=== PATIENT | female | born 1995 | race African-American/Black ===

== ENCOUNTER → 2019-12-25 09:08 | Outpatient (BNVA) | payer OTHER, SELFPAY | PROVIDERS: PCP Physician Assistant; Visit Provider Advanced Practice Midwife | DX: N92.0 Excessive and frequent menstruation with regular cycle (principal); N64.4 Mastodynia | CPT/HCPCS: 99213 ==

== ENCOUNTER 2019-12-26 10:04 | Outpatient (REF) | payer OTHER, SELFPAY ==
[2019-12-26 11:27] LABS: Hematocrit 36.3 % (37-47); Hemoglobin 11.1 g/dl (12.0-16.0); Mean Corpuscular HGB Conc 30.6 g/dl (31.0-35.0); Mean Corpuscular Volume 88.3 fL (80-98); Platelet Count 423 X10*3/uL (160-400); Red Blood Count 4.11 X10*6/uL (4.20-5.50); Red Cell Distribution Width 14.8 % (11.0-16.0); White Blood Count 5.4 X10*3/uL (4.8-10.8)
[2019-12-26 12:14] LABS: Thyroid Stimulating Hormone 1.53 mIU/mL (0.32-4.0)
== END 2019-12-26 10:05 | disposition home or self-care (01) ==
LOC: HO.LAB 10:04
PROVIDERS: PCP Physician Assistant; Visit Provider Advanced Practice Midwife
DX: N92.0 Excessive and frequent menstruation with regular cycle (principal)
CPT/HCPCS: 36415; 84443; 85027

== ENCOUNTER → 2020-02-01 10:39 | Outpatient (BNVA) | payer OTHER, SELFPAY | PROVIDERS: Visit Provider Advanced Practice Midwife | DX: Z76.89 Persons encountering health services in other specified circumstances (principal) ==

== ENCOUNTER → 2020-02-21 14:27 | Outpatient (BNV) | payer OTHER, SELFPAY | PROVIDERS: PCP Physician Assistant; Referring Provider Advanced Practice Midwife; Visit Provider Internal Medicine | DX: D50.9 Iron deficiency anemia, unspecified (principal) | CPT/HCPCS: 99212; 99213 ==

== ENCOUNTER 2020-03-06 07:54 | Outpatient (REF) | payer OTHER, SELFPAY ==
[2020-03-07 21:32] LABS: C. trachomatis RNA TMA NOT DETECTED (NOT DETECTED); N. gonorrhoeae RNA TMA NOT DETECTED (NOT DETECTED)
== END 2020-03-06 07:55 | disposition home or self-care (01) ==
LOC: HO.LAB 07:54
PROVIDERS: PCP Physician Assistant; Visit Provider Advanced Practice Midwife
DX: Z12.4 Encounter for screening for malignant neoplasm of cervix (principal)
CPT/HCPCS: 36415; 87491; 87591; 88141; 88142

== ENCOUNTER 2020-03-23 13:59 | Emergency (ER) | payer OTHER, SELFPAY ==
[2020-03-23 15:01] VITALS: BP 136/76; PULSE 78; RESP 18; TEMP 37.1; O2SAT 98; BMI 34.3
--- NOTE | 2020-03-23 15:42 | XR_ITS ---
EXAMINATION: XR CHEST CLINICAL INFORMATION: Shortness of breath COMPARISON: None TECHNIQUE: Frontal view of the chest was obtained. FINDINGS: Cardiac silhouette is normal in size. The lungs are well aerated. There is no lobar consolidation. No pleural effusion or pneumothorax. No gross osseous abnormality. XR/XR chest 1V IMPRESSION: No acute pulmonary pathology.
--- NOTE | 2020-03-23 15:50 | ED_ITS ---
HPI - SOB/Dyspnea General Chief Complaint: Dyspnea Stated Complaint: sob Time Seen by Provider: 03/23/20 15:42 Source: patient Mode of arrival: ambulatory History of Present Illness HPI Narrative: 24-year-old female with a past medical history of thrombocytosis, anemia, obesity presenting to the ED complaining of intermittent shortness of breath x1 week with mild intermittent chest tightness. Denies cough, fever, chills, LE edema, recent travel, history of blood clots, smoking, oral OCPs, COVID-19 exposure Related Data Previous Rx's Medication Instructions Recorded prenat.vits,lee,[id number] 1 tab PO BEDTIME #30 tab 02/01/20 ferrous sulfate [Iron (ferrous 325 mg PO BID #60 tab 03/12/20 sulfate)] albuterol sulfate 2 puff INHALATION Q4-6H PRN #6.7 g 03/23/20 Allergies Allergy/AdvReac Type Severity Reaction Status Date / Time shellfish derived Allergy Mild ITCHING Verified 03/23/20 15:01 [SHELLFISH DERIVED] Review of Systems Review of Systems: Constitutional: No Weight loss, No Fever, No Chills ENT/Mouth: No Ear Pain, No Nasal Congestion, No Sinus Pain, No Hoarseness, No sore throat, No Rhinorrhea Cardiovascular: +Intermittent Chest tightness, +Intermittent SOB Respiratory: No Cough, No Sputum, No Wheezing Gastrointestinal: No Nausea, No Vomiting, No Diarrhea, No Constipation, No Abdominal pain Skin: No Skin Lesions, No rash Neuro: No Weakness, No Numbness, No Paresthesias Yes all other systems are reviewed and are negative PMFSH Past Medical History Attestation statement: The following information was validated with the patient. Source: nursing notes reviewed Medical History Anemia Obesity (BMI 30.0-34.9) Surgical History Hx of section Hx of wisdom tooth extraction Family History Family History Mother History of mental problems Brother Hx of bipolar disorder Maternal Aunt History of breast cancer in female Paternal Grandmother Family hx-stroke Social History Social History (Reviewed 03/06/20 @ 08:24 by ELMER Verde Alcohol intake: current Alcohol intake frequency: a few times a month Smoking Status: Never smoker Advance Directives: No Advance Directives Information Provided: Yes Physical Exam Vital Signs: Vital Signs: Last Vital Signs Temp 98.7 F 03/23/20 16:00 Pulse 72 03/23/20 16:00 Resp 18 03/23/20 16:00 BP 128/74 03/23/20 16:00 Pulse Ox 98 03/23/20 16:00 Body Mass Index 34.3 Const: General: cooperative and healthy appearing O rientation/consciousness: patient oriented x3 Limitations: no limitations HENMT: Head: Yes normal to inspection Ears: hearing grossly normal bilaterally General nose exam: Normal external nose present Face and sinu s: Yes normal facial exam Eyes: General: appearance normal, both eyes and all related structures EOM: EOMs intact bilaterally Neck: Neck: Yes normal visual inspection and Yes no meningeal signs Resp: Effort & Inspection: normal respiratory effort Auscultation: clear to auscultation bilaterally, no rales, no rhonchi and no wheezes Cardio: Rate: regular rate Heart sounds: S1 normal heart sound present and S2 normal heart sound present GI: Inspection: Yes normal to inspection Palpation (GI): Soft to palpation Skin: Rashes: no rashes Wounds: no wounds Neuro: General: patient oriented x3 and no meningeal signs Gait exam (Neuro): Normal gait present Extrem: Other: no LE edema or calf ttp General: Yes normal to inspection Course Course Course Narrative: Chest x-ray and COVID-19 negative. EKG normal sinus rhythm without ischemic changes MDM - SOB/Dyspnea MDM Narrative Medical decision making narrative: 24-year-old female with a past medical history of thrombocytosis, anemia, obesity presenting to the ED complaining of intermittent shortness of breath x1 week with mild intermittent chest tightness. On exam VSS, NAD, well appearing, lungs CTA, No LE edema or calf ttp. Concern for COVID-19/viral syndrome. Symptoms atypical for ACS or PE. Low concern for pneumonia Plan: EKG, CXR, COVID-19 testing Medical Records Attestation: I reviewed the patient's medical records. Lab Data Labs: Lab Results 03/23/20 Range/Units 15:47 COVID-19 ([facility]) Negative (Negative) COVID-19 Clin Com See Note ECG Data Attestation: I personally reviewed and interpreted this ECG as follows: Discharge Plan Discharge Clinical Impression: Acute viral syndrome Patient Disposition: Home, Self-Care Instructions: Dyspnea (ED) Additional Instructions: Your COVID-19 test was negative. Her x-ray was unremarkable. Your EKG was reassuring. Use albuterol inhaler at home as needed for bronchospasms/shortness of breath/wheezing. Follow up with her primary care doctor. Rest. Stay hydrated. If her symptoms persist or worsen, have constant worsening shortness breath, chest pain, or fever return to the ED Prescriptions: New albuterol sulfate 90 mcg/actuation HFA aerosol inhaler 2 puff inhalation Q4-6H PRN (Reason: shortness of breath or wheezing) Qty: 6.7 RF: 0 No Action ferrous sulfate [Iron (ferrous sulfate)] 325 mg (65 mg iron) Tablet 325 mg PO BID Qty: 60 RF: 3 prenat.vits,lee,[id number] Tablet 1 tab PO BEDTIME Qty: 30 RF: 11 Referrals: Justice Raygoza PA-C [Primary Care Provider] - 2 days
--- NOTE | 2020-03-23 15:51 | ECG_ITS ---
Test Reason : CHEST TIGHTNESS Blood Pressure : / mmHG Vent. Rate : 070 BPM Atrial Rate : 070 BPM P-R Int : 136 ms QRS Dur : 082 ms QT Int : 382 ms P-R-T Axes : 071 029 022 degrees QTc Int : 412 ms Normal sinus rhythm Normal ECG No previous ECGs available Referred By: Leighann Harry Electronically Signed By:JOSEPH MENDENHALL
[2020-03-23 16:00] VITALS: BP 128/74; PULSE 72; RESP 18; TEMP 37.1; O2SAT 98
[2020-03-23 16:09] LABS: COVID-19 Test Negative (Negative); IDNOW Serial# 9DD0AD1C
== END 2020-03-23 17:25 | disposition home or self-care (01) ==
PROVIDERS: Physician Assistant; Emergency Provider Emergency Medicine Emergency Medical Services; PCP Physician Assistant
DX: B34.9 Viral infection, unspecified (principal); R06.00 Dyspnea, unspecified; Z20.822 Contact with and (suspected) exposure to COVID-19; Z79.899 Other long term (current) drug therapy
CPT/HCPCS: 36415; 71045; 87635; 93005; 99283; 99284

== ENCOUNTER 2020-06-05 09:27 | Outpatient (REF) | payer OTHER, SELFPAY | END 2020-06-05 09:28 | disposition home or self-care (01) | LOC: HO.LAB 09:27 | PROVIDERS: PCP Physician Assistant; Visit Provider Advanced Practice Midwife | DX: Z31.69 Encounter for other general counseling and advice on procreation (principal); R87.615 Unsatisfactory cytologic smear of cervix; L02.92 Furuncle, unspecified | CPT/HCPCS: 88142; 99212 ==

== ENCOUNTER 2020-06-20 20:02 | Emergency (ER) | payer OTHER, SELFPAY ==
[2020-06-20 20:06] VITALS: BP 140/74; PULSE 84; RESP 16; TEMP 36.7; O2SAT 100; BMI 35.9
--- NOTE | 2020-06-21 00:59 | ED.GENADULT ---
HPI - General Adult General Chief complaint: General Medical Stated complaint: swelling on injection site/Headache Time Seen by Provider: 06/20/20 21:50 Source: patient Mode of arrival: ambulatory Limitations: no limitations History of Present Illness HPI narrative: Patient just got the modern a short yesterday noticed slight swelling at the site of injection feeling body aches tiredness no fever no chills no cough Related Data Previous Rx's Medication Instructions Recorded prenat.vits,lee,hso-hggl-wlwow 1 tab PO BEDTIME #30 tab 02/01/20 ferrous sulfate [Iron (ferrous 325 mg PO BID #60 tab 03/12/20 sulfate)] hydroxyzine HCl 10 mg tablet 20 mg PO BEDTIME PRN #30 tab 04/11/20 Allergies Allergy/AdvReac Type Severity Reaction Status Date / Time shellfish derived Allergy Mild ITCHING Verified 06/05/20 09:49 [SHELLFISH DERIVED] Review of Systems Review of Systems: Yes all other systems are reviewed and are negative PMFSH Past Medical History Medical History Anemia Obesity (BMI 30.0-34.9) Surgical History Hx of section Hx of wisdom tooth extraction Family History Family History Mother History of mental problems Brother Hx of bipolar disorder Maternal Aunt History of breast cancer in female Paternal Grandmother Family hx-stroke Social History Social History Alcohol intake: current Alcohol intake frequency: a few times a month Smoking Status: Never smoker Advance Directives: No Physical Exam Vital Signs: Vital Signs: Last Vital Signs Temp 98.1 F 06/20/20 20:06 Pulse 84 06/20/20 20:06 Resp 16 06/20/20 20:06 BP 140/74 H 06/20/20 20:06 Pulse Ox 100 06/20/20 20:06 Body Mass Index 35.9 Appearance: Alert. Oriented X3. No acute distress. Eyes: Pupils equal, round and reactive to light. ENT: Pharynx normal. Neck: Normal inspection. Neck supple. CVS: Normal heart rate and rhythm. Pulses normal. Respiratory: No respiratory distress. Breath sounds normal. Abdomen: Soft and nontender. Bowel sounds are present, no mass palpable, Skin: Skin warm and dry. Normal skin color. Normal skin turgor. Extremities: No lower extremity edema. Slight tenderness at the site of vaccine no erythema no signs of infection Neuro: Oriented X 3. No motor deficit. No sensory deficit. Medical Decision Making MDM Narrative Medical decision making narrative: Patient with normal response to COVID-19 vaccine will discharge patient home Discharge Plan Discharge Clinical Impression: Normal physical exam Patient Disposition: Home, Self-Care Instructions: Normal Exam (ED) Additional Instructions: The symptoms are part of effect of COVID-19 vaccine. Take Tylenol/ibuprofen for pain drink plenty of fluids Prescriptions: No Action ferrous sulfate [Iron (ferrous sulfate)] 325 mg (65 mg iron) Tablet 325 mg PO BID Qty: 60 RF: 3 hydroxyzine HCl 10 mg tablet 20 mg PO BEDTIME PRN (Reason: for insomnia) Qty: 30 RF: 2 prenat.vits,lee,bmb-gqnj-outgr Tablet 1 tab PO BEDTIME Qty: 30 RF: 11
== END 2020-06-21 01:09 | disposition home or self-care (01) ==
PROVIDERS: Emergency Provider Internal Medicine; PCP Physician Assistant
DX: R51.9 Headache, unspecified (principal); Z79.899 Other long term (current) drug therapy
CPT/HCPCS: 99283

== ENCOUNTER → 2020-09-13 09:04 | Outpatient (BNVA) | payer OTHER, SELFPAY | PROVIDERS: PCP Physician Assistant; Visit Provider Advanced Practice Midwife | DX: Z30.09 Encounter for other general counseling and advice on contraception (principal); B37.3 Candidiasis of vulva and vagina | CPT/HCPCS: 99212 ==

== ENCOUNTER 2020-11-11 11:01 | Outpatient (REF) | payer OTHER, SELFPAY ==
[2020-11-11 11:51] LABS: MANUAL DIFF FLAG NO
[2020-11-11 12:03] LABS: Basophils Percent Auto 0.4 % (0-2); Eosinophils Absolute Auto 0.1 X10*3/uL (0.0-0.4); Eosinophils Percent Auto 1.2 % (0-4); Hematocrit 36.2 % (37-47); Hemoglobin 11.6 g/dl (12.0-16.0); Imm Gran Abs Auto 0.02 X10*3/uL (0.00-0.03); Imm Gran Pct Auto 0.4 % (0.0-0.4); Lymphocytes Percent Auto 52.8 % (20-40); Mean Corpuscular Volume 90.5 fL (80-98); Mean Platelet Volume 9.8 fL (9.4-12.3); Monocytes Absolute Auto 0.5 X10*3/uL (0.1-1.2); Monocytes Percent Auto 8.2 % (2-11); Neutrophils Absolute Auto 2.1 X10*3/uL (2.0-8.3); Platelet Count 397 X10*3/uL (160-400); Red Cell Distribution Width 12.7 % (11.0-16.0); White Blood Count 5.6 X10*3/uL (4.8-10.8)
[2020-11-11 12:16] LABS: Alanine Aminotransferase 12 U/L (0-31); Albumin Level 3.9 g/dL (3.5-5.0); Alkaline Phosphatase 97 U/L (39-117); Anion Gap 12 (12-20); Aspartate Amino Transferase 17 U/L (5-31); Bilirubin Total 0.5 mg/dL (0.0-1.0); Blood Urea Nitrogen 7 mg/dL (9-16); Calcium 9.4 mg/dL (8.4-10.2); Carbon Dioxide 24 mmol/L (22-29); Chloride 109 mmol/L (96-108); Estimated Glomerular Filt Rate > 60; Glucose Fasting 95 mg/dL (60-99); Potassium 4.2 mmol/L (3.3-5.1); Sodium 141 mmol/L (135-145)
[2020-11-11 12:29] LABS: Estimated Average Glucose 100 mg/dL; Hemoglobin A1c % 5.1 %
== END 2020-11-11 11:02 | disposition home or self-care (01) ==
LOC: HO.LAB 11:01
PROVIDERS: PCP Physician Assistant; Visit Provider Physician Assistant
DX: E66.9 Obesity, unspecified (principal); D47.3 Essential (hemorrhagic) thrombocythemia
CPT/HCPCS: 36415; 80053; 83036; 84443; 85025

== ENCOUNTER 2020-12-30 18:56 | Emergency (ER) | payer OTHER, SELFPAY ==
[2020-12-30 19:10] VITALS: BP 129/83; PULSE 91; RESP 18; TEMP 37.1; O2SAT 99; BMI 37.3
[2020-12-30 20:07] LABS: Influenza A PCR NEGATIVE (Negative); Influenza B PCR NEGATIVE (Negative); Resp Syncy Virus RNA Qual PCR NEGATIVE (Negative); SARS COV2 PCR INHOUSE NEGATIVE (Negative)
--- NOTE | 2020-12-30 20:12 | ED.URI ---
HPI - URI/Sore Throat General Chief Complaint: Upper Respiratory Symptoms Stated Complaint: congestion Time Seen by Provider: 12/30/20 20:12 Source: patient Mode of arrival: ambulatory Limitations: no limitations History of Present Illness HPI Narrative: Patient sent positive for metapneumovirus patient been vaccinated against COVID-19 been complaining of cough and congestion no fever no chills no significant shortness of breath Related Data Home Medications Medication Instructions Recorded Confirmed quetiapine 25 mg tablet (Seroquel) 25 mg PO DAILY 11/11/20 11/11/20 sertraline 25 mg tablet 25 mg PO DAILY 11/11/20 11/11/20 Previous Rx's Medication Instructions Recorded ferrous sulfate 325 mg (65 mg 325 mg PO BID #60 tab 08/05/20 iron) tablet (Iron (ferrous sulfate)) hydroxyzine HCl 10 mg tablet 20 mg PO BEDTIME PRN #30 tab 08/22/20 etonogestrel 0.12 mg-ethinyl 1 vag ring VAGINAL Q4W #1 ea 09/13/20 estradiol 0.015 mg/24 hr vaginal ring amoxicillin 875 mg-potassium 1 tab PO BID #20 tab 12/30/20 clavulanate 125 mg tablet (Augmentin) benzonatate 100 mg capsule 100 mg PO TID PRN #20 cap 12/30/20 (Tessalon Perles) Allergies Allergy/AdvReac Type Severity Reaction Status Date / Time shellfish derived Allergy Mild ITCHING Verified 11/11/20 10:35 [SHELLFISH DERIVED] Review of Systems Review of Systems: Yes all other systems are reviewed and are negative PMFSH Past Medical History Medical History Anemia Obesity (BMI 30.0-34.9) Surgical History Hx of section Hx of wisdom tooth extraction Family History Family History Mother History of mental problems Brother Hx of bipolar disorder Maternal Aunt History of breast cancer in female Paternal Grandmother Family hx-stroke Social History Social History Housing: Apartment Alcohol intake: current Alcohol intake frequency: holidays/special occasions only Patient Tobacco Use Status: Never used Tobacco e-Cigarette/Vaping Use: Never Used Second Hand Smoke Exposure: No Advance Directives: No Advance Directives Information Provided: No service: No 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al status: employed 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 Oriented X3. No acute distress. Eyes: PERRLA, No Nystagmus ENT: Pharynx normal. Oral Mucosa moist Neck: Normal inspection. Neck supple. CVS: Normal heart rate and rhythm. Pulses normal. Respiratory: No respiratory distress. Equal air entry bilateral, no wheezing/rales/rhonchi Abdomen: Soft and nontender. Bowel sounds are present, no mass palpable, no CVA tenderness Skin: Skin warm and dry. Normal skin color. Normal skin turgor. Extremities: No lower extremity edema. No calf tenderness Neuro: Oriented X 3. No motor deficit. No sensory deficit.No cerebellar signs , cranial nerves II-XII intact MDM - URI/Sore Throat Lab Data Labs: Lab Results 12/30/20 Range/Units 19:18 Influenza Type A (PCR) NEGATIVE (Negative) Influenza Type B (PCR) NEGATIVE (Negative) RSV RNA Qual (PCR) NEGATIVE (Negative) SARS-CoV-2 RNA (RT-PCR) NEGATIVE (Negative) Discharge Plan Discharge Clinical Impression: Bronchitis Patient Disposition: Home, Self-Care Instructions: Acute Bronchitis (ED) Additional Instructions: Drink plenty of fluids Cough syrup advised Prescriptions: New amoxicillin-pot clavulanate [Augmentin] 875-125 mg tablet 1 tab PO BID Qty: 20 RF: 0 benzonatate [Tessalon Perles] 100 mg capsule 100 mg PO TID PRN (Reason: cough) Qty: 20 RF: 0 No Action hydroxyzine HCl 10 mg tablet 20 mg PO BEDTIME PRN (Reason: for insomnia) Qty: 30 RF: 2 ferrous sulfate [Iron (ferrous sulfate)] 325 mg (65 mg iron) Tablet 325 mg PO BID Qty: 60 RF: 3 quetiapine [Seroquel] 25 mg tablet 25 mg PO DAILY RF: 0 sertraline 25 mg tablet 25 mg PO DAILY RF: 0 etonogestrel-ethinyl estradiol 0.12-0.015 mg/24 hr ring 1 vag ring vaginal Q4W Qty: 1 RF: 12
[2020-12-30] MEDS: Amoxicillin/Potassium Clav 875 MG TABLET PO (21:54)
== END 2020-12-30 22:15 | disposition home or self-care (01) ==
PROVIDERS: Emergency Provider Internal Medicine; PCP Physician Assistant
DX: J40 Bronchitis, not specified as acute or chronic (principal); Z20.822 Contact with and (suspected) exposure to COVID-19
CPT/HCPCS: 0241U; 36415; 99283

== ENCOUNTER 2021-01-06 11:00 | Outpatient (RCR) | payer OTHER, SELFPAY ==
--- NOTE | 2020-11-29 13:31 | MHC.PT.EP ---
[facility] [place] Office [place] Office [place] Office [address] Davey Sanchez [address] [phone] F: [phone] F: [phone] F: [phone] F: [phone] Physical Therapy Plan of Care Date of Evaluation: Date of Surgery: n/a Diagnosis: Intervertebral disc disorder Assessment: Patient is a 25 year old female presenting to PT with complaints of pain in her low back. Pt reports onset of pain began about 2 years ago due to falling while . She presents today with impairments in pain, lumbar ROM, hip strength, core strength, and n+t sx, and posture. 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 Clinical presentation today is most consistent with signs and sx associated with low back pain that is likely myofascial in nature and pt will benefit from skilled PT to address the following problems and impairments noted upon evaluation: pain, lumbar ROM, hip strength, core strength, and n+t sx, and posture. These problems limit the patient with the following functional activities: taking care of 2 year old son, bending, lifting, ADLs, ambulation, stair negotiation. The prescribed treatment plan of care is medically necessary. Co-morbidities of hx were identified and taken into considerations of plan of care. Pt was educated on HEP, role of PT, prognosis, POC. Frequency and Duration: The patient will be seen 2x week x 4 weeks Short Term Goals: Pt will demonstrate improved postural awareness by sitting with biomechanically correct posture without cues throughout session to improve overall postural function in 2 weeks. Pt will demonstrate improved TA recruitment in hooklying, sitting, and standing in 2 weeks. Pt will demonstrate improved hip strength by 1/3 MMT for improved lumbopelvic stability. Pt will report proximalization of sx in 2 weeks for improved QOL. Mcc Goals: Pt will demonstrate improved ability to complete all ADLs in 4 weeks for improved role at home. Pt will demonstrate good mechanics with lifting 20# from floor to waist in 4 weeks to decrease risk of reinjury when lifting her son. Pt will demonstrate ability to ambulate and negotiate stairs with min to no pain in 4 weeks to allow return to PLOF. Treatment Plan: Modalities to reduce pain, spasms and effusion. Manual therapy to restore motion and function. Therapeutic exercise to improve strength and flexibility. Neuromuscular re-education for posture and balance. Therapeutic activities to return to functional activities of daily living. Electronically signed by: Liane Kulkarni, PT, DPT, ATC Please sign and return to therapist. Thank you for your referral.
--- NOTE | 2021-01-13 15:24 | MHC.PT.DC ---
[facility] [place] Office [place] Office [place] Office [address] Davey Sanchez [address] [phone] F: [phone] F: [phone] F: [phone] F: [phone] Physical Therapy Discharge Report Diagnosis: Intervertebral disc disorder Date of Surgery: n/a Date of Evaluation: 11/29/20 Date of Discharge: 01/13/21 Treatments to Date: 7 Cancellations to Date: 3 No Shows to Date: 3 Discharge Status: Visit Non-compliance Discharge Summary: Pt has failed to comply with [facility] [place] policy and no showed her final 2 appointments. Current pt status unknown. Electronically signed by: Liane Kulkarni, PT, DPT, ATC Please sign and return to therapist. Thank you for your referral.
== END 2021-01-13 15:24 | disposition home or self-care (01) ==
LOC: HO.PT 11:00
PROVIDERS: PCP Physician Assistant; Visit Provider Physician Assistant
DX: M51.9 Unspecified thoracic, thoracolumbar and lumbosacral intervertebral disc disorder (principal); M54.16 Radiculopathy, lumbar region
CPT/HCPCS: 97110; 97140; 97161

== ENCOUNTER → 2021-01-30 11:17 | Outpatient (BNVA) | payer OTHER, SELFPAY | PROVIDERS: PCP Physician Assistant; Visit Provider Advanced Practice Midwife ==

== ENCOUNTER 2021-02-07 07:56 | Outpatient (REF) | payer OTHER, SELFPAY ==
--- NOTE | 2021-02-07 08:00 | EEG_ITS ---
This is a 16-channel EEG with an EKG lead. The patient is reported awake and drowsy during the tracing. Background EEG rhythm during wakefulness is about 8 to 10 hertz, 5 to 50 microvolt posteriorly, lower amplitude fast anteriorly. The patient transitioned in and out of drowsiness. During later part of the tracing, there were few central sharp waves at times localized to right hemisphere and at other times to left. Photic stimulation did not produce any significant abnormality. Hyperventilation was not performed. Cardiac lead did not reveal any significant abnormality. IMPRESSION: Mildly abnormal EEG suggestive of seizure tendency. I recommend ambulatory EEG or a sleep-deprived EEG for better definition. MD JOSELO Suarez/ROSALINA / [id number]
== END 2021-02-07 07:57 | disposition home or self-care (01) ==
LOC: HO.NEURO 07:56
PROVIDERS: Visit Provider Physician Assistant
DX: R55 Syncope and collapse (principal)
CPT/HCPCS: 95816

== ENCOUNTER 2021-03-03 13:51 | Outpatient (REF) | payer OTHER, SELFPAY ==
[2021-03-03 15:02] LABS: Binax Internal Control QC Valid; Binax Lot number: 9864; Binax Now Covid-19 Ag Negative (Negative)
== END 2021-03-03 13:52 | disposition home or self-care (01) ==
LOC: HO.LAB 13:51
PROVIDERS: Visit Provider Internal Medicine
DX: Z20.822 Contact with and (suspected) exposure to COVID-19 (principal)
CPT/HCPCS: 36415; C9803

== ENCOUNTER 2021-05-29 09:03 | Outpatient (REF) | payer OTHER, SELFPAY ==
--- NOTE | ~2021-05-29 | MR_ITS ---
EXAMINATION: MR OF THE BRAIN WITHOUT CONTRAST CLINICAL INFORMATION: 26-year-old with complex partial seizure disorder. COMPARISON: None TECHNIQUE: Multiplanar multisequence MR imaging of the brain was done without IV contrast. IV contrast could not be administered at this time due to inability to obtain IV access. Study is limited in this regard. FINDINGS: Brain Volume: Within normal limits. Structural: No malformations. Brain and Meninges: DWI sequence demonstrates no restricted diffusion. Specifically, there is no evidence for acute or subacute cerebral ischemia. The brain is normal in morphology and signal intensity. Gradient refocused imaging demonstrates no evidence for hemorrhage, hemosiderin staining or unusual mineral deposition. Coronal oblique imaging demonstrates that the mesial temporal lobe structures are bilaterally symmetric and normal in morphology and signal intensity. Corbin-white matter differentiation is well maintained. Ventricles and Subarachnoid Spaces: The ventricular system and subarachnoid spaces are within normal limits without hydrocephalus. Orbital Structures: The visualized orbital structures are grossly unremarkable within the limitations of the study. Vascular: Signal voids are noted in the visualized major intracranial vessels. Sinuses and Osseous Structures: Minor mucosal thickening in the ethmoid complex noted. Osseous marrow signal intensity appears grossly within normal limits. MR/MR head/brain wo con IMPRESSION: 1. Normal noncontrast MRI of the brain. No specific cause for complex partial seizures are identified. 2. Contrast could not be administered at this time due to inability to obtain IV access.
== END 2021-05-29 09:04 | disposition home or self-care (01) ==
LOC: HO.MRI 09:03
PROVIDERS: Visit Provider Psychiatry & Neurology Neurology
DX: G40.209 Localization-related (focal) (partial) symptomatic epilepsy and epileptic syndromes with complex partial seizures, not intractable, without status epilepticus (principal)
CPT/HCPCS: 70551

== ENCOUNTER 2022-05-17 04:55 | Emergency (ER) | payer OTHER, SELFPAY ==
--- NOTE | ~2022-05-17 | US_ITS ---
EXAMINATION: US OBSTETRICAL ULTRASOUND CLINICAL INFORMATION: Vibrant fragment with upper quadrant pain and vaginal bleeding. COMPARISON: None available. LMP: 04/11/2022. Gestational age by maternal dates is 5 weeks, 1 day. Estimated date of delivery by maternal dates is 01/16/2023. TECHNIQUE: Multiple 2-D grayscale and Doppler ultrasound images of the pelvis were obtained. FINDINGS: Uterus: Anteverted/anteflexed measuring approximately 9.8 x 4.3 x 5.9 cm. No intra or extrauterine gestation is identified. The endometrial stripe measures up to 1.2 cm without abnormality. The cervix is closed measuring up to 2.2 cm in length. Trace free fluid in the cul-de-sac. The right maternal ovary measures 3.4 x 1.5 x 2.9 cm. A small homogeneous echogenic focus measures 0.4 cm. Color Doppler showed no abnormal vascular flow. No left adnexal abnormality. The left maternal ovary measures 2.5 x 1.1 x 2.1 cm. No left adnexal abnormality. The urinary bladder is mildly distended without focal abnormality. US/US OB pelvic and transvaginal IMPRESSION: No intrauterine or extrauterine gestation identified. No other significant abnormality. Small echogenic focus associated with the right ovary may represent a small dermoid.
[2022-05-17 04:58] VITALS: BP 128/84; PULSE 86; RESP 16; TEMP 36.7; O2SAT 98; BMI 37.3
--- NOTE | 2022-05-17 05:23 | ED_ITS ---
HPI - Female Genitourinary General Chief complaint: Vaginal Bleeding Stated complaint: , vaginal bleeding Time Seen by Provider: 05/17/22 05:22 Source: patient Mode of arrival: ambulatory Limitations: no limitations History of Present Illness HPI Narrative: Patient 2 para 1, 5 weeks blood type O positive comes here for left lower abdominal pain with vaginal bleeding started at 01:00 initially was bright red no darker in color otherwise during this patient was fine has some nausea no other complaints no urinary complaint 1st miscarriage was at 11 weeks of gestation Related Data Home Medications Medication Instructions Recorded Confirmed lamotrigine 100 mg tablet 1 tab PO DAILY 07/01/21 09/15/21 Previous Rx's Medication Instructions Recorded hydroxyzine HCl 10 mg tablet 20 mg PO BEDTIME PRN for insomnia 08/22/20 #30 tabs yxxpdlocdu-zxjlahipofrpp-tnrngsas 1 cap PO Q6H PRN pain 4 days #16 05/05/21 50 mg-325 mg-40 mg capsule caps ferrous sulfate 325 mg (65 mg 325 mg PO BID #60 tabs 07/01/21 iron) tablet (Iron (ferrous sulfate)) vitamin with calcium 1 tab PO DAILY #90 tabs 09/15/21 no.72-iron 27 mg-folic acid 1 mg tablet ( Vitamins Plus Low Iron) prenat.vits,lee,cer-zhit-zwlfo 1 tab PO DAILY #30 tabs 05/15/22 Allergies Allergy/AdvReac Type Severity Reaction Status Date / Time shellfish derived Allergy Mild ITCHING Verified 05/15/22 16:09 [SHELLFISH DERIVED] Review of Systems Review of Systems: Yes all other systems are reviewed and are negative PMFSH Past Medical History Medical History Anemia H/O partial seizures Obesity (BMI 30.0-34.9) Surgical History Hx of section Hx of wisdom tooth extraction Family History Family History Mother History of mental problems Brother Hx of bipolar disorder Maternal Aunt History of breast cancer in female Paternal Grandmother Family hx-stroke Maternal Aunt Breast cancer Stomach cancer Social History Social History Household Members: Spouse and Children Housing: Apartment Are you a primary care transitions nurse to a significant other at home: No Do you presently have visiting nurse or other home services: No Alcohol intake: current Alcohol intake frequency: holidays/special occasions only Patient Tobacco Use Status: Never used Tobacco Smoked in Last 30 Days: No e-Cigarette/Vaping Use: Never Used Second Hand Smoke Exposure: No Use of substances other than those prescribed or required for medical reasons: No Advance Directives: No service: No 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al status: employed 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: Cognitive needs: No Hearing needs: No Vision needs: No Physical Exam Vital Signs: Vital Signs: Last Vital Signs Temp 98.1 F 05/17/22 07:00 Pulse 78 05/17/22 07:00 Resp 17 05/17/22 07:00 BP 133/79 05/17/22 07:00 Pulse Ox 99 05/17/22 07:00 O2 Del Method 05/17/22 07:00 BMI result Body Mass Index 37.3 Appearance: Alert. Oriented X3. No acute distress. ENT: Pharynx normal. Oral Mucosa moist Neck: Normal inspection. Neck supple. CVS: Normal heart rate and rhythm. Pulses normal. Respiratory: No respiratory distress. Equal air entry bilateral, no wheezing/rales/rhonchi Abdomen: Soft , mild tenderness left lower quadrant no rebound tenderness , slight guarding, Bowel sounds are present, no mass palpable, no CVA tenderness Skin: Skin warm and dry. Normal skin color. Normal skin turgor. Extremities: No lower extremity edema. No calf tenderness Neuro: Oriented X 3. No motor deficit. Medical Decision Making Medical Decision Making [facility] Narrative: Patient with very low HCG level of 15 significant vaginal bleeding likely th reatened . Final ultrasound report is pending to rule out rupture ectopic. Case discussed with Dr. Marshall, Dr. Coats to follow Lab Data [facility] Lab Attestation statement: I reviewed the patient's lab results. 05/17/22 05:33 05/17/22 05:33 Labs: Lab Results 05/17/22 05/17/22 Range/Units 05:33 05:33 WBC 7.1 (4.8-10.8) X10*3/uL RBC 3.99 L (4.20-5.50) X10*6/uL Hgb 11.4 L (12.0-16.0) g/dl Hct 35.7 L (37.0-47.0) % MCV 89.5 (80.0-98.0) fL MCH 28.6 (27.0-33.0) pg MCHC 31.9 (31.0-35.0) g/dl RDW 13.0 (11.0-16.0) % Plt Count 392 (160-400) X10*3/uL MPV 9.3 L (9.4-12.3) fL Immature Gran % (Auto) 0.1 (0.0-0.4) % Neut % (Auto) 47.9 (45-73) % Lymph % (Auto) 37.3 (20-40) % Kidder % (Auto) 10.9 (2-11) % Eos % (Auto) 3.1 (0-4) % Baso % (Auto) 0.7 (0-2) % Lymph # (Auto) 2.6 (1.2-4.9) X10*3/uL Kidder # (Auto) 0.8 (0.1-1.2) X10*3/uL Eos # (Auto) 0.2 (0.0-0.4) X10*3/uL Baso # (Auto) 0.1 (0.0-0.2) X10*3/uL Abs Immat Gran (auto) 0.01 (0.00-0.03) X10*3/uL Absolute Neuts (auto) 3.4 (2.0-8.3) x10*3/uL Absolute Nucleated RBC 0.000 (0.0-0.012) X10*3/uL Nucleated RBC % (auto) 0.0 (0.0-0.2) /100WBC Sodium 139 (135-145) mmol/L Potassium 3.8 (3.3-5.1) mmol/L Chloride 106 (96-108) mmol/L Carbon Dioxide 24 (22-29) mmol/L Anion Gap 13 (12-20) BUN 7 L (9-16) mg/dL Creatinine 0.78 (0.5-1.4) mg/dL Estim Creat Clear Calc 103.5 Estimated GFR > 60 Random Glucose 97 (60-115) mg/dL Calcium 9.0 (8.4-10.2) mg/dL Total Bilirubin 0.6 (0.0-1.0) mg/dL AST 20 (5-31) U/L ALT 17 (0-31) U/L Alkaline Phosphatase 114 (39-117) U/L Total Protein 6.8 (6.5-8.0) g/dL Albumin 3.9 (3.5-5.0) g/dL Beta HCG, Quant 15 mIU/mL Discharge Plan Discharge Clinical Impression: Threatened in early Patient Disposition: Still a Patient Instructions: Threatened Miscarriage (ED) Additional Instructions: Care as advised Follow-up with OBG Dr. Marshall Prescriptions: No Action hydroxyzine HCl 10 mg tablet 20 mg PO BEDTIME PRN (Reason: for insomnia) Qty: 30 2RF lamotrigine 100 mg tablet 1 tab PO DAILY ferrous sulfate [Iron (ferrous sulfate)] 325 mg (65 mg iron) tablet 325 mg PO BID Qty: 60 3RF skfkjetfvh-vtglwwrnopsfs-gnhq 50-325-40 mg capsule 1 cap PO Q6H PRN (Reason: pain) 4 Days Qty: 16 0RF prenat.vits,lee,hqo-xciz-zwivz Tablet 1 tab PO DAILY Qty: 30 9RF Vitamin Plus Low Iron 27 mg iron- 1 mg tablet 1 tab PO DAILY Qty: 90 4RF Referrals: Polo Marshall MD [Physician] - 3 days
[2022-05-17 05:37] LABS: Basophils Absolute Auto 0.1 X10*3/uL (0.0-0.2); Basophils Percent Auto 0.7 % (0-2); Eosinophils Absolute Auto 0.2 X10*3/uL (0.0-0.4); Eosinophils Percent Auto 3.1 % (0-4); Hematocrit 35.7 % (37.0-47.0); Hemoglobin 11.4 g/dl (12.0-16.0); Imm Gran Abs Auto 0.01 X10*3/uL (0.00-0.03); Imm Gran Pct Auto 0.1 % (0.0-0.4); Lymphocytes Absolute Auto 2.6 X10*3/uL (1.2-4.9); Lymphocytes Percent Auto 37.3 % (20-40); MANUAL DIFF FLAG NO; Mean Corpuscular HGB Conc 31.9 g/dl (31.0-35.0); Mean Corpuscular Hemoglobin 28.6 pg (27.0-33.0); Mean Corpuscular Volume 89.5 fL (80.0-98.0); Mean Platelet Volume 9.3 fL (9.4-12.3); Monocytes Absolute Auto 0.8 X10*3/uL (0.1-1.2); Monocytes Percent Auto 10.9 % (2-11); Neutrophils Absolute Auto 3.4 x10*3/uL (2.0-8.3); Neutrophils Percent Auto 47.9 % (45-73); Platelet Count 392 X10*3/uL (160-400); Red Blood Count 3.99 X10*6/uL (4.20-5.50); White Blood Count 7.1 X10*3/uL (4.8-10.8)
[2022-05-17 05:59] LABS: Alanine Aminotransferase 17 U/L (0-31); Albumin Level 3.9 g/dL (3.5-5.0); Alkaline Phosphatase 114 U/L (39-117); Anion Gap 13 (12-20); Aspartate Amino Transferase 20 U/L (5-31); Bilirubin Total 0.6 mg/dL (0.0-1.0); Blood Urea Nitrogen 7 mg/dL (9-16); Carbon Dioxide 24 mmol/L (22-29); Chloride 106 mmol/L (96-108); Creatinine Clr Calc Pharmacy 103.5; Estimated Glomerular Filt Rate > 60; Glucose Random 97 mg/dL (60-115); Potassium 3.8 mmol/L (3.3-5.1); Sodium 139 mmol/L (135-145); Total Protein 6.8 g/dL (6.5-8.0)
[2022-05-17 06:00] LABS: HCG Quantitative 15 mIU/mL
--- NOTE | 2022-05-17 06:53 | PC.NURSE ---
Pt ambulated independently back from ultrasound. Pt A&Ox4, reports 6/10 intermittent stabbing/sharp/cramping pain to [facility]. States pain woke her up at 0100 this AM and noticed some spotting, then at 0430 with heavy medium to dark brown blood, now on her 2nd pad.
[2022-05-17 07:00] VITALS: BP 133/79; PULSE 78; RESP 17; TEMP 36.7; O2SAT 99
--- NOTE | 2022-05-17 07:02 | P.CONOB_ITS ---
[employer] - CN: HPI Data of Consult Consult date: 05/17/22 Primary Care Provider: Justice Raygoza PA-C Consult Narrative Narrative: I was consulted at 06:[address] Cortés regarding Filemon Helton who is a 27 year old 5 1011, LMP 01/21 making her by today at 5 weeks and 1 day of gestation presenting to the emergency room complaining of vaginal spotting/ bleeding that started few hours prior to presentation associated with left lower quadrant pain. No care yet. The patient had a negative test after missing her period followed by a positive test 2 days ago at the urgent care. Blood type O positive. HCG done today in the emergency room was 15. H&H 11.4/35.7 cc:: CC: OB [facility] Past Medical History Medical History Anemia H/O partial seizures Obesity (BMI 30.0-34.9) Family History Family History Mother History of mental problems Brother Hx of bipolar disorder Maternal Aunt History of breast cancer in female Paternal Grandmother Family hx-stroke Maternal Aunt Breast cancer Stomach cancer Surgical History Surgical History Hx of section Hx of wisdom tooth extraction Social History Social History Household Members: Spouse and Children Housing: Apartment Are you a primary women's health care nurse practitioner to a significant other at home: No Do you presently have visiting nurse or other home services: No Alcohol intake: current Alcohol intake frequency: holidays/special occasions only Patient Tobacco Use Status: Never used Tobacco Smoked in Last 30 Days: No e-Cigarette/Vaping Use: Never Used Second Hand Smoke Exposure: No Use of substances other than those prescribed or required for medical reasons: No Advance Directives: No service: No 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al status: employed 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: Cognitive needs: No Hearing needs: No Vision needs: No Meds Allergies Allergy/AdvReac Type Severity Reaction Status Date / Time shellfish derived Allergy Mild ITCHING Verified 05/15/22 16:09 [SHELLFISH DERIVED] Home Medications Medication Instructions Recorded Confirmed Last Taken Type lamotrigine 100 mg tablet 1 tab PO DAILY 07/01/21 09/15/21 Unknown History [employer] Physical Exam Vitals Vital signs: Temp Pulse Resp BP Pulse Ox O2 Del Method 98.1 F 78 17 133/79 99 05/17/22 07:00 05/17/22 07:00 05/17/22 07:00 05/17/22 07:00 05/17/22 07:00 05/17/22 07:00 BMI result Body Mass Index 37.3 Abdomen Auscultation/Inspection/Palpation: Normal bowel sounds, Soft, Non-distended, No tenderness and No CVA tenderness Female Genitalia (Pelvic) Bladder/Urethra: Normal meatus Vulva: No lesions Vagina: Nontender Cervix: Grossly normal, No discharge and No cervical motion tenderness Uterus: Normal size Additional Comments: No evidence of active bleeding [employer] - Results Labs 05/17/22 05:33 05/17/22 05:33 Labs: Short CBC 05/17/22 Range/Units 05:33 WBC 7.1 (4.8-10.8) X10*3/uL Hgb 11.4 L (12.0-16.0) g/dl Hct 35.7 L (37.0-47.0) % Plt Count 392 (160-400) X10*3/uL BMP 05/17/22 05:33 Sodium 139 Potassium 3.8 Chloride 106 Carbon Dioxide 24 BUN 7 L Creatinine 0.78 Calcium 9.0 Liver Function 05/17/22 Range/Units 05:33 Total Bilirubin 0.6 (0.0-1.0) mg/dL AST 20 (5-31) U/L ALT 17 (0-31) U/L Alkaline Phosphatase 114 (39-117) U/L Albumin 3.9 (3.5-5.0) g/dL Assessment and Plan (1) Early stage of : Status: Acute Plan Recommended to Dr. Sanders to wait for the official ultrasound report for further management. 07:38 ultrasound report is final showing the following: No intrauterine or extrauterine gestation identified. No other significant abnormality. ? Small echogenic focus associated with the right ovary may represent a small dermoid. GC and chlamydia taken, BV panel with Trichomonas collected. HCG quantitative and outpatient follow-up tomorrow. SAB/ectopic warnings. Instructions given to patient to come back to emergency room with heavy vaginal bleeding or abdominal pain, nausea or vomiting. All questions answered, the patient verbalized understanding. Time Spent With Patient Time: Total time managing care of this patient today ____ minutes.
--- NOTE | 2022-05-17 10:17 | MHC.EDTECH ---
patient with OBGYN for pelvic exam. patient tolerated well, waiting on results.
[2022-05-17 10:22] VITALS: BP 137/78; PULSE 87; RESP 17; O2SAT 98
[2022-05-17 12:32] LABS: CT PCR NOT DETECTED (Not Detect.); NG PCR NOT DETECTED (Not Detect.)
== END 2022-05-17 10:40 | disposition home or self-care (01) ==
PROVIDERS: Obstetrics & Gynecology; Emergency Provider Internal Medicine; PCP Physician Assistant
DX: O20.9 Hemorrhage in early pregnancy, unspecified (principal); Z3A.01 Less than 8 weeks gestation of pregnancy; Z79.899 Other long term (current) drug therapy
CPT/HCPCS: 0353U; 36415; 76801; 76817; 80053; 84702; 85025; 99284

== ENCOUNTER 2022-05-17 15:20 | Emergency (ER) | payer OTHER, SELFPAY ==
[2022-05-17 15:29] VITALS: BP 136/81; PULSE 84; RESP 16; TEMP 36; O2SAT 100; BMI 37.3
--- NOTE | 2022-05-17 16:04 | ED.PREGNANCY ---
HPI - General Chief complaint: Vaginal Bleeding Stated complaint: Arm pain after getting blood work Time Seen by Provider: 05/17/22 16:02 History of Present Illness HPI Narrative: 27-year-old female at 5 weeks 1 day gestation presents to the emergency department with complaints of increased bright red bleeding and clots starting around 1:00 p.m.. She states she was seen earlier today in this emergency department with vaginal spotting/bleeding an LLQ abdominal pain and assessed by Dr Marshall, [employer] provider. Ultrasound pelvic/transvaginal showing no intrauterine or extrauterine gestation identified. Plan was for her to be seen outpatient tomorrow at [facility] for follow-up and HCG quant. She reports she is concerned that she may be hemorrhaging. She also reports swelling and pain in her right upper extremity at the AC where blood was drawn. She states she feels a tearing sensation in the arm. She also reports vague swelling in bilateral lower extremities. She denies any fevers, chills, chest pain, shortness of breath, nausea, vomiting, diarrhea, constipation, headache, or vision changes. Related Data Home Medications Medication Instructions Recorded Confirmed lamotrigine 100 mg tablet 1 tab PO DAILY 07/01/21 09/15/21 Previous Rx's Medication Instructions Recorded hydroxyzine HCl 10 mg tablet 20 mg PO BEDTIME PRN for insomnia 08/22/20 #30 tabs jgeuayjcuc-kqayhaujekcap-jnzhheto 1 cap PO Q6H PRN pain 4 days #16 05/05/21 50 mg-325 mg-40 mg capsule caps ferrous sulfate 325 mg (65 mg 325 mg PO BID #60 tabs 07/01/21 iron) tablet (Iron (ferrous sulfate)) vitamin with calcium 1 tab PO DAILY #90 tabs 09/15/21 no.72-iron 27 mg-folic acid 1 mg tablet ( Vitamins Plus Low Iron) prenat.vits,lee,lzz-mdte-bzyej 1 tab PO DAILY #30 tabs 05/15/22 Allergies Allergy/AdvReac Type Severity Reaction Status Date / Time shellfish derived Allergy Mild ITCHING Verified 05/15/22 16:09 [SHELLFISH DERIVED] Review of Systems Review of Systems: Pertinent positives and negatives discussed HPI. [facility] Past Medical History Medical History Anemia H/O partial seizures Obesity (BMI 30.0-34.9) Surgical History Hx of section Hx of wisdom tooth extraction Family History Family History Mother History of mental problems Brother Hx of bipolar disorder Maternal Aunt History of breast cancer in female Paternal Grandmother Family hx-stroke Maternal Aunt Breast cancer Stomach cancer Social History Social History Household Members: Spouse and Children Housing: Apartment Are you a primary daycare teacher to a significant other at home: No Do you presently have visiting nurse or other home services: No Alcohol intake: current Alcohol intake frequency: holidays/special occasions only Patient Tobacco Use Status: Never used Tobacco e-Cigarette/Vaping Use: Never Used Second Hand Smoke Exposure: No Advance Directives: No Advance Directives Information Provided: Yes service: No 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al status: employed 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: Cognitive needs: No Hearing needs: No Vision needs: No Physical Exam Vital Signs: Vital Signs: Last Vital Signs Temp 96.8 F 05/17/22 15:29 Pulse 84 05/17/22 15:29 Resp 16 05/17/22 15:29 BP 136/81 05/17/22 15:29 Pulse Ox 100 05/17/22 15:29 O2 Del Method 05/17/22 15:29 BMI result Body Mass Index 37.3 Nursing notes and vital signs reviewed. GENERAL APPEARANCE: A&0 x 4, generally well appearing, no acute distress HENMT: Normal to inspection, atraumatic, face symmetrical. Normal external ears, nose, and oropharynx clear. EYE: PERRLA, EOM intact, structures appear normal NECK: Supple without lymphadenopathy. No stiffness or restricted ROM. CHEST: Normal to inspection HEART: Normal rate and regular rhythm, normal S1/S2, no M/R/G LUNGS: LS CTA, moving air well. Able to speak in complete sentences. No crackles, wheezes, or rhonchi auscultated ABDOMEN: Soft, nondistended. Normal bowel sounds noted. Tenderness in left lower quadrant BACK: No CVAT, no obvious deformity EXTREMITIES: Moving all extremities without difficulty. No cyanosis, clubbing, or edema. Normal capillary refill. NEUROLOGICAL: Alert and oriented, moving all 4 extremities with equal strength. CN not formally tested but appearing grossly intact. Observed to ambulate with normal gait. Cognition normal SKIN: Warm and dry without any lesions, rash, or visible sores PSYCH: Cooperative, normal affect, normal thought process Medical Decision Making Medical Decision Making MDM Narrative: 1600: Spoke with Dr. GIANNA nathan who discharge from this morning. Plan for repeat blood work to assess hematology. Plan to reach out to Dr Marshall for further recommendations. 1635: Hematology essentially unchanged with H/H 11.7/37 improved from 11.4/35.7. HCG quant pending. 1650: [employer] pelvic exam completed with waistband setter. No tenderness during exam, small amount of bleeding in the vaginal canal with no acute bleeding noted from cervical os. Quant 9 down from 15 this morning. 1700: Spoke with Dr Marshall, regarding diagnostic results. [employer] MD recommends continued observation for 1-2 hours to make sure patient does not begin heavy bleeding. HPI, PE, diagnostics, and plan discussed with patient with no unanswered questions at this time. Patient is stable to follow up outpatient tomorrow. If no increase in vaginal bleeding, patient is safe for discharge with plan to follow up with Dr Marshall tomorrow for further evaluation and treatment. Strict return precautions given to patient to return to the emergency department with new, worsening, or concerning emergent symptoms. Recommended to follow-up with there primary care provider in 24-48 hours for further treatment and management. 1800: Sign out given to Nathan CARTAGENA with PA updated with plan. No unanswered questions. Differential Diagnosis Symptoms consistent with acute miscarriage with low suspicion for uterine infection or hemorrhage. Lab Data 05/17/22 16:19 Labs: Lab Results 05/17/22 05/17/22 Range/Units 16:19 16:19 WBC 6.6 (4.8-10.8) X10*3/uL RBC 4.08 L (4.20-5.50) X10*6/uL Hgb 11.7 L (12.0-16.0) g/dl Hct 37.0 (37.0-47.0) % MCV 90.7 (80.0-98.0) fL MCH 28.7 (27.0-33.0) pg MCHC 31.6 (31.0-35.0) g/dl RDW 13.2 (11.0-16.0) % Plt Count 414 H (160-400) X10*3/uL MPV 9.3 L (9.4-12.3) fL Immature Gran % (Auto) 0.2 (0.0-0.4) % Neut % (Auto) 41.3 L (45-73) % Lymph % (Auto) 44.1 H (20-40) % Hamilton % (Auto) 10.5 (2-11) % Eos % (Auto) 3.3 (0-4) % Baso % (Auto) 0.6 (0-2) % Lymph # (Auto) 2.9 (1.2-4.9) X10*3/uL Hamilton # (Auto) 0.7 (0.1-1.2) X10*3/uL Eos # (Auto) 0.2 (0.0-0.4) X10*3/uL Baso # (Auto) 0.0 (0.0-0.2) X10*3/uL Abs Immat Gran (auto) 0.01 (0.00-0.03) X10*3/uL Absolute Neuts (auto) 2.7 (2.0-8.3) x10*3/uL Absolute Nucleated RBC 0.000 (0.0-0.012) X10*3/uL Nucleated RBC % (auto) 0.0 (0.0-0.2) /100WBC Beta HCG, Quant 9 mIU/mL Discharge Plan Discharge Clinical Impression: Miscarriage Patient Disposition: Home, Self-Care Instructions: Miscarriage (ED) Additional Instructions: Your seen in the emergency department for concerns of increased vaginal bleeding. Your blood work showed slight improvement. The HCG, which is a value that calculates has decreased from [address] Marshall, [employer] was contacted regarding your re-presentation to the emergency department. As long as bleeding does not increase, plan is for you to follow-up with him in clinic tomorrow. You are safe for discharge at this time with plan for management of fever or discomfort with niva-kkq-umiwzyo Tylenol and/or NSAID such as ibuprofen or naproxen with dosing as per packaging. Please return to the emergency department with new, worsening, or concerning emergent symptoms. Recommended to follow-up with your primary care provider in 24-48 hours for further treatment and management. Thank you for choosing [facility]. Prescriptions: No Action hydroxyzine HCl 10 mg tablet 20 mg PO BEDTIME PRN (Reason: for insomnia) Qty: 30 2RF lamotrigine 100 mg tablet 1 tab PO DAILY ferrous sulfate [Iron (ferrous sulfate)] 325 mg (65 mg iron) tablet 325 mg PO BID Qty: 60 3RF ubisusjkzu-qzdkfmwfrzobv-bbok 50-325-40 mg capsule 1 cap PO Q6H PRN (Reason: pain) 4 Days Qty: 16 0RF prenat.vits,lee,mzl-ysrf-tjcuo Tablet 1 tab PO DAILY Qty: 30 9RF Vitamin Plus Low Iron 27 mg iron- 1 mg tablet 1 tab PO DAILY Qty: 90 4RF Referrals: Justice Raygoza PA-C [Primary Care Provider] - Polo Marshall MD [Physician] - (Please call office for follow-up appointment tomorrow.) Stand Alone Forms: Work/School Release Print Language: Citizen [place]
[2022-05-17 16:24] LABS: MANUAL DIFF FLAG NO
[2022-05-17 16:31] LABS: Basophils Percent Auto 0.6 % (0-2); Eosinophils Absolute Auto 0.2 X10*3/uL (0.0-0.4); Eosinophils Percent Auto 3.3 % (0-4); Hemoglobin 11.7 g/dl (12.0-16.0); Imm Gran Abs Auto 0.01 X10*3/uL (0.00-0.03); Imm Gran Pct Auto 0.2 % (0.0-0.4); Lymphocytes Absolute Auto 2.9 X10*3/uL (1.2-4.9); Lymphocytes Percent Auto 44.1 % (20-40); Mean Corpuscular HGB Conc 31.6 g/dl (31.0-35.0); Mean Corpuscular Hemoglobin 28.7 pg (27.0-33.0); Mean Corpuscular Volume 90.7 fL (80.0-98.0); Mean Platelet Volume 9.3 fL (9.4-12.3); Monocytes Absolute Auto 0.7 X10*3/uL (0.1-1.2); Monocytes Percent Auto 10.5 % (2-11); Neutrophils Absolute Auto 2.7 x10*3/uL (2.0-8.3); Neutrophils Percent Auto 41.3 % (45-73); Platelet Count 414 X10*3/uL (160-400); Red Blood Count 4.08 X10*6/uL (4.20-5.50); Red Cell Distribution Width 13.2 % (11.0-16.0); White Blood Count 6.6 X10*3/uL (4.8-10.8)
[2022-05-17 16:50] LABS: HCG Quantitative 9 mIU/mL
== END 2022-05-17 18:14 | disposition home or self-care (01) ==
PROVIDERS: Nurse Practitioner Family; Emergency Provider Emergency Medicine Emergency Medical Services; PCP Physician Assistant
DX: O03.9 Complete or unspecified spontaneous abortion without complication (principal); Z79.899 Other long term (current) drug therapy
CPT/HCPCS: 36415; 84702; 85025; 99283

== ENCOUNTER 2022-05-18 11:10 | Outpatient (REF) | payer OTHER, SELFPAY | END 2022-05-18 11:11 | disposition home or self-care (01) | LOC: HO.LNP 11:10 | PROVIDERS: Visit Provider Obstetrics & Gynecology | DX: O03.9 Complete or unspecified spontaneous abortion without complication (principal) | CPT/HCPCS: 99212 ==

== ENCOUNTER 2022-05-18 11:16 | Outpatient (REF) | payer OTHER, SELFPAY ==
[2022-05-18 12:18] LABS: HCG Quantitative 4 mIU/mL
== END 2022-05-18 11:17 | disposition home or self-care (01) ==
LOC: HO.LAB 11:16
PROVIDERS: PCP Physician Assistant; Visit Provider Obstetrics & Gynecology
DX: Z34.90 Encounter for supervision of normal pregnancy, unspecified, unspecified trimester (principal)
CPT/HCPCS: 36415; 84702

== ENCOUNTER 2022-06-07 15:28 | Emergency (ER) | payer OTHER, SELFPAY ==
--- NOTE | ~2022-06-07 | US_ITS ---
EXAMINATION: ULTRASOUND OF THE PELVIS CLINICAL INFORMATION: Bilateral pelvic pain. Ovarian cysts. Question torsion. COMPARISON: Limited first trimester obstetrical ultrasound dated 05/17/2022. TECHNIQUE: Transabdominal and transvaginal pelvic ultrasound. A transvaginal study was performed in addition to the transabdominal study which did not yield an adequate examination of the uterus and ovaries due to superimposed distended gas-filled loops of bowel. FINDINGS: Uterus: The uterus is anteverted and normal in size and appearance, measuring 9.5 x 4.1 x 5.6 cm. The endometrial stripe is diffusely echogenic and thickness is at the upper limits of normal, measuring 1.6 cm in thickness. Findings are consistent with secretory phase appearance. No focal myometrial mass is seen. The cervical length is normal measuring approximately 3 cm. Ovaries: The ovaries bilaterally are visualized and appear normal, with the right ovary measuring 3.7 x 2.3 x 1.5 cm (6.7 mL volume) and the left ovary measuring 4 x 2.9 x 2.8 cm (17 mL volume). Spectral Doppler analysis of the arterial and venous flow is normal inboth ovaries. There is a 2 x 2.3 x 2.4 cm benign follicle in the left ovary. The previously demonstrated echogenic 0.5 cm mass in the right ovary is again seen, unchanged in size and appearance, for uncertain etiology, possibly a hemorrhagic cyst or a tiny dermoid cyst. Other: No adnexal mass or free fluid collection seen. US/US pelvic ovarian doppler IMPRESSION: 1. There is normal arterial and venous flow to both ovaries demonstrated. No evidence of ovarian torsion at this time. 2. Small echogenic 0.5 cm mass in right ovary, unchanged from previous exam, possibly a small hemorrhagic cyst or small dermoid cyst.
--- NOTE | ~2022-06-07 | US_ITS ---
EXAMINATION: ULTRASOUND OF THE PELVIS CLINICAL INFORMATION: Bilateral pelvic pain. Ovarian cysts. Question torsion. COMPARISON: Limited first trimester obstetrical ultrasound dated 05/17/2022. TECHNIQUE: Transabdominal and transvaginal pelvic ultrasound. A transvaginal study was performed in addition to the transabdominal study which did not yield an adequate examination of the uterus and ovaries due to superimposed distended gas-filled loops of bowel. FINDINGS: Uterus: The uterus is anteverted and normal in size and appearance, measuring 9.5 x 4.1 x 5.6 cm. The endometrial stripe is diffusely echogenic and thickness is at the upper limits of normal, measuring 1.6 cm in thickness. Findings are consistent with secretory phase appearance. No focal myometrial mass is seen. The cervical length is normal measuring approximately 3 cm. Ovaries: The ovaries bilaterally are visualized and appear normal, with the right ovary measuring 3.7 x 2.3 x 1.5 cm (6.7 mL volume) and the left ovary measuring 4 x 2.9 x 2.8 cm (17 mL volume). Spectral Doppler analysis of the arterial and venous flow is normal inboth ovaries. There is a 2 x 2.3 x 2.4 cm benign follicle in the left ovary. The previously demonstrated echogenic 0.5 cm mass in the right ovary is again seen, unchanged in size and appearance, for uncertain etiology, possibly a hemorrhagic cyst or a tiny dermoid cyst. Other: No adnexal mass or free fluid collection seen. US/US pelvic and transvaginal IMPRESSION: 1. There is normal arterial and venous flow to both ovaries demonstrated. No evidence of ovarian torsion at this time. 2. Small echogenic 0.5 cm mass in right ovary, unchanged from previous exam, possibly a small hemorrhagic cyst or small dermoid cyst.
[2022-06-07 16:10] VITALS: BP 130/83; PULSE 80; RESP 18; TEMP 37.2; O2SAT 100; BMI 38.3
[2022-06-07 17:04] LABS: MANUAL DIFF FLAG NO
[2022-06-07 17:13] LABS: Basophils Percent Auto 0.6 % (0-2); Eosinophils Absolute Auto 0.5 X10*3/uL (0.0-0.4); Eosinophils Percent Auto 6.8 % (0-4); Hematocrit 37.5 % (37.0-47.0); Imm Gran Pct Auto 1.5 % (0.0-0.4); Lymphocytes Absolute Auto 1.9 X10*3/uL (1.2-4.9); Lymphocytes Percent Auto 28.6 % (20-40); Mean Corpuscular Hemoglobin 28.8 pg (27.0-33.0); Mean Corpuscular Volume 90.1 fL (80.0-98.0); Mean Platelet Volume 9.3 fL (9.4-12.3); Monocytes Absolute Auto 0.7 X10*3/uL (0.1-1.2); Monocytes Percent Auto 10.8 % (2-11); Neutrophils Absolute Auto 3.4 x10*3/uL (2.0-8.3); Neutrophils Percent Auto 51.7 % (45-73); Platelet Count 389 X10*3/uL (160-400); Red Blood Count 4.16 X10*6/uL (4.20-5.50); Red Cell Distribution Width 13.1 % (11.0-16.0); White Blood Count 6.7 X10*3/uL (4.8-10.8)
[2022-06-07 17:27] LABS: Alanine Aminotransferase 18 U/L (0-31); Albumin Level 4.3 g/dL (3.5-5.0); Alkaline Phosphatase 117 U/L (39-117); Anion Gap 11 (12-20); Aspartate Amino Transferase 20 U/L (5-31); Bilirubin Total 0.4 mg/dL (0.0-1.0); Blood Urea Nitrogen 9 mg/dL (9-16); Calcium 9.5 mg/dL (8.4-10.2); Carbon Dioxide 26 mmol/L (22-29); Chloride 106 mmol/L (96-108); Creatinine Clr Calc Pharmacy 106.4; Estimated Glomerular Filt Rate > 60; Glucose Random 94 mg/dL (60-115); HCG Quantitative < 2 mIU/mL; Sodium 139 mmol/L (135-145); Total Protein 7.3 g/dL (6.5-8.0)
--- NOTE | 2022-06-07 18:42 | ED_ITS ---
HPI - Female Genitourinary General Chief complaint: Urogenital-Female Stated complaint: bilateral ovary pain Time Seen by Provider: 06/07/22 18:41 Source: patient, RN notes reviewed and old records reviewed Mode of arrival: ambulatory Limitations: no limitations History of Present Illness HPI Narrative: 27-year-old female presents for evaluation of lower abdominal pain. She reports a history ovarian cyst and feels that this is similar pain. Patient reports her pain has been present for the last 3 days. Pain is currently a 6/10 and comes and goes. Her last menstrual cycle was in April. She reports having had a miscarriage in the middle of April. She has OBGYN follow-up in August Patient denies any abnormal vaginal bleeding or discharge. Denies any new sexual partners pain Denies any urinary complaints Related Data Home Medications Medication Instructions Recorded Confirmed lamotrigine 100 mg tablet 1 tab PO DAILY 07/01/21 09/15/21 Previous Rx's Medication Instructions Recorded hydroxyzine HCl 10 mg tablet 20 mg PO BEDTIME PRN for insomnia 08/22/20 #30 tabs xoxpnmpowy-wslobbrbbmcny-qkvllkkg 1 cap PO Q6H PRN pain 4 days #16 05/05/21 50 mg-325 mg-40 mg capsule caps ferrous sulfate 325 mg (65 mg 325 mg PO BID #60 tabs 07/01/21 iron) tablet (Iron (ferrous sulfate)) vitamin with calcium 1 tab PO DAILY #90 tabs 09/15/21 no.72-iron 27 mg-folic acid 1 mg tablet ( Vitamins Plus Low Iron) prenat.vits,lee,czs-bmlv-eplhm 1 tab PO DAILY #30 tabs 05/15/22 Allergies Allergy/AdvReac Type Severity Reaction Status Date / Time shellfish derived Allergy Mild ITCHING Verified 06/07/22 16:10 [SHELLFISH DERIVED] Review of Systems Constitutional: Constitutional: Reports as per HPI, Denies chills, Denies fatigue, Denies fever(s) and Denies headache(s) ENT: Denies headache(s) Cardiovascular: Cardiovascular: Denies chest pain and Denies dyspnea Respiratory: Respiratory: Denies cough and Denies dyspnea Gastrointestinal: Gastrointestinal: Reports abdominal pain, Denies constipation and Denies vomiting Genitourinary: Genitourinary: Denies dysuria Neurologic: Denies headache(s) and Denies focal weakness Endocrine: Endocrine: Denies fatigue PMFSH Past Medical History Medical History Anemia H/O partial seizures Obesity (BMI 30.0-34.9) Surgical History Hx of section Hx of wisdom tooth extraction Family History Family History Mother History of mental problems Brother Hx of bipolar disorder Maternal Aunt History of breast cancer in female Paternal Grandmother Family hx-stroke Maternal Aunt Breast cancer Stomach cancer Social History Social History Household Members: Spouse and Children Housing: Apartment Are you a primary primary care physician to a significant other at home: No Do you presently have visiting nurse or other home services: No Alcohol intake: current Alcohol intake frequency: holidays/special occasions only Patient Tobacco Use Status: Never used Tobacco e-Cigarette/Vaping Use: Never Used Second Hand Smoke Exposure: No Advance Directives: No Advance Directives Information Provided: Yes service: No 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al status: employed 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: Cognitive needs: No Hearing needs: No Vision needs: No Physical Exam Vital Signs: Vital Signs: Last Vital Signs Temp 98.9 F 06/07/22 16:10 Pulse 80 06/07/22 16:10 Resp 18 06/07/22 16:10 BP 130/83 06/07/22 16:10 Pulse Ox 100 06/07/22 16:10 O2 Del Method Room Air 06/07/22 16:10 BMI result Body Mass Index 38.3 Const: General: healthy appearing, comfortable, no acute distress, alert and awake Nutritional Appearance: well nourished Orientation/consciousness: patient oriented x3 HEENT: Head: Yes normocephalic and Yes atraumatic Throat: Yes posterior oropharynx normal Eyes: Eyelids: Yes eyelids normal Conjunctivae: conjunctivae normal Sclerae: sclerae normal Corneas: corneas normal Pupils: Equal, round and reactive pupils present EOM: EOMs intact bilaterally Neck: Neck: Yes full ROM Resp: Effort & Inspection: normal respiratory effort, able to speak in complete sentences, no audible wheezes and not labored Auscultation: clear to auscultation bilaterally Cardio: Rate: regular rate Rhythm: regular rhythm GI: Inspection: No distended Palpation (GI): Soft to palpation, not firm, nontender, no guarding and not rigid Auscultation: normoactive bowel sounds Skin: General skin exam: no rashes or lesions noted and elasticity normal Neuro: General: patient oriented x3 Cranial nerves: Yes CN's II-XII intact bilaterally, Yes Equal, round and reactive pupils present and Yes Bilaterally intact EOM present Cognition (Neuro): normal cognition Medications Administered Discontinued Medications Generic Name Dose Route Start Last Admin Trade Name Freq PRN Reason Stop Dose Admin Ketorolac Tromethamine 30 mg 06/07/22 19:03 06/07/22 19:13 Ketorolac Tromethamine 30 Mg/Ml Vial IM 06/07/22 19:04 30 mg ONCE ONE Administration Medical Decision Making Medical Decision Making [facility] Narrative: 27-year-old female presents for evaluation of lower abdominal pain. She reports a history of ovarian cyst and this feels similar. Will get an ultrasound to evaluate for ovarian cyst and rule out torsion. UA does not show any evidence of infection. Patient denies any sexual partners, concern for STDs. Will treat her pain with Toradol IM. Patient's serum hCG has trended down to undetectable. Differential Diagnosis Ovarian cyst Abdominal pain UTI in on cystitis Ovarian torsion Ectopic Lab Data 06/07/22 16:52 06/07/22 16:52 Labs: Lab Results 06/07/22 06/07/22 06/07/22 Range/Units 16:52 16:52 19:16 WBC 6.7 (4.8-10.8) X10*3/uL RBC 4.16 L (4.20-5.50) X10*6/uL Hgb 12.0 (12.0-16.0) g/dl Hct 37.5 (37.0-47.0) % MCV 90.1 (80.0-98.0) fL MCH 28.8 (27.0-33.0) pg MCHC 32.0 (31.0-35.0) g/dl RDW 13.1 (11.0-16.0) % Plt Count 389 (160-400) X10*3/uL MPV 9.3 L (9.4-12.3) fL Immature Gran % (Auto) 1.5 H (0.0-0.4) % Neut % (Auto) 51.7 (45-73) % Lymph % (Auto) 28.6 (20-40) % [place] % (Auto) 10.8 (2-11) % Eos % (Auto) 6.8 H (0-4) % Baso % (Auto) 0.6 (0-2) % Lymph # (Auto) 1.9 (1.2-4.9) X10*3/uL [place] # (Auto) 0.7 (0.1-1.2) X10*3/uL Eos # (Auto) 0.5 H (0.0-0.4) X10*3/uL Baso # (Auto) 0.0 (0.0-0.2) X10*3/uL Abs Immat Gran (auto) 0.10 H (0.00-0.03) X10*3/uL Absolute Neuts (auto) 3.4 (2.0-8.3) x10*3/uL Absolute Nucleated RBC 0.000 (0.0-0.012) X10*3/uL Nucleated RBC % (auto) 0.0 (0.0-0.2) /100WBC Sodium 139 (135-145) mmol/L Potassium 4.0 (3.3-5.1) mmol/L Chloride 106 (96-108) mmol/L Carbon Dioxide 26 (22-29) mmol/L Anion Gap 11 L (12-20) BUN 9 (9-16) mg/dL Creatinine 0.77 (0.5-1.4) mg/dL Estim Creat Clear Calc 106.4 Estimated GFR > 60 Random Glucose 94 (60-115) mg/dL Calcium 9.5 (8.4-10.2) mg/dL Total Bilirubin 0.4 (0.0-1.0) mg/dL AST 20 (5-31) U/L ALT 18 (0-31) U/L Alkaline Phosphatase 117 (39-117) U/L Total Protein 7.3 (6.5-8.0) g/dL Albumin 4.3 (3.5-5.0) g/dL Beta HCG, Quant < 2 mIU/mL Urine Color Yellow Urine Appearance Clear Urine pH 6.0 (5.0-9.0) Ur Specific Malcolm <= 1.005 (1.005-1.025) Urine Protein Negative (Neg-Trace) mg/dL Urine Glucose (UA) Negative (Negative) mg/dL Urine Ketones Negative (Negative) mg/dL Urine Blood Negative (Negative) Urine Nitrite Negative (Negative) Ur Leukocyte Esterase Negative (Negative) Discharge Plan Discharge Clinical Impression: Pelvic pain Patient Disposition: Home, Self-Care Instructions: Ovarian Cyst (ED) Additional Instructions: Your blood work was reassuring. Your level was undetectable. Your ultrasound did show ovarian cyst larger on the right Use ibuprofen or naproxen or warm compresses for your discomfort Follow-up with your OBGYN Prescriptions: No Action hydroxyzine HCl 10 mg tablet 20 mg PO BEDTIME PRN (Reason: for insomnia) Qty: 30 2RF lamotrigine 100 mg tablet 1 tab PO DAILY ferrous sulfate [Iron (ferrous sulfate)] 325 mg (65 mg iron) tablet 325 mg PO BID Qty: 60 3RF pnqgiroxpy-xisaqoydvfhio-nphx 50-325-40 mg capsule 1 cap PO Q6H PRN (Reason: pain) 4 Days Qty: 16 0RF prenat.vits,lee,rod-krbw-njszw Tablet 1 tab PO DAILY Qty: 30 9RF Vitamin Plus Low Iron 27 mg iron- 1 mg tablet 1 tab PO DAILY Qty: 90 4RF
[2022-06-07] MEDS: Ketorolac Tromethamine 30 MG/ML VIAL IM (19:13)
[2022-06-07 19:27] LABS: Appearance Urine Clear; Color Urine Yellow; Glucose Urine UA Negative (Negative); Leukocyte Esterase Urine Negative (Negative); Nitrite Urine Negative (Negative); Specific Gravity - Urine <= 1.005 (1.005-1.025); Urine Blood Negative (Negative); Urine Ketones Negative (Negative); Urine Protein Negative (Neg-Trace)
== END 2022-06-07 20:23 | disposition home or self-care (01) ==
PROVIDERS: Physician Assistant; Emergency Provider Internal Medicine; PCP Physician Assistant
DX: R10.2 Pelvic and perineal pain (principal); Z79.899 Other long term (current) drug therapy
CPT/HCPCS: 36415; 76830; 76856; 80053; 81003; 84702; 85025; 93975; 96372; 99283; 99284; J1885

== ENCOUNTER 2022-07-01 09:21 | Outpatient (REF) | payer OTHER, SELFPAY ==
[2022-07-01 10:36] LABS: Mean Corpuscular HGB Conc 31.6 g/dl (31.0-35.0); Mean Corpuscular Hemoglobin 28.5 pg (27.0-33.0); Mean Corpuscular Volume 90.3 fL (80.0-98.0); Mean Platelet Volume 9.4 fL (9.4-12.3); Platelet Count 407 X10*3/uL (160-400); Red Blood Count 4.21 X10*6/uL (4.20-5.50); Red Cell Distribution Width 12.7 % (11.0-16.0); White Blood Count 5.8 X10*3/uL (4.8-10.8)
[2022-07-01 11:23] LABS: Alanine Aminotransferase 15 U/L (0-31); Albumin Level 3.9 g/dL (3.5-5.0); Alkaline Phosphatase 116 U/L (39-117); Anion Gap 10 (12-20); Aspartate Amino Transferase 17 U/L (5-31); Bilirubin Total 0.4 mg/dL (0.0-1.0); Blood Urea Nitrogen 4 mg/dL (9-16); Carbon Dioxide 29 mmol/L (22-29); Chloride 106 mmol/L (96-108); Estimated Glomerular Filt Rate > 60; Glucose Fasting 88 mg/dL (60-99); Iron 103 mcg/dL (30-160); Percent Iron Saturation 35 % (15-50); Potassium 4.4 mmol/L (3.3-5.1); Sodium 141 mmol/L (135-145); Total Iron Binding Capacity 292 mcg/dL (228-428); Total Protein 6.7 g/dL (6.5-8.0); Unsaturated Iron Binding 189 ug/dL
[2022-07-01 11:24] LABS: Microalbum/Creatinine Ratio Ur 4.9 ug/mg cr
== END 2022-07-01 09:22 | disposition home or self-care (01) ==
LOC: HO.LAB 09:21
PROVIDERS: PCP Physician Assistant; Visit Provider Physician Assistant
DX: M79.89 Other specified soft tissue disorders (principal); D50.9 Iron deficiency anemia, unspecified; E66.9 Obesity, unspecified
CPT/HCPCS: 36415; 80053; 82043; 83540; 85027

== ENCOUNTER 2022-07-13 15:50 | Emergency (ER) | payer OTHER, SELFPAY ==
--- NOTE | 2022-07-13 15:54 | ED_ITS ---
HPI - URI/Sore Throat General Chief Complaint: General Medical <Naye Greene NP - Last Filed: 07/13/22 15:56> Stated Complaint: flulike symptoms <Naye Greene NP - Last Filed: 07/13/22 15:56> Time Seen by Provider: 07/13/22 16:46 <Naye Greene NP - Last Filed: 07/13/22 15:56> Source: patient <OSIEL Mahoney - Last Filed: 07/13/22 18:29> Mode of arrival: ambulatory <OSIEL Mahoney Last Filed: 07/13/22 18:29> Limitations: no limitations <OSIEL Mahoney Last Filed: 07/13/22 18:29> History of Present Illness HPI Narrative: Patient is a 27 year old assigned female at with a history of MDD and EUGENE presenting to the emergency department today feeling generally unwell. Patient states that over the last 2-3 days she has felt nauseous and run down. Patient states that her son also has a cough. Patient denies any dizziness, lightheadedness, abdominal pain, vomiting, fever, chills, blurry vision, double vision, loss of vision, chest pain, difficulty breathing, shortness of breath, back pain, night sweats, pain with urination, increased urinary frequency, increased urinary urgency, blood in her urine or stool, syncope or a near syncopal episode, recent trauma or falls, bowel incontinence, bladder incontinence, bowel retention, bladder retention, or any other complaints at this time. <OSIEL Mahoney - Last Filed: 07/13/22 18:29> Onset (ago): day(s) <OSIEL Mahoney - Last Filed: 07/13/22 18:29> Context: sick contacts <OSIEL Mahoney Last Filed: 07/13/22 18:29> Treatments prior to arrival: none <OSIEL Mahoney Last Filed: 07/13/22 18:29> Related Data Home Medications: Home Medications Medication Instructions Recorded Confirmed lamotrigine 100 mg tablet 1 tab PO DAILY 07/01/21 07/01/22 Previous Rx's Medication Instructions Recorded prenat.vits,lee,obu-rruc-cpwrn 1 tab PO DAILY #30 tabs 05/15/22 kailntdugu-byrpafvefutne-fgqrqcjl 1 cap PO Q6H PRN pain 4 days #16 06/24/22 50 mg-325 mg-40 mg capsule caps hydroxyzine HCl 10 mg tablet 20 mg PO BEDTIME PRN for insomnia 06/24/22 #30 tabs miconazole nitrate 2 % vaginal 1 appful vaginal BEDTIME 7 days 07/01/22 cream (Miconazole-7) #45 grams ferrous sulfate 325 mg (65 mg 325 mg PO BID #60 tabs 07/02/22 iron) tablet (Iron (ferrous sulfate)) <Naye Greene NP - Last Filed: 07/13/22 15:56> Allergies/Adverse Reactions: Allergies Allergy/AdvReac Type Severity Reaction Status Date / Time shellfish derived Allergy Mild ITCHING Verified 07/13/22 15:58 [SHELLFISH DERIVED] <Naye Greene NP - Last Filed: 07/13/22 15:56> Review of Systems Constitutional: Constitutional: Reports no additional constitutional complaints, Denies chills, Denies fever(s) and Denies night sweats <OSIEL Mahoney Last Filed: 07/13/22 18:29> Eyes: Eyes: Reports no additional eye complaints, Denies blurry vision, Denies change in vision, Denies diplopia, Denies eye discharge, Denies loss of vision and Denies eye pain <OSIEL Mahoney Last Filed: 07/13/22 18:29> ENT: Denies dizziness <OSIEL Mahoney Last Filed: 07/13/22 18:29> Cardiovascular: Cardiovascular: Reports no additional cardiovascular complaints, Denies chest pain, Denies lightheadedness, Denies Loss of Consciousness and Denies dyspnea <OISEL Mahoney Last Filed: 07/13/22 18:29> Respiratory: Respiratory: Reports no additional respiratory complaints and Denies dyspnea <OSIEL Mahoney Last Filed: 07/13/22 18:29> Gastrointestinal: Gastrointestinal: Reports no additional gastrointestinal complaints, Denies abdominal pain, Denies melena, Denies hematochezia, Denies change in bowel habits, Denies change in stool character, Reports diarrhea and Reports nausea <OSIEL Mahoney Last Filed: 07/13/22 18:29> Genitourinary: Genitourinary: Denies hematuria, Denies urinary frequency, Denies dysuria, Denies urinary incontinence, Denies urinary hesitancy and Denies urinary urgency <OSIEL Mahoney - Last Filed: 07/13/22 18:29> Musculoskeletal: Musculoskeletal: Reports no additional musculoskeletal complaints, Denies numbness and Denies tingling <OSIEL Mahoney - Last Filed: 07/13/22 18:29> Neurologic: Denies dizziness, Denies loss of vision, Denies numbness and Denies tingling <OSIEL Mahoney - Last Filed: 07/13/22 18:29> Psychiatric: Psychiatric: Reports no additional psychiatric complaints <OSIEL Mahoney - Last Filed: 07/13/22 18:29> Endocrine: Endocrine: Reports no additional endocrine complaints <OSIEL Mahoney - Last Filed: 07/13/22 18:29> Hematologic/Lymphatic: Hematologic/Lymphatic: Reports no additional hematologic/lymphatic complaints <OSIEL Mahoney - Last Filed: 07/13/22 18:29> Allergic/Immunologic: Allergic/Immunologic: Reports no additional allergic/immunologic complaints <OSIEL Mahoney - Last Filed: 07/13/22 18:29> PMF Past Medical History Attestation statement: The following information was validated with the patient. <OSIEL Mahoney - Last Filed: 07/13/22 18:29> Source: old records reviewed and nursing notes reviewed <OSIEL Mahoney - Last Filed: 07/13/22 18:29> Medical History: Medical History Anemia H/O partial seizures Obesity (BMI 30.0-34.9) <Naye Greene NP - Last Filed: 07/13/22 15:56> Surgical History: Surgical History Hx of section Hx of wisdom tooth extraction <Naye Greene NP - Last Filed: 07/13/22 15:56> Family History Family History: Family History Mother History of mental problems Brother Hx of bipolar disorder Maternal Aunt History of breast cancer in female Paternal Grandmother Family hx-stroke Maternal Aunt Breast cancer Stomach cancer <Naye Greene NP - Last Filed: 07/13/22 15:56> Social History Social History: Social History Household Members: Spouse and Children Housing: Apartment Are you a primary healthcare facility administrator to a significant other at home: No Do you presently have visiting nurse or other home services: No Alcohol intake: current Alcohol intake frequency: holidays/special occasions only Patient Tobacco Use Status: Never used Tobacco e-Cigarette/Vaping Use: Never Used Second Hand Smoke Exposure: No Advance Directives: No Advance Directives Information Provided: Yes service: No 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al status: employed 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: [employer]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 Cognitive needs: No Hearing needs: No Vision needs: Yes (glasses) <Naye Greene NP - Last Filed: 07/13/22 15:56> Physical Exam Vital Signs: Vital Signs: Last Vital Signs Temp 96.9 F 07/13/22 15:59 Pulse 101 H 07/13/22 15:59 Resp 18 07/13/22 15:59 BP 128/72 07/13/22 15:59 Pulse Ox 94 07/13/22 15:59 O2 Del Method Room Air 07/13/22 15:59 BMI result Body Mass Index 38.6 <Naye Greene NP - Last Filed: 07/13/22 15:56> Vital Signs: Last Vital Signs Temp 96.9 F 07/13/22 15:59 Pulse 101 H 07/13/22 15:59 Resp 18 07/13/22 15:59 BP 128/72 07/13/22 15:59 Pulse Ox 94 07/13/22 15:59 O2 Del Method Room Air 07/13/22 15:59 BMI result Body Mass Index 38.6 <OSIEL Mahoney - Last Filed: 07/13/22 18:29> Const: General: cooperative, no acute distress, alert and awake <OSIEL Mahoney - Last Filed: 07/13/22 18:29> Nutritional Appearance: well nourished <Kimmy Ada [place] - Last Filed: 07/13/22 18:29> Orientation/consciousness: patient oriented x3 <Kimmy Ada [place] - Last Filed: 07/13/22 18:29> Limitations: no limitations <Kimmyzahida Gasparjay [place] - Last Filed: 07/13/22 18:29> HEENT: Head: Yes normal to inspection and Yes atraumatic <Kimmy Caballero [place] - Last Filed: 07/13/22 18:29> Ears: hearing grossly normal bilaterally and external ears normal <Kimmyzahida Gasparjay [place] - Last Filed: 07/13/22 18:29> General nose exam: Normal external nose present, no nasal discharge noted and no epistaxis <Kimmy Caballero [place] - Last Filed: 07/13/22 18:29> Face and sinus: Yes normal facial exam, No abrasion and No laceration <Kimmy Caballero [place] - Last Filed: 07/13/22 18:29> Mouth: Normal oral and palatal mucosa present, no drooling and no muffled voice <Kimmy Caballero [place] - Last Filed: 07/13/22 18:29> Eyes: General: appearance normal, both eyes and all related structures <Kimmy Caballero [place] - Last Filed: 07/13/22 18:29> Periorbital: periorbital findings normal <Kimmy Caballero [place] - Last Filed: 07/13/22 18:29> Eyelids: Yes eyelids normal <Kimmy Caballero [place] - Last Filed: 07/13/22 18:29> Conjunctivae: conjunctivae normal <Kimmy Caballero [place] - Last Filed: 07/13/22 18:29> Pupils: Equal, round and reactive pupils present <Kimmy Caballero [place] - Last Filed: 07/13/22 18:29> EOM: EOMs intact bilaterally <Kimmy Caballero [place] - Last Filed: 07/13/22 18:29> Neck: Neck: Yes normal visual inspection, Yes full ROM and Yes no lymphadenopathy <OSIEL Mahoney - Last Filed: 07/13/22 18:29> Chest: Chest palpation & inspection: normal inspection of the chest <OSIEL Mahoney - Last Filed: 07/13/22 18:29> Resp: Effort & Inspection: normal respiratory effort and able to speak in complete sentences <OSIEL Mahoney - Last Filed: 07/13/22 18:29> GI: Inspection: Yes normal to inspection <OSIEL Mahoney - Last Filed: 07/13/22 18:29> Neuro: General: patient oriented x3 and moves all extremities <OSIEL Narvaez - Last Filed: 07/13/22 18:29> Cranial nerves: Yes Equal, round and reactive pupils present <OSIEL Mahoney - Last Filed: 07/13/22 18:29> Cognition (Neuro): normal cognition <OSIEL Mahoney - Last Filed: 07/13/22 18:29> Motor exam (neuro): 5/5 motor strength present throughout <OSIEL Mahoney - Last Filed: 07/13/22 18:29> Sensory Exam: Normal double simultaneous stimulation for sensation <OSIEL Mahoney - Last Filed: 07/13/22 18:29> Coordination: thdkhd-tt-[id number] test normal <OSILE Mahoney - Last Filed: 07/13/22 18:29> Extrem: General: Yes normal to inspection, Yes full ROM and Yes capillary refill normal <OSIEL Mahoney - Last Filed: 07/13/22 18:29> Psych: Appearance: grossly normal <OSIEL Mahoney - Last Filed: 07/13/22 18:29> Mental Status: mental status grossly normal <OSIEL Mahoney - Last Filed: 07/13/22 18:29> Affect: normal affect <OSIEL Mahoney - Last Filed: 07/13/22 18:29> Attitude: cooperative <OSIEL Mahoney - Last Filed: 07/13/22 18:29> Thought process: Normal thought process present <OSIEL Mahoney - Last Filed: 07/13/22 18:29> Thought content: Normal thought content present <OSIEL Mahoney - Last Filed: 07/13/22 18:29> Insight: Good insight present (Psych) <OSIEL Mahoney - Last Filed: 07/13/22 18:29> Course Course Course Narrative: This is a rapid medical exam. Defer additional HPI, ROS, PE to primary provider 27 yo female healthy here with abdominal cramping, diarrhea, fatigue, nausea x 2-3 days. Here with son who has upper respiratory symptoms Will obtain labs, UA, ur preg, RSV/flu/covid test. VSS <Naye Greene NP - Last Filed: 07/13/22 15:56> Medical Decision Making Medical Decision Making [facility] Narrative: Patient is a 27 year old assigned female at with a history of MDD and EUGENE presenting to the emergency department today feeling generally unwell. Patient's physical exam was unremarkable. Patient's blood work showed an HCG of 99. I explained my physical exam findings as well as all test results to the patient. I answered all questions asked by the patient. I stressed the importance of the patient taking her medication as prescribed. I stressed the importance of the patient following up with her primary care provider and an OBGYN. I stressed the importance of the patient returning to the emergency department immediately if her symptoms were to worsen or if she were to develop any dizziness, shortness of breath, difficulty breathing, chest pain, blurry vision, loss of vision, nausea, vomiting, abdominal pain, fever, chills, back pain, or any other complaints. Patient verbalized agreement and understanding with this treatment plan and discharge. <OSIEL Mahoney - Last Filed: 07/13/22 18:29> Differential Diagnosis Differential Diagnoses: The differential diagnosis associated with the presentation includes <OSIEL Gomez - Last Filed: 07/13/22 18:29> viral illness, first trimester <OSIEL Mahoney - Last Filed: 07/13/22 18:29> Lab Data [facility] Lab Attestation statement: I reviewed the patient's lab results. <OSIEL Mahoney - Last Filed: 07/13/22 18:29> Result Diagrams: 07/13/22 16:24 07/13/22 16:24 <Naye Greene NP - Last Filed: 07/13/22 15:56> Labs: Lab Results 07/13/22 07/13/22 07/13/22 Range/Units 16:24 16:24 16:24 WBC 7.5 (4.8-10.8) X10*3/uL RBC 4.18 L (4.20-5.50) X10*6/uL Hgb 11.9 L (12.0-16.0) g/dl Hct 38.0 (37.0-47.0) % MCV 90.9 (80.0-98.0) fL MCH 28.5 (27.0-33.0) pg MCHC 31.3 (31.0-35.0) g/dl RDW 13.2 (11.0-16.0) % Plt Count 403 H (160-400) X10*3/uL MPV 9.7 (9.4-12.3) fL Immature Gran % (Auto) 0.1 (0.0-0.4) % Neut % (Auto) 37.9 L (45-73) % Lymph % (Auto) 50.5 H (20-40) % Mobile % (Auto) 8.0 (2-11) % Eos % (Auto) 2.8 (0-4) % Baso % (Auto) 0.7 (0-2) % Lymph # (Auto) 3.8 (1.2-4.9) X10*3/uL Mobile # (Auto) 0.6 (0.1-1.2) X10*3/uL Eos # (Auto) 0.2 (0.0-0.4) X10*3/uL Baso # (Auto) 0.1 (0.0-0.2) X10*3/uL Abs Immat Gran (auto) 0.01 (0.00-0.03) X10*3/uL Absolute Neuts (auto) 2.9 (2.0-8.3) x10*3/uL Absolute Nucleated RBC 0.000 (0.0-0.012) X10*3/uL Nucleated RBC % (auto) 0.0 (0.0-0.2) /100WBC Sodium 140 (135-145) mmol/L Potassium 4.2 (3.3-5.1) mmol/L Chloride 107 (96-108) mmol/L Carbon Dioxide 25 (22-29) mmol/L Anion Gap 12 (12-20) BUN 6 L (9-16) mg/dL Creatinine 0.81 (0.5-1.4) mg/dL Estim Creat Clear Calc 101.6 Estimated GFR > 60 Random Glucose 93 (60-115) mg/dL Calcium 9.5 (8.4-10.2) mg/dL Total Bilirubin 0.5 (0.0-1.0) mg/dL Direct Bilirubin 0.1 (0.0-0.5) mg/dL AST 20 (5-31) U/L ALT 20 (0-31) U/L Alkaline Phosphatase 117 (39-117) U/L Total Protein 7.4 (6.5-8.0) g/dL Albumin 4.4 (3.5-5.0) g/dL Lipase 23 (8-78) U/L Beta HCG, Quant 99 mIU/mL Influenza Type A (PCR) NEGATIVE (Negative) Influenza Type B (PCR) NEGATIVE (Negative) RSV RNA Qual (PCR) NEGATIVE (Negative) SARS-CoV-2 RNA (RT-PCR) NEGATIVE (Negative) <Naye Greene, TIE BUCKER - Last Filed: 07/13/22 15:56> Lab Results 07/13/22 07/13/22 07/13/22 Range/Units 16:24 16:24 16:24 WBC 7.5 (4.8-10.8) X10*3/uL RBC 4.18 L (4.20-5.50) X10*6/uL Hgb 11.9 L (12.0-16.0) g/dl Hct 38.0 (37.0-47.0) % MCV 90.9 (80.0-98.0) fL MCH 28.5 (27.0-33.0) pg MCHC 31.3 (31.0-35.0) g/dl RDW 13.2 (11.0-16.0) % Plt Count 403 H (160-400) X10*3/uL MPV 9.7 (9.4-12.3) fL Immature Gran % (Auto) 0.1 (0.0-0.4) % Neut % (Auto) 37.9 L (45-73) % Lymph % (Auto) 50.5 H (20-40) % Mobile % (Auto) 8.0 (2-11) % Eos % (Auto) 2.8 (0-4) % Baso % (Auto) 0.7 (0-2) % Lymph # (Auto) 3.8 (1.2-4.9) X10*3/uL Mobile # (Auto) 0.6 (0.1-1.2) X10*3/uL Eos # (Auto) 0.2 (0.0-0.4) X10*3/uL Baso # (Auto) 0.1 (0.0-0.2) X10*3/uL Abs Immat Gran (auto) 0.01 (0.00-0.03) X10*3/uL Absolute Neuts (auto) 2.9 (2.0-8.3) x10*3/uL Absolute Nucleated RBC 0.000 (0.0-0.012) X10*3/uL Nucleated RBC % (auto) 0.0 (0.0-0.2) /100WBC Sodium 140 (135-145) mmol/L Potassium 4.2 (3.3-5.1) mmol/L Chloride 107 (96-108) mmol/L Carbon Dioxide 25 (22-29) mmol/L Anion Gap 12 (12-20) BUN 6 L (9-16) mg/dL Creatinine 0.81 (0.5-1.4) mg/dL Estim Creat Clear Calc 101.6 Estimated GFR > 60 Random Glucose 93 (60-115) mg/dL Calcium 9.5 (8.4-10.2) mg/dL Total Bilirubin 0.5 (0.0-1.0) mg/dL Direct Bilirubin 0.1 (0.0-0.5) mg/dL AST 20 (5-31) U/L ALT 20 (0-31) U/L Alkaline Phosphatase 117 (39-117) U/L Total Protein 7.4 (6.5-8.0) g/dL Albumin 4.4 (3.5-5.0) g/dL Lipase 23 (8-78) U/L Beta HCG, Quant 99 mIU/mL Influenza Type A (PCR) NEGATIVE (Negative) Influenza Type B (PCR) NEGATIVE (Negative) RSV RNA Qual (PCR) NEGATIVE (Negative) SARS-CoV-2 RNA (RT-PCR) NEGATIVE (Negative) <OSIEL Mahoney - Last Filed: 07/13/22 18:29> Discharge Plan Discharge Clinical Impression: Upper respiratory infection, <Naye Pascucci, TIE BUCKER - Last Filed: 07/13/22 15:56> Patient Disposition: Home, Self-Care <Naye Greene NP - Last Filed: 07/13/22 15:56> Instructions: Upper Respiratory Infection (DC) <Naye Greene NP - Last Filed: 07/13/22 15:56> Additional Instructions: Follow up with your primary care provider. Return to the emergency department immediately if your symptoms worsen or if you develop any dizziness, shortness of breath, difficulty breathing, chest pain, blurry vision, loss of vision, nausea, vomiting, abdominal pain, fever, chills, back pain, or any other complaints. <Naye Greene NP - Last Filed: 07/13/22 15:56> Prescriptions: No Action miconazole nitrate [Miconazole-7] 2 % cream 1 appful vaginal BEDTIME 7 Days Qty: 45 0RF lamotrigine 100 mg tablet 1 tab PO DAILY ferrous sulfate [Iron (ferrous sulfate)] 325 mg (65 mg iron) tablet 325 mg PO BID Qty: 60 3RF prenat.vits,lee,hgp-edtd-piqzq Tablet 1 tab PO DAILY Qty: 30 9RF hydroxyzine HCl 10 mg tablet 20 mg PO BEDTIME PRN (Reason: for insomnia) Qty: 30 2RF jnccmdvwri-lgxkdpdohdhgi-zyob 50-325-40 mg capsule 1 cap PO Q6H PRN (Reason: pain) 4 Days Qty: 16 0RF <Naye Greene NP - Last Filed: 07/13/22 15:56> Referrals: Justice Raygoza PA-C [Primary Care Provider] - Polo Marshall MD [Physician] - (Call to establish and follow up with an OBGYN. ) <Naye Greene NP - Last Filed: 07/13/22 15:56> Print Language: Indonesian <Naye Greene NP - Last Filed: 07/13/22 15:56>
[2022-07-13 15:59] VITALS: BP 128/72; PULSE 101; RESP 18; TEMP 36.1; O2SAT 94; BMI 38.6
[2022-07-13 16:29] LABS: MANUAL DIFF FLAG NO
[2022-07-13 16:33] LABS: Basophils Absolute Auto 0.1 X10*3/uL (0.0-0.2); Basophils Percent Auto 0.7 % (0-2); Eosinophils Absolute Auto 0.2 X10*3/uL (0.0-0.4); Eosinophils Percent Auto 2.8 % (0-4); Hemoglobin 11.9 g/dl (12.0-16.0); Imm Gran Abs Auto 0.01 X10*3/uL (0.00-0.03); Imm Gran Pct Auto 0.1 % (0.0-0.4); Lymphocytes Absolute Auto 3.8 X10*3/uL (1.2-4.9); Lymphocytes Percent Auto 50.5 % (20-40); Mean Corpuscular HGB Conc 31.3 g/dl (31.0-35.0); Mean Corpuscular Hemoglobin 28.5 pg (27.0-33.0); Mean Corpuscular Volume 90.9 fL (80.0-98.0); Mean Platelet Volume 9.7 fL (9.4-12.3); Monocytes Absolute Auto 0.6 X10*3/uL (0.1-1.2); Neutrophils Absolute Auto 2.9 x10*3/uL (2.0-8.3); Neutrophils Percent Auto 37.9 % (45-73); Platelet Count 403 X10*3/uL (160-400); Red Blood Count 4.18 X10*6/uL (4.20-5.50); Red Cell Distribution Width 13.2 % (11.0-16.0); White Blood Count 7.5 X10*3/uL (4.8-10.8)
[2022-07-13 17:06] LABS: Alanine Aminotransferase 20 U/L (0-31); Albumin Level 4.4 g/dL (3.5-5.0); Alkaline Phosphatase 117 U/L (39-117); Anion Gap 12 (12-20); Aspartate Amino Transferase 20 U/L (5-31); Bilirubin Direct 0.1 mg/dL (0.0-0.5); Bilirubin Total 0.5 mg/dL (0.0-1.0); Blood Urea Nitrogen 6 mg/dL (9-16); Calcium 9.5 mg/dL (8.4-10.2); Carbon Dioxide 25 mmol/L (22-29); Chloride 107 mmol/L (96-108); Creatinine Clr Calc Pharmacy 101.6; Estimated Glomerular Filt Rate > 60; Glucose Random 93 mg/dL (60-115); Lipase 23 U/L (8-78); Potassium 4.2 mmol/L (3.3-5.1); Sodium 140 mmol/L (135-145); Total Protein 7.4 g/dL (6.5-8.0)
[2022-07-13 17:11] LABS: Influenza A PCR NEGATIVE (Negative); Influenza B PCR NEGATIVE (Negative); Resp Syncy Virus RNA Qual PCR NEGATIVE (Negative); SARS COV2 PCR INHOUSE NEGATIVE (Negative)
[2022-07-13 18:18] LABS: HCG Quantitative 99 mIU/mL
== END 2022-07-13 18:33 | disposition home or self-care (01) ==
PROVIDERS: Nurse Practitioner Family; Physician Assistant Medical; Emergency Provider Emergency Medicine; PCP Physician Assistant
DX: O99.519 Diseases of the respiratory system complicating pregnancy, unspecified trimester (principal); Z20.822 Contact with and (suspected) exposure to COVID-19; Z20.828 Contact with and (suspected) exposure to other viral communicable diseases; Z79.899 Other long term (current) drug therapy; Z3A.00 Weeks of gestation of pregnancy not specified
CPT/HCPCS: 0241U; 80048; 80076; 83690; 84702; 85025; 99282; 99283

== ENCOUNTER 2022-07-15 14:03 | Outpatient (REF) | payer OTHER, SELFPAY ==
[2022-07-15 16:53] LABS: HCG Quantitative 295 mIU/mL
== END 2022-07-15 14:04 | disposition home or self-care (01) ==
LOC: HO.LAB 14:03
PROVIDERS: PCP Physician Assistant; Visit Provider Advanced Practice Midwife
DX: N92.6 Irregular menstruation, unspecified (principal)
CPT/HCPCS: 36415; 84702

== ENCOUNTER 2022-07-17 07:05 | Outpatient (REF) | payer OTHER, SELFPAY ==
[2022-07-17 08:53] LABS: HCG Quantitative 788 mIU/mL
[2022-07-18 09:22] LABS: CT PCR NOT DETECTED (Not Detect.); NG PCR NOT DETECTED (Not Detect.)
[2022-07-18 12:08] LABS: BV Int Neg Control Negative (Negative); BV Int Pos Control Positive (Positive)
== END 2022-07-17 07:06 | disposition home or self-care (01) ==
LOC: HO.LAB 07:05
PROVIDERS: PCP Physician Assistant; Visit Provider Advanced Practice Midwife
DX: O20.0 Threatened abortion (principal)
CPT/HCPCS: 0353U; 36415; 84702; 87480; 87510; 87660; 99212

== ENCOUNTER 2022-07-17 13:46 | Outpatient (REF) | payer OTHER, SELFPAY | END 2022-07-17 13:47 | disposition home or self-care (01) | LOC: HO.LNP 13:46 | PROVIDERS: Visit Provider Advanced Practice Midwife | DX: Z13.89 Encounter for screening for other disorder (principal) ==

== ENCOUNTER 2022-07-20 12:29 | Outpatient (REF) | payer OTHER, SELFPAY ==
--- NOTE | ~2022-07-20 | US_ITS ---
EXAMINATION: US OBSTETRICAL ULTRASOUND CLINICAL INFORMATION: Positive . Irregular menstruation. COMPARISON: Previous OB ultrasound 05/17/2022 LMP: 06/17/2022. Gestational age by maternal dates is 4 weeks 5 days. Estimated date of delivery by maternal dates is 03/24/2023. TECHNIQUE: Transabdominal and transvaginal pelvic ultrasound was performed. Transvaginal exam was performed for better visualization of the uterus and ovaries. FINDINGS: There is a cyst seen in the endometrium. This has a bright echogenic wall and is suggestive of a gestational sac. Mean sac diameter measures 0.51 cm which would suggest gestational age 5 weeks 0 day. No pole or yolk sac seen. The right ovary is normal-appearing and measures 3.2 x 1.6 x 1.8 cm. The left ovary measures 2.7 x 2.5 x 3.1 cm. There is a 1.8 x 1.4 x 1.8 cm complex left ovarian cyst with thick wall probably representing a corpus luteum. There is no fluid in the pelvis. US/US OB pelvic and transvaginal IMPRESSION: Intrauterine gestational sac. No pole or yolk sac seen. Mean sac diameter suggests stational age of 5 weeks 0 days.
[2022-07-20 13:15] LABS: HCG Quantitative 3615 mIU/mL
== END 2022-07-20 12:30 | disposition home or self-care (01) ==
LOC: HO.US 12:29
PROVIDERS: PCP Physician Assistant; Visit Provider Advanced Practice Midwife
DX: O26.891 Other specified pregnancy related conditions, first trimester (principal); R10.2 Pelvic and perineal pain; Z3A.01 Less than 8 weeks gestation of pregnancy
CPT/HCPCS: 36415; 76801; 76817; 84702; 99212

== ENCOUNTER 2022-07-22 07:51 | Outpatient (REF) | payer OTHER, SELFPAY ==
--- NOTE | ~2022-07-22 | US_ITS ---
EXAMINATION: US OBSTETRICAL ULTRASOUND CLINICAL INFORMATION: Rule out left ectopic . Left-sided pain and early . COMPARISON: Previous exam 07/20/2022 LMP: 06/17/2022. Gestational age by maternal dates is 5 weeks 0 days. Estimated date of delivery by maternal dates is 03/24/2023. TECHNIQUE: Transabdominal and transvaginal OB ultrasound. Transvaginal exam was performed for better visualization of the gestational sac. FINDINGS: The uterus measures 10.7 x 4.9 x 0.3 cm in dimension. There is an intrauterine gestational sac and yolk sac. Mean sac diameter measures 0.67 cm which would suggest gestational age of 5 weeks 2 days. No pole seen. The right ovary is normal and measures 3 x 1.5 x 1.3 cm. The left ovary measures 3 x 2.3 x 2.5 cm. There is a 1.5 x 2 cm complex left ovarian cyst probably representing a corpus luteum. There is no fluid in the pelvis. US/US OB pelvic and transvaginal IMPRESSION: Intrauterine gestational sac and yolk sac. Mean sac diameter suggests gestational age 5 weeks 2 days.
[2022-07-22 08:40] LABS: HCG Quantitative 5800 mIU/mL
== END 2022-07-22 07:52 | disposition home or self-care (01) ==
LOC: HO.US 07:51
PROVIDERS: PCP Physician Assistant; Visit Provider Advanced Practice Midwife
DX: O20.0 Threatened abortion (principal)
CPT/HCPCS: 36415; 76801; 76817; 84702

== ENCOUNTER 2022-08-06 13:23 | Outpatient (REF) | payer OTHER, SELFPAY ==
--- NOTE | ~2022-08-06 | US_ITS ---
EXAMINATION: ULTRASOUND LEFT AXILLA CLINICAL INFORMATION: Hidradenitis suppurativa. COMPARISON: None available. TECHNIQUE: High-frequency linear ultrasound transducer was used to examine the area of clinical concern in the left axilla. FINDINGS: A small subcutaneous probable lymph node seen measuring 9 x 4 x 3 mm. This appears to have a fatty elfego. No other abnormal mass or fluid collection is seen. No abscess is seen. Vascular structures in the left axilla appear normal. US/US extremity nonvascular donald IMPRESSION: Small benign-appearing lymph node in the left axilla. No abscess is seen.
== END 2022-08-06 13:24 | disposition home or self-care (01) ==
LOC: HO.US 13:23
PROVIDERS: PCP Physician Assistant; Visit Provider Physician Assistant
DX: L73.2 Hidradenitis suppurativa (principal)
CPT/HCPCS: 76882

== ENCOUNTER 2022-08-07 11:06 | Outpatient (REF) | payer OTHER, SELFPAY ==
--- NOTE | ~2022-08-07 | US_ITS ---
EXAMINATION: US OBSTETRICAL ULTRASOUND CLINICAL INFORMATION: Check viability COMPARISON: Previous exams most recent 07/22/2022 LMP: 06/17/2022. Gestational age by maternal dates is 7 weeks 2 days. Estimated date of delivery by maternal dates is 03/24/2022. TECHNIQUE: Transabdominal first trimester OB ultrasound FINDINGS: There is a single intrauterine gestational sac with visible yolk sac, embryo/fetus, and cardiac activity. There is no significant subchorionic hemorrhage or hematoma. HR: 153 beats per minute. CRL (crown rump length): 0.88 cm (7 weeks 0 days +/- 4 days). KELVIN (estimated date of delivery): 03/26/2022 +/- 4 days. MATERNAL ADNEXA: The right maternal ovary measures 1.8 x 2.1 x 1.6 cm. The left maternal ovary measures 2.9 x 2.3 x 2 cm. There is a 2.2 x 1.6 1.6 cm complex left ovarian cyst probably representing a corpus luteum. There is no significant maternal adnexal mass. No maternal pelvic ascites. There is a hypoechoic area in the anterior body of the uterus questionable fibroid versus scar. This area measures 4.6 x 2.8 x 2.8 cm. In retrospect, similar finding is seen on previous recent exams. US/US OB <= 14 weeks fetus IMPRESSION: 1. Single intrauterine gestation with ultrasound gestational age of 7 weeks 0 days +/- 4 days. 2. Estimated date of delivery is 03/26/2022 +/- 4 days. 3. No maternal adnexal mass or pelvic ascites. Hypoechoic area in the anterior body of the uterus questionable for a fibroid versus scar. This area measures 4.6 x 2.8 x 2.8 cm and in retrospect can be seen on previous recent exams.
== END 2022-08-07 11:07 | disposition home or self-care (01) ==
LOC: HO.US 11:06
PROVIDERS: PCP Physician Assistant; Visit Provider Advanced Practice Midwife
DX: Z34.90 Encounter for supervision of normal pregnancy, unspecified, unspecified trimester (principal)
CPT/HCPCS: 76801

== ENCOUNTER 2023-04-15 14:54 | Outpatient (AMB) | payer OTHER, SELFPAY ==
[2023-04-15 14:55] VITALS: BP 120/76; PULSE 83; O2SAT 99; BMI 34.7
--- NOTE | 2023-04-15 14:55 | MHC.PC.OV ---
Vital Signs 04/15/23 14:55 Height 4 ft 11 in Weight 172 lb BMI 34.7 BP 120/76 Blood Pressure Location Lt brachial Position Sitting Pulse 83 Pulse Source Pulse Oximeter Pulse Oximetry (%) 99 Oxygen Delivery Method Room Air Intake Visit Reasons: [facility] High BP Intake Note: Patient is here to follow-up after a visit the emergency department at [facility] for high BP Veterinarian Poultry Required: No Allergies shellfish derived [SHELLFISH DERIVED] Allergy (Mild, Verified 04/15/23 14:56) ITCHING Medication List - Last Reconciled 04/15/23 by Justice Raygoza PA-C buspirone 10 mg PO BID 30 days ferrous sulfate (Iron (ferrous sulfate)) 325 mg PO BID hydroxyzine HCl 20 mg (2 x 10 mg) PO BEDTIME PRN labetalol 400 mg PO BID lamotrigine 1 tab PO DAILY lorazepam 0.5 mg PO DAILY PRN 7 days nifedipine ER 60 mg PO DAILY PNV [id number] 400 mcg-35 mg- 25 mg-5 mg ( Gummies) 1 tab PO DAILY 90 days pyridoxine (vitamin B6) (Vitamin B-6) 25 mg PO TID PRN Tobacco use date assessed: 04/15/23 Dental Screening Dental Screen Date: 04/15/23 HPI [facility] High BP HPI Details Patient is a 28-year-old female here today for a visit. Recently gave to a baby boy in April of 2023. She unfortunately has gestational hypertension and has been being treated with beta-panfilo and calcium channel panfilo to reduce her blood pressures which have been effective. She now sneak PCP to manage her blood pressure. She also does report suffering with anxiety and is interested in some treatment for her anxiety. [facility] Medical History Excessive thirst H/O partial seizures Anemia Obesity (BMI 30.0-34.9) Surgical History Hx of wisdom tooth extraction Hx of section Family History Mother History of mental problems Brother Hx of bipolar disorder Maternal Aunt History of breast cancer in female Paternal Grandmother Family hx-stroke Maternal Aunt Breast cancer Stomach cancer Social History Household Members: Spouse and Children Housing: Apartment Are you a primary skin care therapist to a significant other at home: No Do you presently have visiting nurse or other home services: No Alcohol intake: current Alcohol intake frequency: holidays/special occasions only Patient Tobacco Use Status: Never used Tobacco e-Cigarette/Vaping Use: Never Used Second Hand Smoke Exposure: No service: No 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al status: employed 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: [employer] Cognitive needs: No Hearing needs: No Vision needs: Yes (glasses) Female Reproductive History Menstrual Age of Menarche: 15 Questionnaire Thrive Questionnaire Date Thrive assessed: 06/24/22 AUDIT C Alcohol Use Questionnaire (AUDIT-C) 1. How often do you have a drink containing alcohol?: Monthly or less 2. How many drinks containing alcohol do you have on a typical day when you are drinking?: 1 or 2 Total Score: 1 EUGENE-7 AMB Questionnaire EUGENE-7 Date EUGENE - 7 assessed: 04/15/23 Feeling nervous, anxious, or on edge: 3 = Nearly every day Not being able to stop or control worryin = More than half the days Worrying too much about different things: 3 = Nearly every day Trouble relaxin = More than half the days Being so restless that it is hard to sit still: 2 = More than half the days Becoming easily annoyed or irritable: 2 = More than half the days Feeling afraid as if something awful might happen: 1 = Several days Total EUGENE-7 score (0-4 normal; 5-9 mild; 10-14 moderate; 15-21 severe): 15 Source: Developed by Drs. Dangelo Artis, Dede Villegas, Austen Paris and colleagues, with an educational ryann from [employer]. EUGENE-7 Assessment Billing EUGENE-7 Assessment Tool: EUGENE-7 Assessment 54022 Review of Systems Const Denies headache(s) Eyes Denies loss of vision ENT Denies vertigo, Denies dizziness, Denies headache(s) and Denies sore throat Card Denies chest pain, Denies leg edema and Denies lightheadedness Resp Denies cough, Denies hemoptysis and Denies wheezing GI Denies abdominal pain, Denies melena, Denies constipation, Denies diarrhea and Denies vomiting Denies urinary frequency, Denies dysuria and Denies urinary urgency Musc Denies arthralgias, Denies joint swelling, Denies numbness and Denies tingling Neuro Denies Abnormal speech present, Denies behavioral changes, Denies vertigo, Denies dizziness, Denies headache(s), Denies loss of vision, Denies memory loss, Denies numbness and Denies tingling Psych Denies anxiety, Denies behavioral changes, Denies depression, Denies memory loss and Denies panic attacks Albert/Lymph Denies easy bleeding and Denies easy bruising Aller/Immun Denies wheezing Physical exam (Primary Care) Vital Signs: Last Vital Signs Pulse 83 04/15/23 14:55 BP 120/76 04/15/23 14:55 Pulse Ox 99 04/15/23 14:55 Oxygen Delivery Method Room Air 04/15/23 14:55 BMI result Body Mass Index 34.7 Tobacco/Smoking Status: Tobacco use Status Tobacco use date assessed 04/15/23 04/15/23 15:07 Patient Tobacco Use Status Never used Tobacco 04/15/23 15:07 e-Cigarette/Vaping Use Never Used 04/15/23 15:07 Thrive Assessment: Date of Thrive Assessment Date Thrive assessed 06/24/22 04/15/23 15:07 Const General: healthy appearing, no acute distress, alert and awake Nutritional Appearance: well nourished Orientation/consciousness: oriented to person, oriented to place and oriented to time HENMT Ears: TM's normal bilaterally General nose exam: Normal nasal mucous membranes and turbinates present Eyes Conjunctivae: conjunctivae normal Sclerae: sclerae normal Pupils: Equal, round and reactive pupils present Neck Neck: Yes no lymphadenopathy and Yes no JVD Thyroid: Thyroid normal Carotids: no bruits Resp Effort & Inspection: normal respiratory effort and not tachypneic Auscultation: no crackles, no rales, no rhonchi and no wheezes Cardio Rate: regular rate Rhythm: regular rhythm Heart sounds: no murmurs and normal S1 and S2 GI Palpation (GI): Soft to palpation, nontender, no hepatomegaly and no splenomegaly Auscultation: normal bowel sounds Skin General skin exam: no rashes or lesions noted and dry skin Neuro General: oriented to person, oriented to place and oriented to time Cranial nerves: Yes Equal, round and reactive pupils present Speech: No Abnormal speech present Gait exam (Neuro): Normal gait present Motor exam (neuro): no tremor noted Extrem Right upper extremity: full ROM Left upper extremity: full ROM Right lower extremity: full ROM; no edema Left lower extremity: full ROM; no edema Psych Mental Status: mental status grossly normal Speech and movement: Normal speech and movement present Affect: normal affect Attitude: cooperative Thought process: Normal thought process present Assessment and Plan Assessment & Plan (1) anxiety: Code(s): O99.345 - Other mental disorders complicating the puerperium; F41.8 - Other specified anxiety disorders Plan: Patient reports suffering with anxiety. She is interested in trying some treatment for postmortem anxiety. Thus will give her p.r.n. use of lorazepam to use on a very limited basis for panic. She is interested in starting buspirone for daily use for her anxiety. (2) hypertension: Code(s): O16.5 - Unspecified maternal hypertension, complicating the puerperium Plan: Blood pressure acceptable today in office. She continues on labetalol and nifedipine. Will continue this for the next 2 months and reassess blood pressure and need for further antihypertensive medication. Advised on low-sodium diet and increasing exercise. Goal blood pressures to remain below 140/90 Orders: Orders Comprehensive [place]. Panel Fast 04/15/23 O16.5 - Unspecified maternal hypertension, complicating the puerperium Microalbumin, Random (w Creat) 04/15/23 O16.5 - Unspecified maternal hypertension, complicating the puerperium Complete Blood Count no Diff 04/15/23 O16.5 - Unspecified maternal hypertension, complicating the puerperium Medications: New lorazepam 0.5 mg PO DAILY 7 days PRN 7 tabs 0RF anxiety F41.8 - Other specified anxiety disorders, O99.345 - Other mental disorders complicating the puerperium buspirone 10 mg PO BID 30 days 60 tabs 1RF F41.8 - Other specified anxiety disorders, O99.345 - Other mental disorders complicating the puerperium nifedipine ER 60 mg PO DAILY 60 days 60 tabs 1RF O16.5 - Unspecified maternal hypertension, complicating the puerperium labetalol 400 mg (2 x 200 mg) PO BID 60 days 240 tabs 1RF O16.5 - Unspecified maternal hypertension, complicating the puerperium Coding Level of Care Code Est Pt Level 4 (20165) Diagnoses anxiety O99.345; F41.8 hypertension O16.5 Additional Codes EUGENE-7 Assessment Billing - EUGENE-7 Assessment Tool: EUGENE-7 Assessment 70562 ([id number])
== END 2023-04-15 15:25 | disposition home or self-care (01) ==
PROVIDERS: PCP Physician Assistant; Visit Provider Physician Assistant
DX: F41.8 Other specified anxiety disorders (principal); O99.345 Other mental disorders complicating the puerperium; O16.5 Unspecified maternal hypertension, complicating the puerperium
CPT/HCPCS: 96127; 99214

== ENCOUNTER 2023-05-06 09:39 | Outpatient (REF) | payer OTHER, SELFPAY ==
[2023-05-06 11:06] LABS: Hematocrit 41.1 % (37.0-47.0); Hemoglobin 13.1 g/dl (12.0-16.0); Mean Corpuscular HGB Conc 31.9 g/dl (31.0-35.0); Mean Corpuscular Hemoglobin 29.1 pg (27.0-33.0); Mean Corpuscular Volume 91.3 fL (80.0-98.0); Mean Platelet Volume 12.1 fL (9.4-12.3); Platelet Count 188 X10*3/uL (160-400); Red Cell Distribution Width 12.5 % (11.0-16.0); White Blood Count 6.3 X10*3/uL (4.8-10.8)
[2023-05-06 11:46] LABS: Alanine Aminotransferase 21 U/L (0-31); Albumin Level 4.5 g/dL (3.5-5.0); Alkaline Phosphatase 133 U/L (39-117); Anion Gap 14 (12-20); Aspartate Amino Transferase 20 U/L (5-31); Bilirubin Total 0.6 mg/dL (0.0-1.0); Blood Urea Nitrogen 6 mg/dL (9-16); Calcium 9.4 mg/dL (8.4-10.2); Carbon Dioxide 27 mmol/L (22-29); Chloride 103 mmol/L (96-108); Estimated Glomerular Filt Rate > 60; Glucose Fasting 86 mg/dL (60-99); Potassium 3.6 mmol/L (3.3-5.1); Sodium 140 mmol/L (135-145); Total Protein 8.1 g/dL (6.5-8.0)
[2023-05-06 12:36] LABS: Creatinine Urine 307.44 mg/dL; Microalbum/Creatinine Ratio Ur 6.5 ug/mg cr (<30)
== END 2023-05-06 09:40 | disposition home or self-care (01) ==
LOC: HO.LAB 09:39
PROVIDERS: PCP Physician Assistant; Visit Provider Physician Assistant
DX: O16.5 Unspecified maternal hypertension, complicating the puerperium (principal)
CPT/HCPCS: 36415; 80053; 82043; 82570; 85027

== ENCOUNTER 2023-06-28 13:36 | Outpatient (AMB) | payer OTHER, SELFPAY ==
--- NOTE | 2023-06-28 13:37 | MHC.PC.OV ---
Vital Signs 06/28/23 13:38 Height 4 ft 11 in Weight 169 lb BMI 34.1 BP 124/82 Blood Pressure Location Lt brachial Position Sitting Pulse 70 Pulse Source Pulse Oximeter Pulse Oximetry (%) 100 Oxygen Delivery Method Room Air Intake Visit Reasons: pe Intake Note: Patient is here today for a physical. E Learning Specialist Required: No Accompanied by: Self / Same As Patient Allergies shellfish derived [SHELLFISH DERIVED] Allergy (Mild, Verified 06/28/23 14:05) ITCHING nifedipine Adverse Reaction (Intermediate, Verified 06/29/23 08:03) Headaches Medication List - Last Reconciled 06/28/23 by Justice Raygoza PA-C ferrous sulfate (Iron (ferrous sulfate)) 325 mg PO BID hydroxyzine HCl 20 mg (2 x 10 mg) PO BEDTIME PRN PNV [id number] 400 mcg-35 mg- 25 mg-5 mg ( Gummies) 1 tab PO DAILY 90 days Tobacco use date assessed: 04/15/23 Dental Screening Dental Screen Date: 04/15/23 HPI pe HPI Details Patient is a 28-year-old female here today for annual physical.? Patient has a past medical history significant for generalized anxiety disorder, depression, obesity, iron deficiency anemia. Concerns--> hypertension: Blood pressure acceptable today in office. Has not been on in nifedipine or labetalol for the past few weeks. She did have gestational hypertension. She did report side effect of nifedipine of headaches . Seizure disorder: Seizure Thought to be due to depression medication. She reports she is due for brain imaging again in near future. .. Obese:? Has lost weight since last office visit.? She does understand her BMI is over 30.? She reports her eating habits are okay and she does walk her dogs 1-2 miles per day. Depression: She reports her depression has been fairly stable, not further on any antipsychotic medication. Still speaks with a mental health therapist.? Otherwise denies any SI or HI. Iron def anemia:? Most recent hemoglobin stable, iron level stable. Continues with daily use of iron supplementation. Correctional Casework Specialist: Followed by manager transmission and has up-to-date Pap . Vaccines: Up-to-date with COVID vaccine, UTD with Tdap . [facility] Medical History Excessive thirst H/O partial seizures Anemia Obesity (BMI 30.0-34.9) Surgical History Hx of wisdom tooth extraction Hx of section Family History Mother History of mental problems Brother Hx of bipolar disorder Maternal Aunt History of breast cancer in female Paternal Grandmother Family hx-stroke Maternal Aunt Breast cancer Stomach cancer Social History (Updated 06/28/23 @ 14:09 by Justice Raygoza PA-C) Household Members: Spouse and Children Housing: Apartment Are you a primary palliative care specialist to a significant other at home: No Do you presently have visiting nurse or other home services: No Alcohol intake: current Alcohol intake frequency: holidays/special occasions only Patient Tobacco Use Status: Never used Tobacco e-Cigarette/Vaping Use: Never Used Second Hand Smoke Exposure: No service: No 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al status: employed 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: [employer] Cognitive needs: No Hearing needs: No Vision needs: Yes (glasses) Female Reproductive History Menstrual Age of Menarche: 15 Questionnaire Thrive Questionnaire Date Thrive assessed: 06/24/22 EUGENE-7 AMB Questionnaire EUGENE-7 Date EUGENE - 7 assessed: 04/15/23 Source: Developed by Drs. Dangelo Artis, Dede Villegas, Austen Paris and colleagues, with an educational ryann from [employer]. Review of Systems Const Denies body aches, Denies chills, Denies excessive sweating, Denies fatigue, Denies fever(s) and Denies headache(s) Eyes Denies blurry vision ENT Denies dysphagia, Denies vertigo, Denies dizziness, Denies headache(s), Denies hearing loss and Denies tinnitus Card Denies chest pain, Denies chest pain with activity, Denies syncope, Denies irregular heart rhythm and Denies dyspnea Resp Denies chest congestion, Denies cough, Denies hemoptysis, Denies dyspnea and Denies wheezing GI Denies abdominal pain, Denies melena, Denies hematochezia, Denies coffee ground emesis, Denies dysphagia, Denies diarrhea, Denies nausea and Denies vomiting Denies urinary frequency, Denies dysuria, Denies urinary hesitancy and Denies urinary urgency Musc Denies arthralgias, Denies limited range of motion, Denies muscle cramps and Denies muscle weakness Skin/Breast Denies rash and Denies skin ulcer Neuro Denies Abnormal speech present, Denies confusion, Denies vertigo, Denies dizziness, Denies syncope, Denies headache(s), Denies memory loss and Denies seizure-like activity Psych Denies anxiety, Denies confusion, Denies depression, Denies memory loss, Denies panic attacks and Denies paranoia Endo Denies excessive sweating, Denies fatigue, Denies flushing, Denies polydipsia and Denies polyuria Aller/Immun Denies wheezing Physical exam (Primary Care) Vital Signs: Last Vital Signs Pulse 70 06/28/23 13:38 BP 124/82 06/28/23 13:38 Pulse Ox 100 06/28/23 13:38 Oxygen Delivery Method Room Air 06/28/23 13:38 BMI result Body Mass Index 34.1 Tobacco/Smoking Status: Tobacco use Status Tobacco use date assessed 04/15/23 06/28/23 13:37 Patient Tobacco Use Status Never used Tobacco 06/28/23 14:09 e-Cigarette/Vaping Use Never Used 06/28/23 14:09 Thrive Assessment: Date of Thrive Assessment Date Thrive assessed 06/24/22 06/28/23 13:37 Const General: cooperative, comfortable, no acute distress, alert and awake; No confusion Orientation/consciousness: oriented to person, oriented to place, patient oriented x3 and No confusion HENMT Head: Yes normocephalic Ears: external ears normal and TM's normal bilaterally Face and sinus: No sinus tenderness Mouth: Normal oral and palatal mucosa present and tongue normal Teeth and gingiva: dentition normal and gingiva normal Throat: Yes posterior oropharynx normal, Yes tonsils normal and Yes uvula midline Eyes Conjunctivae: conjunctivae normal Sclerae: sclerae normal Pupils: Equal, round and reactive pupils present EOM: EOMs intact bilaterally Direct Ophthalmoscopy: No no photophobia Neck Neck: Yes no lymphadenopathy, No tender and Yes no JVD Thyroid: Thyroid normal Carotids: no bruits Chest Chest palpation & inspection: no tenderness Resp Effort & Inspection: normal respiratory effort, no audible wheezes, not labored and no stridor Auscultation: no crackles, no rales, no rhonchi and no wheezes Cardio Jugular venous distension: no JVD Rate: regular rate, not bradycardic and not tachycardic Rhythm: regular rhythm Bruits: no carotid bruits Peripheral pulses: Peripheral pulses 2+ throughout GI Inspection: Yes normal to inspection, No abdominal wall ecchymosis and No visible herniation Palpation (GI): Soft to palpation, nontender, no guarding, not rigid and No hepatosplenomegaly present Auscultation: normoactive bowel sounds General: Yes no CVA tenderness Back/Spine/Pelvis Back: no CVA tenderness and No back tenderness Cervical Spine: cervical ROM normal Thoracic/Lumbar Spine: thoracic and lumbar spine normal to inspection, straight leg raise negative bilaterally, No thoraco-lumbar ROM limited and No lumbar spinal tenderness Skin Lesions: no lesions Rashes: no rashes Wounds: no wounds Neuro General: oriented to person, oriented to place, patient oriented x3, CN's II-XI intact bilaterally and No confusion Cranial nerves: Yes Equal, round and reactive pupils present and Yes Normal accommodation reflex present Cognition (Neuro): normal cognition Speech: No Abnormal speech present Gait exam (Neuro): Normal gait present Motor exam (neuro): 5/5 motor strength present throughout Extrem Right upper extremity: full ROM; no cyanosis Left upper extremity: full ROM; no cyanosis Right lower extremity: no edema Left lower extremity: no edema Psych Appearance: grossly normal Mental Status: mental status grossly normal Affect: normal affect Attitude: cooperative Thought process: Normal thought process present Assessment and Plan Assessment & Plan (1) Annual physical exam: Code(s): Z00.00 - Encounter for general adult medical examination without abnormal findings (2) Swelling of lower leg: Code(s): M79.89 - Other specified soft tissue disorders Plan: Continues to have trace edema in her lower extremities. Originally thought to be due to seizure medication though has been off seizure medication quite a while now. Will supply patient with hydrochlorothiazide. (3) MDD (major depressive disorder), recurrent episode, mild: Code(s): F33.0 - Major depressive disorder, recurrent, mild Plan: Patient's depression still evident though she feels she is able manage it quite well. She does have a mental health therapist she speaks with. (4) HTN (hypertension): Code(s): I10 - Essential (primary) hypertension Qualifiers: Hypertension type: primary hypertension Qualified Code(s): I10 - Essential (primary) hypertension Plan: Barber blood pressure acceptable today in office. Did have gestational hypertension to which he was on labetalol and nifedipine. She has been off of these medications and seems blood pressures have been stable. She does not regularly check her blood pressure at home . She does occasionally have headaches. Will supply patient with hydrochlorothiazide to better manage her blood pressure and help her with her lower extremity edema. Goal blood pressure to remain below 140/90 and above 100/60. Orders: Orders Comprehensive [place]. Panel Fast 06/28/23 Z13.1 - Encounter for screening for diabetes mellitus Complete Blood Count no Diff 06/28/23 D47.3 - Essential (hemorrhagic) thrombocythemia Medications: New hydrochlorothiazide 12.5 mg PO DAILY 30 tabs 3RF 30 days I10 - Essential (primary) hypertension Patient Instructions: Goals: Blood pressure to remain below 140/90 Barriers: Adherence to healthy eating habits and regular physical activity Coding Level of Care Code Est Pt Prev Care 18-39y(90328) Diagnoses Annual physical exam Z00.00 Swelling of lower leg M79.89 MDD (major depressive disorder), recurrent episode, mild F33.0 Primary hypertension I10 Hypertension type: primary hypertension
[2023-06-28 13:38] VITALS: BP 124/82; PULSE 70; O2SAT 100; BMI 34.1
== END 2023-06-28 14:22 | disposition home or self-care (01) ==
PROVIDERS: Visit Provider Physician Assistant
DX: Z00.00 Encounter for general adult medical examination without abnormal findings (principal); M79.89 Other specified soft tissue disorders; F33.0 Major depressive disorder, recurrent, mild; I10 Essential (primary) hypertension
CPT/HCPCS: 99395

== ENCOUNTER 2023-08-24 14:04 | Outpatient (AMB) | payer OTHER, SELFPAY ==
--- NOTE | 2023-08-24 14:08 | MHC.PC.OV ---
Vital Signs 08/24/23 14:13 Height 4 ft 11 in Weight 164 lb 6 oz BMI 33.2 BP 122/68 Blood Pressure Location Lt brachial Position Sitting Pulse 79 Pulse Source Pulse Oximeter Pulse Oximetry (%) 99 Oxygen Delivery Method Room Air Intake Visit Reasons: follow up blood pressure Drapery Inspector Required: No Accompanied by: Self / Same As Patient Allergies shellfish derived [SHELLFISH DERIVED] Allergy (Mild, Verified 08/24/23 14:19) ITCHING nifedipine Adverse Reaction (Intermediate, Verified 08/24/23 14:19) Headaches Medication List - Last Reconciled 08/24/23 by Justice Raygoza PA-C ferrous sulfate (Iron (ferrous sulfate)) 325 mg PO BID hydrochlorothiazide 12.5 mg PO DAILY 30 days hydroxyzine HCl 20 mg (2 x 10 mg) PO BEDTIME PRN labetalol 400 mg PO BID PNV [id number] 400 mcg-35 mg- 25 mg-5 mg ( Gummies) 1 tab PO DAILY 90 days Tobacco use date assessed: 04/15/23 Dental Screening Dental Screen Date: 04/15/23 HPI follow up blood pressure HPI Details Patient is a 28-year-old female here today for follow-up visit.? Patient has a past medical history significant for generalized anxiety disorder, depression, obesity, iron deficiency anemia. Concerns--> hypertension: Blood pressure acceptable today in office. She reports being on an off of labetalol depending on where blood pressures are. She does report having some higher blood pressures recently and has restarted labetalol. She did report side effect of nifedipine of headaches . Seizure disorder: Seizure Thought to be due to depression medication. She was followed by Neurology though has lost follow-up. She would like to reestablish with Neurology as he continues to have migraine type headaches .. Depression: She reports her depression has been fairly stable, not further on any antipsychotic medication. Still speaks with a mental health therapist.? Otherwise denies any SI or HI. Iron def anemia:? Most recent hemoglobin stable, iron level stable. Continues with daily use of iron supplementation. [facility] Medical History Excessive thirst H/O partial seizures Anemia Obesity (BMI 30.0-34.9) Surgical History Hx of wisdom tooth extraction Hx of section Family History Mother History of mental problems Brother Hx of bipolar disorder Maternal Aunt History of breast cancer in female Paternal Grandmother Family hx-stroke Maternal Aunt Breast cancer Stomach cancer Social History Household Members: Spouse and Children Housing: Apartment Are you a primary workforce investment act career manager to a significant other at home: No Do you presently have visiting nurse or other home services: No Alcohol intake: current Alcohol intake frequency: holidays/special occasions only Patient Tobacco Use Status: Never used Tobacco e-Cigarette/Vaping Use: Never Used Second Hand Smoke Exposure: No service: No 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al status: employed 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: [email or web address] Cognitive needs: No Hearing needs: No Vision needs: Yes (glasses) Female Reproductive History Menstrual Age of Menarche: 15 Questionnaire Thrive Questionnaire Date Thrive assessed: 06/24/22 EUGENE-7 AMB Questionnaire EUGENE-7 Date EUGENE - 7 assessed: 04/15/23 Source: Developed by Drs. Dnagelo Artis, Dede Villegas, Austen Paris and colleagues, with an educational ryann from [employer]. Review of Systems Const Denies headache(s) Eyes Denies loss of vision ENT Denies vertigo, Denies dizziness, Denies headache(s) and Denies sore throat Card Denies chest pain, Denies leg edema and Denies lightheadedness Resp Denies cough, Denies hemoptysis and Denies wheezing GI Denies abdominal pain, Denies melena, Denies constipation, Denies diarrhea and Denies vomiting Denies urinary frequency, Denies dysuria and Denies urinary urgency Musc Denies arthralgias, Denies joint swelling, Denies numbness and Denies tingling Neuro Denies Abnormal speech present, Denies behavioral changes, Denies vertigo, Denies dizziness, Denies headache(s), Denies loss of vision, Denies memory loss, Denies numbness and Denies tingling Psych Denies anxiety, Denies behavioral changes, Denies depression, Denies memory loss and Denies panic attacks Albert/Lymph Denies easy bleeding and Denies easy bruising Aller/Immun Denies wheezing Physical exam (Primary Care) Vital Signs: Last Vital Signs Pulse 79 08/24/23 14:13 BP 122/68 08/24/23 14:13 Pulse Ox 99 08/24/23 14:13 Oxygen Delivery Method Room Air 08/24/23 14:13 BMI result Body Mass Index 33.2 Tobacco/Smoking Status: Tobacco use Status Tobacco use date assessed 04/15/23 08/24/23 14:08 Patient Tobacco Use Status Never used Tobacco 08/24/23 14:08 e-Cigarette/Vaping Use Never Used 08/24/23 14:08 Thrive Assessment: Date of Thrive Assessment Date Thrive assessed 06/24/22 08/24/23 14:08 Const General: healthy appearing, no acute distress, alert and awake Nutritional Appearance: well nourished Orientation/consciousness: oriented to person, oriented to place and oriented to time HENMT Ears: TM's normal bilaterally General nose exam: Normal nasal mucous membranes and turbinates present Eyes Conjunctivae: conjunctivae normal Sclerae: sclerae normal Pupils: Equal, round and reactive pupils present Neck Neck: Yes no lymphadenopathy and Yes no JVD Thyroid: Thyroid normal Carotids: no bruits Resp Effort & Inspection: normal respiratory effort and not tachypneic Auscultation: no crackles, no rales, no rhonchi and no wheezes Cardio Rate: regular rate Rhythm: regular rhythm Heart sounds: no murmurs and normal S1 and S2 GI Palpation (GI): Soft to palpation, nontender, no hepatomegaly and no splenomegaly Auscultation: normal bowel sounds Skin General skin exam: no rashes or lesions noted and dry skin Neuro General: oriented to person, oriented to place and oriented to time Cranial nerves: Yes Equal, round and reactive pupils present Speech: No Abnormal speech present Gait exam (Neuro): Normal gait present Motor exam (neuro): no tremor noted Extrem Right upper extremity: full ROM Left upper extremity: full ROM Right lower extremity: full ROM; no edema Left lower extremity: full ROM; no edema Psych Mental Status: mental status grossly normal Speech and movement: Normal speech and movement present Affect: normal affect Attitude: cooperative Thought process: Normal thought process present Assessment and Plan Assessment & Plan (1) HTN (hypertension): Code(s): I10 - Essential (primary) hypertension Qualifiers: Hypertension type: primary hypertension Qualified Code(s): I10 - Essential (primary) hypertension Plan: Blood pressure appears stable in office today, has been stable at previous office visit. She does report having elevated blood pressures outside of the office and has been intermittently using labetalol. She does also continue on hydrochlorothiazide but for the lower extremity edema.. We did discuss perhaps switching to metoprolol 12.5 mg extended release along with her hydrochlorothiazide to stabilize her blood pressure. Advised to monitor blood pressure more regularly to get a better idea of what her blood pressures are elevated. Goal blood pressure to be below 140/90 Due to her migraines will consider transitioning metoprolol to propranolol for treatment of both her blood pressure and headaches. (2) H/O partial seizures: Code(s): Z86.69 - Personal history of other diseases of the nervous system and sense organs Plan: Patient has a history of partial seizures which were thought to be due to depression medication. She would like to reestablish care with Neurology as she feels she has had recurrent seizures along with more frequent migraine type headaches which have not been controlled with [id number] medication. Orders: Orders IRON PROFILE Today D47.3 - Essential (hemorrhagic) thrombocythemia, D50.9 - Iron deficiency anemia, unspecified Referrals Neurology Referral Z86.69 - Personal history of other diseases of the nervous system and sense organs Medications: New metoprolol succinate ER 12.5 mg (1/2 x 25 mg) PO DAILY 15 tabs 3RF 30 days Changed From hydrochlorothiazide 12.5 mg PO DAILY 30 days 30 tabs 3RF I10 - Essential (primary) hypertension To hydrochlorothiazide 12.5 mg PO DAILY 90 tabs 1RF 90 days I10 - Essential (primary) hypertension Patient Instructions: Goal: Blood pressure to be below 140/90 Barrier: Adherence to physical activity and healthy eating habits Coding Level of Care Code Est Pt Level 4 (39662) Complex EM visit Add On G2211 Diagnoses Primary hypertension I10 Hypertension type: primary hypertension H/O partial seizures Z86.69
[2023-08-24 14:13] VITALS: BP 122/68; PULSE 79; O2SAT 99; BMI 33.2
== END 2023-08-24 14:41 | disposition home or self-care (01) ==
PROVIDERS: PCP Physician Assistant; Visit Provider Physician Assistant
DX: I10 Essential (primary) hypertension (principal); Z86.69 Personal history of other diseases of the nervous system and sense organs
CPT/HCPCS: 99214; G2211

== ENCOUNTER 2023-09-14 10:08 | Outpatient (REF) | payer OTHER, SELFPAY | END 2023-09-14 10:09 | disposition home or self-care (01) | LOC: HO.LAB 10:08 | PROVIDERS: PCP Physician Assistant; Visit Provider Advanced Practice Midwife | DX: N93.9 Abnormal uterine and vaginal bleeding, unspecified (principal); N92.1 Excessive and frequent menstruation with irregular cycle; Z32.02 Encounter for pregnancy test, result negative | CPT/HCPCS: 81025; 99212 ==

== ENCOUNTER 2023-09-14 10:08 | Outpatient (AMB) | payer OTHER, SELFPAY ==
[2023-09-14 10:11] VITALS: BP 116/80; BMI 33.1
--- NOTE | 2023-09-14 10:11 | MHC.OFFVIS ---
Vital Signs 09/14/23 10:11 Height 4 ft 11 in Weight 164 lb BMI 33.1 BP 116/80 Intake Visit Reasons: Libido issues, STD panel, & 2 periods 4 days apart Intake Note: pt c/o period twice this month Music Library Assistant: Music Library Assistant Present (Rosalinda) Allergies shellfish derived [SHELLFISH DERIVED] Allergy (Mild, Verified 09/14/23 10:11) ITCHING nifedipine Adverse Reaction (Intermediate, Verified 09/14/23 10:11) Headaches Is last menstrual period known: Yes Last menstrual period: 09/08/23 HPI Comments Details: Patient is here today with concerns that she has an abnormal menstrual cycle. She reports cramping and heavier flow with clots. History of of delivery 6 months ago emergency due to hypertension preeclampsia and heart rate concerns. She was readmitted an in the hospital for 2 weeks due to her hypertension . She has had some elevations in her blood pressure her monitoring, she reports to digital error with her monitoring. LMP started on August 28 bled to September 03, then restarted bleeding September 07 until this morning she does not report bleeding today. Cycles were normal after delivery for several months. She is not sexually active. Urine test was negative today. [facility] Medical History Excessive thirst H/O partial seizures Anemia Obesity (BMI 30.0-34.9) Surgical History Hx of wisdom tooth extraction Hx of section Family History Mother History of mental problems Brother Hx of bipolar disorder Maternal Aunt History of breast cancer in female Paternal Grandmother Family hx-stroke Maternal Aunt Breast cancer Stomach cancer Social History Household Members: Spouse and Children Housing: Apartment Are you a primary client care manager to a significant other at home: No Do you presently have visiting nurse or other home services: No Alcohol intake: current Alcohol intake frequency: holidays/special occasions only Patient Tobacco Use Status: Never used Tobacco e-Cigarette/Vaping Use: Never Used Second Hand Smoke Exposure: No service: No 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al status: employed 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: [employer] Cognitive needs: No Hearing needs: No Vision needs: Yes (glasses) Female Reproductive History Menstrual Age of Menarche: 15 Date of last menstrual period: 09/08/23 control method: none Total pregnancies: 4 Full term: 2 Number of Living Children: 2 Review of Systems Const All systems reviewed & are unremarkable except as noted in HPI and below Physical Exam Vital Signs: Last Vital Signs BP 116/80 09/14/23 10:11 BMI result Body Mass Index 33.1 Const General: cooperative, healthy appearing and no acute distress Orientation/consciousness: patient oriented x3 GI Inspection: Yes normal to inspection Palpation (GI): Soft to palpation and Other GI palpation findings present (Nontender) Rectal Exam - Female: visual inspection normal General: Yes bladder normal to palpation External Female Exam: normal appearance of the urethra and other Speculum Exam - Vagina: normal appearance of the vagina, normal palpation, normal vaginal discharge and vaginal bleeding (Bled in the posterior vault and from the cervix) Speculum Exam - Cervix: normal appearance of the cervix and normal palpation Bimanual exam- vagina & uterus: normal bimanual exam, normal palpation, uterine size normal, bladder normal to palpation, normal palpation, uterine shape normal and non-tender Bimanual Exam- Adnexa, other: normal adnexae OB/external & speculum: vaginal bleeding (Bled in the posterior vault and from the cervix) Neuro General: patient oriented x3 Results AMB Test Urine AMB Test Urine Negative Last Edit by ALBERT Shipley on 09/14/23 10:21 Assessment & Plan Assessment & Plan (1) Abnormal uterine bleeding (AUB): Code(s): N93.9 - Abnormal uterine and vaginal bleeding, unspecified Category: Medical Plan Discussed: Workup for AUB to include ultrasound labs cultures and Pap. Monitor menstrual cycles, report any unscheduled bleeding, bleeding episodes <24 days apart or heavy/prolonged menstrual bleeding. Call the office for a follow up for any concerns. Return to the office in a few weeks for test results and plan of care. Encouraged good hydration with the heat. All of her questions and concerns were addressed to the best of my ability and shared decision making. She is agreeable to the plan of care. This note is constructed using voice recognition software. While every effort has been made to ensure accuracy, customer operations intern errors may have been included. Orders: Orders AMB HCG Urine Test Today Z32.02 - Encounter for test, result negative US pelvic and transvaginal Today N93.9 - Abnormal uterine and vaginal bleeding, unspecified Complete Blood Count no Diff Today N93.9 - Abnormal uterine and vaginal bleeding, unspecified Bacterial Vaginosis Panel Today N93.9 - Abnormal uterine and vaginal bleeding, unspecified CT NG by PCR Today N93.9 - Abnormal uterine and vaginal bleeding, unspecified PAP rfx HPV E6/E7 and 16 18/45 Today N93.9 - Abnormal uterine and vaginal bleeding, unspecified Thyroid Stimulating Hormone Today N92.1 - Excessive and frequent menstruation with irregular cycle, N93.9 - Abnormal uterine and vaginal bleeding, unspecified Coding Level of Care Code Est Pt Level 4 (88717) Diagnoses Abnormal uterine bleeding (AUB) N93.9
== END 2023-09-14 10:42 | disposition home or self-care (01) ==
LOC: HO.HWS 10:08
PROVIDERS: PCP Physician Assistant; Visit Provider Advanced Practice Midwife
DX: Z32.02 Encounter for pregnancy test, result negative (principal); N93.9 Abnormal uterine and vaginal bleeding, unspecified
CPT/HCPCS: 99214

== ENCOUNTER 2023-09-14 10:37 | Outpatient (REF) | payer OTHER, SELFPAY ==
[2023-09-14 15:36] LABS: Bacterial Vaginosis PCR NEGATIVE (Negative); Candida Group PCR NOT DETECTED (Not Detect); Candida glab krusei PCR NOT DETECTED (Not Detect); Trichomonas vaginalis PCR NOT DETECTED (Not Detect)
[2023-09-14 16:09] LABS: CT PCR NOT DETECTED (Not Detect.); NG PCR NOT DETECTED (Not Detect.)
== END 2023-09-14 10:38 | disposition home or self-care (01) ==
LOC: HO.LNP 10:37
PROVIDERS: Visit Provider Advanced Practice Midwife
DX: Z12.4 Encounter for screening for malignant neoplasm of cervix (principal); N93.9 Abnormal uterine and vaginal bleeding, unspecified
CPT/HCPCS: 0352U; 87491; 87591; 87625; 88175

== ENCOUNTER 2023-09-14 10:47 | Outpatient (REF) | payer OTHER, SELFPAY ==
[2023-09-14 11:05] LABS: Hematocrit 35.7 % (37.0-47.0); Hemoglobin 11.5 g/dl (12.0-16.0); Mean Corpuscular HGB Conc 32.2 g/dl (31.0-35.0); Mean Corpuscular Hemoglobin 29.4 pg (27.0-33.0); Mean Corpuscular Volume 91.3 fL (80.0-98.0); Mean Platelet Volume 9.6 fL (9.4-12.3); Platelet Count 400 X10*3/uL (160-400); Red Blood Count 3.91 X10*6/uL (4.20-5.50); Red Cell Distribution Width 12.7 % (11.0-16.0); White Blood Count 5.3 X10*3/uL (4.8-10.8)
[2023-09-14 11:39] LABS: Alanine Aminotransferase 13 U/L (0-31); Albumin Level 4.4 g/dL (3.5-5.0); Alkaline Phosphatase 109 U/L (39-117); Anion Gap 12 (12-20); Aspartate Amino Transferase 16 U/L (5-31); Bilirubin Total 0.5 mg/dL (0.0-1.0); Blood Urea Nitrogen 12 mg/dL (9-16); Calcium 9.3 mg/dL (8.4-10.2); Carbon Dioxide 24 mmol/L (22-29); Chloride 109 mmol/L (96-108); Estimated Glomerular Filt Rate > 60; Glucose Fasting 84 mg/dL (60-99); Iron 50 mcg/dL (30-160); Percent Iron Saturation 18 % (15-50); Potassium 3.7 mmol/L (3.3-5.1); Sodium 141 mmol/L (135-145); Total Iron Binding Capacity 276 mcg/dL (228-428); Total Protein 7.3 g/dL (6.5-8.0); Unsaturated Iron Binding 226 ug/dL
[2023-09-14 11:53] LABS: Thyroid Stimulating Hormone 1.32 uIU/mL (0.32-4.0)
== END 2023-09-14 10:48 | disposition home or self-care (01) ==
LOC: HO.LAB 10:47
PROVIDERS: Absent Provider Physician Assistant; PCP Physician Assistant; Visit Provider Advanced Practice Midwife
DX: N93.9 Abnormal uterine and vaginal bleeding, unspecified (principal); N92.1 Excessive and frequent menstruation with irregular cycle; D50.9 Iron deficiency anemia, unspecified; D47.3 Essential (hemorrhagic) thrombocythemia; Z13.1 Encounter for screening for diabetes mellitus
CPT/HCPCS: 36415; 80053; 83540; 84443; 85027

== ENCOUNTER 2023-09-29 11:02 | Outpatient (REF) | payer OTHER, SELFPAY ==
--- NOTE | ~2023-09-29 | US_ITS ---
EXAMINATION: US PELVIS CLINICAL INFORMATION: Abnormal vaginal bleeding, uterine bleeding, irregular periods, last menstrual period August 28 to September 08. COMPARISON: Pelvic ultrasound 06/07/2022, obstetrical ultrasound 08/07/2022. TECHNIQUE: Ultrasound of the pelvis is performed using both transabdominal and transvaginal transducers along with Doppler. Transvaginal imaging is performed due to inadequate visualization transabdominally. FINDINGS: The uterus is retroverted and measures 9.8 x 3.7 x 5.5 cm. Endometrial thickness is 12 mm. Small amount of free fluid. Left ovary measures 2.6 x 1.1 x 1.6 cm, volume 2.4 mL and is unremarkable. Right ovary measures 4.1 x 2.6 x 2.8 cm, volume 13.6 mL. Right ovarian 2.3 x 2.1 x 2.2 cm complex cyst with thick ansari and low level internal echoes may represent a corpus luteum and was not visualized on the previous exam. US/US pelvic and transvaginal IMPRESSION: 1. Endometrial thickness is 12 mm. 2. Right ovarian 2.3 cm complex cyst with thick ansari and low level internal echoes may represent a corpus luteum and was not visualized on previous exam. Correlation with clinical exam recommended to determine further management for this patient with irregular vaginal bleeding.
== END 2023-09-29 11:03 | disposition home or self-care (01) ==
LOC: HO.US 11:02
PROVIDERS: PCP Physician Assistant; Visit Provider Advanced Practice Midwife
DX: N93.9 Abnormal uterine and vaginal bleeding, unspecified (principal)
CPT/HCPCS: 76830; 76856

== ENCOUNTER 2023-10-04 12:28 | Outpatient (AMB) | payer OTHER, SELFPAY ==
--- NOTE | 2023-10-04 13:25 | AM.OFFWIN_ITS ---
Intake Vital Signs 10/04/23 13:26 Height 4 ft 11 in Weight 159 lb BMI 32.1 BP 122/84 Blood Pressure Location Lt brachial Position Sitting Pulse 69 Pulse Source Pulse Oximeter Temp 97.8 F Temp Source Temporal Artery Scan Pulse Oximetry (%) 99 Oxygen Delivery Method Room Air Intake Visit Reasons: EP Requesting Labs/ Test Intake Note: pt here requesting labs and test Patient Tobacco Use Status: Never used Tobacco Allergies shellfish derived [SHELLFISH DERIVED] Allergy (Mild, Verified 10/04/23 13:26) ITCHING nifedipine Adverse Reaction (Intermediate, Verified 10/04/23 13:26) Headaches Do you need a note to return to daycare/school/sports/work: No HPI EP Requesting Labs/ Test HPI Details This note is constructed using voice recognition software. While every effort has been made to ensure accuracy, apprenticeship consultant errors may have been i ncluded. The patient is a 28 year old female who presents to the clinic today with concern for . She reports that she has developed some vomiting over the weekend was previously. She has had pregnancies 2 that have ended in miscarriage, all of which she had shown negative tests by urine, which determined to be positive by blood. She reports that she had 2 periods last month on for 7 days off for 4 days on for 7 more and has an appointment with her OBGYN in 2 weeks, however did not want to wait for that appointment to have labs ordered for test. She reports he had 1 episode of diarrhea over the weekend, and does not believe that she has any GI bug as she is did not have any fever, chills, or any other sick contacts. No one around her has had any similar symptoms. [facility] Medical History (Updated 10/04/23 @ 14:01 by Justice Raygoza PA-C) Encounter for screening Excessive thirst H/O partial seizures Anemia Obesity (BMI 30.0-34.9) Surgical History Hx of wisdom tooth extraction Hx of section Family History Mother History of mental problems Brother Hx of bipolar disorder Maternal Aunt History of breast cancer in female Paternal Grandmother Family hx-stroke Maternal Aunt Breast cancer Stomach cancer Social History Household Members: Spouse and Children Housing: Apartment Are you a primary direct care counselor to a significant other at home: No Do you presently have visiting nurse or other home services: No Alcohol intake: current Alcohol intake frequency: holidays/special occasions only Patient Tobacco Use Status: Never used Tobacco e-Cigarette/Vaping Use: Never Used Second Hand Smoke Exposure: No service: No 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al status: employed 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: [id number] Cognitive needs: No Hearing needs: No Vision needs: Yes (glasses) Female Reproductive History Menstrual Age of Menarche: 15 Review of Systems Const All systems reviewed & are unremarkable except as noted in HPI and below Physical Exam Vital Signs: Last Vital Signs Temp 97.8 F 10/04/23 13:26 Pulse 69 10/04/23 13:26 BP 122/84 10/04/23 13:26 Pulse Ox 99 10/04/23 13:26 Oxygen Delivery Method Room Air 10/04/23 13:26 BMI result Body Mass Index 32.1 Const General: cooperative, healthy appearing, comfortable, no acute distress and alert Orientation/consciousness: patient oriented x3 Limitations: no limitations Resp Effort & Inspection: normal respiratory effort and able to speak in complete sentences Auscultation: clear to auscultation bilaterally Cardio Jugular venous distension: no JVD Palpation: normal PMI Rate: regular rate Heart sounds: S1 normal heart sound present, S2 normal heart sound present, no click, no gallops, no murmurs and no rubs GI Inspection: Yes normal to inspection Palpation (GI): Soft to palpation and nontender Percussion: Yes normal to percussion Auscultation: normal bowel sounds Skin General skin exam: no rashes or lesions noted, elasticity normal and turgor normal Neuro General: patient oriented x3 Psych Appearance: grossly normal Mental Status: mental status grossly normal Speech and movement: Normal speech and movement present Affect: normal affect Results AMB Test Urine AMB Test Urine Negative Last Edit by Huan Dennis CMA on 4 13:40 Results Reviewed Results Reviewed: Laboratory Last Values Tst Clinic Negative 10/04/23 13:39 Assessment & Plan Assessment & Plan (1) Abnormal menses: Code(s): N92.6 - Irregular menstruation, unspecified Plan: Advised patient to follow business intelligence engineer as planned in 2 weeks. In office test by urine negative. Did order by blood given patient's previously experienced lab discrepancy by urine for reassurance. Advised patient to take vitamins. Reviewed consideration of progesterone only control in mom. Plan See above for full details and plan. Orders: Orders AMB HCG Urine Test Today OSIEL Howard Z13.9 - Encounter for screening, unspecified HCG Quantitative 10/05/23 Mary Newberry NP N92.6 - Irregular menstruation, unspecified Coding Level of Care Code Est Pt Level 3 (28620) Diagnoses Abnormal menses N92.6
[2023-10-04 13:26] VITALS: BP 122/84; PULSE 69; TEMP 36.6; O2SAT 99; BMI 32.1
== END 2023-10-04 15:32 | disposition home or self-care (01) ==
PROVIDERS: PCP Physician Assistant; Visit Provider Registered Nurse
DX: N92.6 Irregular menstruation, unspecified (principal); Z32.02 Encounter for pregnancy test, result negative
CPT/HCPCS: 81025; 99213

== ENCOUNTER 2023-10-04 15:46 | Outpatient (REF) | payer OTHER, SELFPAY ==
[2023-10-04 17:40] LABS: HCG Quantitative < 2 mIU/mL
== END 2023-10-04 15:47 | disposition home or self-care (01) ==
LOC: HO.LAB 15:46
PROVIDERS: Absent Provider Physician Assistant; PCP Physician Assistant; Visit Provider Registered Nurse
DX: N92.6 Irregular menstruation, unspecified (principal)
CPT/HCPCS: 36415; 84702

== ENCOUNTER 2023-10-15 15:34 | Outpatient (AMB) | payer OTHER, SELFPAY ==
--- NOTE | 2023-10-15 15:38 | A.OFFVIS_ITS ---
Vital Signs 10/15/23 15:41 BP 110/70 Intake Visit Reasons: Ultrasound follow up Allergies shellfish derived [SHELLFISH DERIVED] Allergy (Mild, Verified 10/15/23 15:40) ITCHING nifedipine Adverse Reaction (Intermediate, Verified 10/15/23 15:40) Headaches Is last menstrual period known: Yes Last menstrual period: 10/06/23 HPI Comments Details: Patient is here today for a follow up on her ultrasound, history of AUB. Pap smear and cultures from previous visit last month are all negative. Currently breast-feeding has not been sexually active and denies any risk of . Currently on antihypertensive medications. She denies any contraindications to control such as: migraines with aura, history of DVT or pulmonary emboli, liver disease, thrombolic disorders, Lupus, +DANNA, breast cancer, or smoking. Reports a history of seizures due to medication. [facility] Medical History (Updated 10/15/23 @ 15:54 by Xiao Sanchez CNM) Encounter for screening Excessive thirst H/O partial seizures Anemia Obesity (BMI 30.0-34.9) Surgical History Hx of wisdom tooth extraction Hx of section Family History Mother History of mental problems Brother Hx of bipolar disorder Maternal Aunt History of breast cancer in female Paternal Grandmother Family hx-stroke Maternal Aunt Breast cancer Stomach cancer Social History Household Members: Spouse and Children Housing: Apartment Are you a primary career development coordinator to a significant other at home: No Do you presently have visiting nurse or other home services: No Alcohol intake: current Alcohol intake frequency: holidays/special occasions only Patient Tobacco Use Status: Never used Tobacco e-Cigarette/Vaping Use: Never Used Second Hand Smoke Exposure: No service: No 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al status: employed 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: [employer] Cognitive needs: No Hearing needs: No Vision needs: Yes (glasses) Female Reproductive History Menstrual Age of Menarche: 15 Date of last menstrual period: 10/06/23 Review of Systems Const All systems reviewed & are unremarkable except as noted in HPI and below Reports as per HPI Eyes Reports no additional complaints ENT Reports no additional complaints Card Reports no additional complaints Resp Reports no additional complaints GI Reports as per HPI and Reports no additional complaints Reports as per HPI Musc Reports no additional complaints Skin/Breast Reports as per HPI Neuro Reports no additional complaints Psych Reports no additional complaints Endo Reports no additional complaints Albert/Lymph Reports no additional complaints Aller/Immun Reports no additional complaints Physical Exam Const General: cooperative, healthy appearing, no acute distress and alert Results Reviewed Results Reviewed: [address] [address] Ultrasound Report Signed Patient: Filemon Helton MR#: [id number] : 1995 Acct:[id number] Age/Sex: 28 / F ADM Date: 09/29/23 Loc: HO.US Attending Dr: Xiao Sanchez CNM Ordering Physician: Xiao Sanchez CNM Date of Service: 09/29/23 Procedure(s): US pelvic and transvaginal Accession Number(s): [id number] cc: Justice Raygoza PA-C; Xiao Sanchez CNM~ EXAMINATION: US PELVIS CLINICAL INFORMATION: Abnormal vaginal bleeding, uterine bleeding, irregular periods, last menstrual period August 28 to September 08. COMPARISON: Pelvic ultrasound 06/07/2022, obstetrical ultrasound 08/07/2022. TECHNIQUE: Ultrasound of the pelvis is performed using both transabdominal and transvaginal transducers along with Doppler. Transvaginal imaging is performed due to inadequate visualization transabdominally. FINDINGS: The uterus is retroverted and measures 9.8 x 3.7 x 5.5 cm. Endometrial thickness is 12 mm. Small amount of free fluid. Left ovary measures 2.6 x 1.1 x 1.6 cm, volume 2.4 mL and is unremarkable. Right ovary measures 4.1 x 2.6 x 2.8 cm, volume 13.6 mL. Right ovarian 2.3 x 2.1 x 2.2 cm complex cyst with thick ansari and low level internal echoes may represent a corpus luteum and was not visualized on the previous exam. US/US pelvic and transvaginal IMPRESSION: 1. Endometrial thickness is 12 mm. 2. Right ovarian 2.3 cm complex cyst with thick ansari and low level internal echoes may represent a corpus luteum and was not visualized on previous exam. Correlation with clinical exam recommended to determine further management for this patient with irregular vaginal bleeding. Dictated By: Juliet Rivas MD Signed By: <Electronically signed by Juliet Rivas MD in OV> 10/11/23 1444 DD/ 1144 TD/TT: Senior Engineering Team Leader: Assessment & Plan Assessment & Plan (1) Abnormal uterine bleeding (AUB): Code(s): N93.9 - Abnormal uterine and vaginal bleeding, unspecified Category: Medical (2) Encounter to discuss test results: Code(s): Z71.2 - Person consulting for explanation of examination or test findings (3) Complex ovarian cyst: Code(s): N83.299 - Other ovarian cyst, unspecified side Category: Medical (4) Lactating mother: Code(s): Z39.1 - Encounter for care and examination of lactating mother (5) BCP ( control pills) initiation: Code(s): Z30.011 - Encounter for initial prescription of contraceptive pills Plan Discussed: Ultrasound findings-complex ovarian cyst most likely corpus luteum cyst, plan follow up ultrasound approximately 2 months. She is interested in doing control has been on the NuvaRing in the past. Advised against starting the NuvaRing due to the breast-feeding and history of hypertension. Counseled regarding options to include progesterone only products, such as the NuvaRing,implants, IUD. She opts to do the pill, reviewed instructions, side effects, warnings and backup method if she were to be sexually active. control hormone use warnings: go to ER if and loss of vision, blindness, severe headache, chest pain or difficulty breathing, severe abdominal pain, or any pain or swelling in an extremity. Pill check at ultrasound follow up visit. All of her questions and concerns were addressed to the best of my ability and shared decision making. She is agreeable to the plan of care. This note is constructed using voice recognition software. While every effort has been made to ensure accuracy, regional owner operator truck driver errors may have been included. Orders: Orders US pelvic and transvaginal 11/15/23 N83.299 - Other ovarian cyst, unspecified side Coding Level of Care Code Est Pt Level 3 (53479) Diagnoses Abnormal uterine bleeding (AUB) N93.9 Encounter to discuss test results Z71.2 Complex ovarian cyst N83.299 Lactating mother Z39.1 BCP ( control pills) initiation Z30.011
[2023-10-15 15:41] VITALS: BP 110/70
== END 2023-10-15 16:02 | disposition home or self-care (01) ==
LOC: HO.HWS 15:34
PROVIDERS: PCP Physician Assistant; Visit Provider Advanced Practice Midwife
DX: N93.9 Abnormal uterine and vaginal bleeding, unspecified (principal); Z71.2 Person consulting for explanation of examination or test findings; N83.291 Other ovarian cyst, right side; Z30.011 Encounter for initial prescription of contraceptive pills
CPT/HCPCS: 99213

== ENCOUNTER → 2023-10-15 15:34 | Outpatient (BNVA) | payer OTHER, SELFPAY | PROVIDERS: PCP Physician Assistant; Visit Provider Advanced Practice Midwife | DX: Z30.011 Encounter for initial prescription of contraceptive pills (principal); Z71.2 Person consulting for explanation of examination or test findings; Z39.1 Encounter for care and examination of lactating mother; N93.9 Abnormal uterine and vaginal bleeding, unspecified; N83.299 Other ovarian cyst, unspecified side | CPT/HCPCS: 99212 ==

== ENCOUNTER 2023-10-19 11:03 | Outpatient (AMB) | payer OTHER, SELFPAY ==
[2023-10-19 11:05] VITALS: BP 126/86; PULSE 72; O2SAT 97; BMI 32.3
--- NOTE | 2023-10-19 11:05 | A.OFFPC_ITS ---
Vital Signs 10/19/23 11:05 Height 4 ft 11 in Weight 160 lb BMI 32.3 BP 126/86 Blood Pressure Location Lt brachial Position Sitting Pulse 72 Pulse Source Pulse Oximeter Pulse Oximetry (%) 97 Oxygen Delivery Method Room Air Intake Visit Reasons: f/u HTN Animal Services Officer Required: No Accompanied by: children Allergies shellfish derived [SHELLFISH DERIVED] Allergy (Mild, Verified 10/19/23 11:15) ITCHING nifedipine Adverse Reaction (Intermediate, Verified 10/19/23 11:15) Headaches Medication List - Last Reconciled 10/19/23 by Justice Raygoza PA-C hydrochlorothiazide 12.5 mg PO DAILY 90 days hydroxyzine HCl 20 mg (2 x 10 mg) PO BEDTIME PRN lamotrigine 25 mg PO DAILY metoprolol succinate ER 12.5 mg (1/2 x 25 mg) PO DAILY 30 days PNV [id number] 400 mcg-35 mg- 25 mg-5 mg ( Gummies) 1 tab PO DAILY 90 days Tobacco use date assessed: 04/15/23 Dental Screening Dental Screen Date: 04/15/23 HPI f/u HTN HPI Details Patient is a 28-year-old female here today for follow-up visit.? Patient has a past medical history significant for generalized anxiety disorder, depression, obesity, iron deficiency anemia. Concern---> has been followed by nuclear officer specialty for an ovarian cyst. Pelvic ultrasound showing--> Right ovarian 2.3 cm complex cyst with thick ansari and low level internal echoes may represent a corpus luteum and was not visualized on previous exam hypertension: Blood pressure acceptable today in office. Patient continues on metoprolol and hydrochlorothiazide with good effect.. .. Depression: She reports her depression has been fairly stable, not further on any antipsychotic medication. Still speaks with a mental health therapist.? Otherwise denies any SI or HI. Iron def anemia:? Most recent hemoglobin stable, iron level stable. Continues with daily use of iron supplementation. [facility] Medical History Encounter for screening Excessive thirst H/O partial seizures Anemia Obesity (BMI 30.0-34.9) Surgical History Hx of wisdom tooth extraction Hx of section Family History Mother History of mental problems Brother Hx of bipolar disorder Maternal Aunt History of breast cancer in female Paternal Grandmother Family hx-stroke Maternal Aunt Breast cancer Stomach cancer Social History Household Members: Spouse and Children Housing: Apartment Are you a primary property caretaker to a significant other at home: No Do you presently have visiting nurse or other home services: No Alcohol intake: current Alcohol intake frequency: holidays/special occasions only Patient Tobacco Use Status: Never used Tobacco e-Cigarette/Vaping Use: Never Used Second Hand Smoke Exposure: No service: No 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al status: employed 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: [employer] Cognitive needs: No Hearing needs: No Vision needs: Yes (glasses) Female Reproductive History Menstrual Age of Menarche: 15 Questionnaire Thrive Questionnaire Date Thrive assessed: 06/24/22 EUGENE-7 AMB Questionnaire EUGENE-7 Date EUGENE - 7 assessed: 04/15/23 Source: Developed by Drs. Dangelo Artis, Dede Villegas, Austen Paris and colleagues, with an educational ryann from [email or web address]. Review of Systems Const Denies headache(s) Eyes Denies loss of vision ENT Denies vertigo, Denies dizziness, Denies headache(s) and Denies sore throat Card Denies chest pain, Denies leg edema and Denies lightheadedness Resp Denies cough, Denies hemoptysis and Denies wheezing GI Denies abdominal pain, Denies melena, Denies constipation, Denies diarrhea and Denies vomiting Denies urinary frequency, Denies dysuria and Denies urinary urgency Musc Denies arthralgias, Denies joint swelling, Denies numbness and Denies tingling Neuro Denies Abnormal speech present, Denies behavioral changes, Denies vertigo, Denies dizziness, Denies headache(s), Denies loss of vision, Denies memory loss, Denies numbness and Denies tingling Psych Denies anxiety, Denies behavioral changes, Denies depression, Denies memory loss and Denies panic attacks Albert/Lymph Denies easy bleeding and Denies easy bruising Aller/Immun Denies wheezing Physical exam (Primary Care) Vital Signs: Last Vital Signs Pulse 72 10/19/23 11:05 BP 126/86 10/19/23 11:05 Pulse Ox 97 10/19/23 11:05 Oxygen Delivery Method Room Air 10/19/23 11:05 BMI result Body Mass Index 32.3 Tobacco/Smoking Status: Tobacco use Status Tobacco use date assessed 04/15/23 10/19/23 11:13 Patient Tobacco Use Status Never used Tobacco 10/19/23 11:13 e-Cigarette/Vaping Use Never Used 10/19/23 11:13 Thrive Assessment: Date of Thrive Assessment Date Thrive assessed 06/24/22 10/19/23 11:13 Const General: healthy appearing, no acute distress, alert and awake Nutritional Appearance: well nourished Orientation/consciousness: oriented to person, oriented to place and oriented to time HENMT Ears: TM's normal bilaterally General nose exam: Normal nasal mucous membranes and turbinates present Eyes Conjunctivae: conjunctivae normal Sclerae: sclerae normal Pupils: Equal, round and reactive pupils present Neck Neck: Yes no lymphadenopathy and Yes no JVD Thyroid: Thyroid normal Carotids: no bruits Resp Effort & Inspection: normal respiratory effort and not tachypneic Auscultation: no crackles, no rales, no rhonchi and no wheezes Cardio Rate: regular rate Rhythm: regular rhythm Heart sounds: no murmurs and normal S1 and S2 GI Palpation (GI): Soft to palpation, nontender, no hepatomegaly and no splenomegaly Auscultation: normal bowel sounds Skin General skin exam: no rashes or lesions noted and dry skin Neuro General: oriented to person, oriented to place and oriented to time Cranial nerves: Yes Equal, round and reactive pupils present Speech: No Abnormal speech present Gait exam (Neuro): Normal gait present Motor exam (neuro): no tremor noted Extrem Right upper extremity: full ROM Left upper extremity: full ROM Right lower extremity: full ROM; no edema Left lower extremity: full ROM; no edema Psych Mental Status: mental status grossly normal Speech and movement: Normal speech and movement present Affect: normal affect Attitude: cooperative Thought process: Normal thought process present Assessment and Plan Assessment & Plan (1) HTN (hypertension): Code(s): I10 - Essential (primary) hypertension Qualifiers: Hypertension type: primary hypertension Qualified Code(s): I10 - Essential (primary) hypertension Plan: Blood pressure appears stable in office today, patient continues on metoprolol and hydrochlorothiazide without any side effect and good control of her blood pressure. She reports her extremity edema has resolved. Advised to monitor blood pressure more regularly to get a better idea of what her blood pressures are elevated. Goal blood pressure to be below 140/90 Orders: Orders Comprehensive [place]. Panel Fast Today I10 - Essential (primary) hypertension Complete Blood Count no Diff Today D47.3 - Essential (hemorrhagic) thrombocythemia Microalbumin, Random (w Creat) Today I10 - Essential (primary) hypertension Patient Instructions: Goal: Blood pressure to be below 140/90 Barriers: Adherence to physical activity and healthy eating habits Coding Level of Care Code Est Pt Level 3 (31910) Diagnoses Primary hypertension I10 Hypertension type: primary hypertension
== END 2023-10-19 11:25 | disposition home or self-care (01) ==
PROVIDERS: PCP Physician Assistant; Visit Provider Physician Assistant
DX: I10 Essential (primary) hypertension (principal)
CPT/HCPCS: 99213

== ENCOUNTER 2023-11-12 10:55 | Outpatient (REF) | payer OTHER, SELFPAY ==
--- NOTE | ~2023-11-12 | US_ITS ---
EXAMINATION: US PELVIS, TRANSABDOMINAL AND TRANSVAGINAL CLINICAL INFORMATION: Ovarian cyst. COMPARISON: Ultrasound 09/29/2023: Right ovarian 2.3 cm complex cyst with thick ansari and low level internal echoes may represent a corpus luteum and was not visualized on previous exam. TECHNIQUE: Ultrasound of the pelvis is performed using both transabdominal and transvaginal transducers along with Doppler. Transvaginal imaging is performed due to inadequate visualization transabdominally. FINDINGS: UTERUS: The uterus is anteverted and retroflexed measuring 10.4 x 4.9 x 5.6 cm for a volume of 113 mL. The double wall endometrial thickness is 13 mm. The uterus is smooth in contour and has normal myometrial echogenicity. No visible fibroid. Nabothian cysts are noted in the cervix. ADNEXA: Both ovaries are visualized. There is normal color flow to the adnexa. There is no ovarian torsion. There is no pelvic ascites or fluid collection. Right ovary measures 2.7 x 1.8 x 2.3 cm for a volume of 5.8 mL. A dominant normal follicle is present in the right ovary measuring 1.5 cm. The previously seen hemorrhagic echogenic complex cyst is no longer present. Left ovary measures 3.4 x 1.9 x 2.4 cm for a volume of 7.9 mL. US/US pelvic and transvaginal IMPRESSION: Negative exam. Resolved complex right ovarian cyst. Electronically signed by: Jake Teran MD 11/17/2023 03:51 PM EDT
== END 2023-11-12 10:56 | disposition home or self-care (01) ==
LOC: HO.US 10:55
PROVIDERS: PCP Physician Assistant; Visit Provider Advanced Practice Midwife
DX: N83.299 Other ovarian cyst, unspecified side (principal)
CPT/HCPCS: 76830; 76856

== ENCOUNTER 2024-01-13 13:40 | Outpatient (AMB) | payer OTHER, SELFPAY ==
[2024-01-13 13:48] VITALS: BP 108/70; BMI 33.0
--- NOTE | 2024-01-13 13:48 | A.OFFVIS_ITS ---
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 Never started control. Windows Architect Required: No Textile Cutting Machine Operator: Textile Cutting Machine Operator Present Allergies shellfish derived [SHELLFISH DERIVED] Allergy (Mild, Verified 10/19/23 11:15) ITCHING nifedipine Adverse Reaction (Intermediate, Verified 10/19/23 11:15) Headaches Is last menstrual period known: Yes Last menstrual period: 12/29/23 Post menopausal: No Patient : No HPI Comments Details: Patient is here today for a follow up pelvic ultrasound results and control surveillance, BP check. History of hypertension. History of abnormal bleeding. She did not start control as the pharmacy never got the prescription. She is currently not been sexually active and denies any risk to . She reports her cycles have been coming about a week later than their normal range for the last few months, not heavier prolonged. Labs September 13 globe and was 11.5 and TSH was 1.32. LMP December 29 2023. She admits to a lot of stress in his wondering if that is affecting her cycles. She reports cramping about a week after her cycle denies any vaginal discharge or odors, no urinary symptoms. [facility] Medical History (Updated 01/13/24 @ 14:19 by Xiao Sanchez CNM) Encounter for screening Excessive thirst H/O partial seizures Anemia Obesity (BMI 30.0-34.9) Surgical History Hx of wisdom tooth extraction Hx of section Family History Mother History of mental problems Brother Hx of bipolar disorder Maternal Aunt History of breast cancer in female Paternal Grandmother Family hx-stroke Maternal Aunt Breast cancer Stomach cancer Social History Household Members: Spouse and Children Housing: Apartment Are you a primary patient care associate to a significant other at home: No Do you presently have visiting nurse or other home services: No Alcohol intake: current Alcohol intake frequency: holidays/special occasions only Patient Tobacco Use Status: Never used Tobacco e-Cigarette/Vaping Use: Never Used Second Hand Smoke Exposure: No service: No 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al status: employed 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: [employer] Cognitive needs: No Hearing needs: No Vision needs: Yes (glasses) Female Reproductive History Menstrual Age of Menarche: 15 Date of last menstrual period: 12/29/23 Total pregnancies: 4 Full term: 2 Premature: 0 Number of Living Children: 2 Ab induced: 0 Ab spontaneous: 2 Ectopics: 0 Multiple births: 0 History of abnormal pap smear: No History of STI: No Review of Systems Const All systems reviewed & are unremarkable except as noted in HPI and below Endo Reports no additional complaints Physical Exam Const General: cooperative, healthy appearing and no acute distress Psych Appearance: well kempt Attitude: cooperative Thought process: Normal thought process present Results Reviewed Results Reviewed: [address] [address] Ultrasound Report Signed Patient: Filemon Helton MR#: [id number] : 1995 Acct:[id number] Age/Sex: 28 / F ADM Date: 11/12/23 Loc: HO.US Attending Dr: Xiao Sanchez CNM Ordering Physician: Xiao Sanchez CNM Date of Service: 11/12/23 Procedure(s): US pelvic and transvaginal Accession Number(s): [id number] cc: Justice Raygoza PA-C; Xiao Sanchez CNM~ EXAMINATION: US PELVIS, TRANSABDOMINAL AND TRANSVAGINAL CLINICAL INFORMATION: Ovarian cyst. COMPARISON: Ultrasound 09/29/2023: Right ovarian 2.3 cm complex cyst with thick ansari and low level internal echoes may represent a corpus luteum and was not visualized on previous exam. TECHNIQUE: Ultrasound of the pelvis is performed using both transabdominal and transvaginal transducers along with Doppler. Transvaginal imaging is performed due to inadequate visualization transabdominally. FINDINGS: UTERUS: The uterus is anteverted and retroflexed measuring 10.4 x 4.9 x 5.6 cm for a volume of 113 mL. The double wall endometrial thickness is 13 mm. The uterus is smooth in contour and has normal myometrial echogenicity. No visible fibroid. Nabothian cysts are noted in the cervix. ADNEXA: Both ovaries are visualized. There is normal color flow to the adnexa. There is no ovarian torsion. There is no pelvic ascites or fluid collection. Right ovary measures 2.7 x 1.8 x 2.3 cm for a volume of 5.8 mL. A dominant normal follicle is present in the right ovary measuring 1.5 cm. The previously seen hemorrhagic echogenic complex cyst is no longer present. Left ovary measures 3.4 x 1.9 x 2.4 cm for a volume of 7.9 mL. US/US pelvic and transvaginal IMPRESSION: Negative exam. Resolved complex right ovarian cyst. Electronically signed by: Jake Teran MD 11/17/2023 03:51 PM EDT RP Dictated By: Jake Teran MD Signed By: <Electronically signed by Jake Teran MD in OV> 11/17/23 1551 DD/ 1107 TD/TT: 11/12/23 1143 Glass Installer: SS Assessment & Plan Assessment & Plan (1) HTN (hypertension): Code(s): I10 - Essential (primary) hypertension Category: Medical Qualifiers: Hypertension type: primary hypertension Qualified Code(s): I10 - Essential (primary) hypertension (2) Encounter to discuss test results: Code(s): Z71.2 - Person consulting for explanation of examination or test findings (3) Counseling for initiation of control method: Code(s): Z30.09 - Encounter for other general counseling and advice on contraception Plan Discussed: Ultrasound findings-complex ovarian cyst resolved. See report-no indication for follow up at this time. Discuss options for control, avoidance of estrogen at this time. Plan [place] Rx sent to [facility]. Plan pill check in 2-3 months with annual exam combined. Side effects reviewed and timing of medication sensitivity. When to use a backup method if sexually active. control hormone use warnings: go to ER if and loss of vision, blindness, severe headache, chest pain or difficulty breathing, severe abdominal pain, or any pain or swelling in an extremity. Stress reduction self-help techniques including meditation, yoga, exercise, reading, music, hiking out nature, other modalities. Diet encouraged healthy low-sodium, dash diet information provided. All of her questions and concerns were addressed to the best of my ability and shared decision making. She is agreeable to the plan of care. This note is constructed using voice recognition software. While every effort has been made to ensure accuracy, business intelligence developer errors may have been included. Medications: New norethindrone (contraceptive) (Kate) 0.35 mg PO DAILY 90 days 90 tabs 0RF Coding Level of Care Code Est Pt Level 3 (46258) Diagnoses Primary hypertension I10 Hypertension type: primary hypertension Encounter to discuss test results Z71.2 Counseling for initiation of control method Z30.09
== END 2024-01-13 14:38 | disposition home or self-care (01) ==
LOC: HO.HWS 13:40
PROVIDERS: PCP Physician Assistant; Visit Provider Advanced Practice Midwife
DX: I10 Essential (primary) hypertension (principal); Z71.2 Person consulting for explanation of examination or test findings; Z30.09 Encounter for other general counseling and advice on contraception
CPT/HCPCS: 99213

== ENCOUNTER → 2024-01-13 13:40 | Outpatient (BNVA) | payer OTHER, SELFPAY | PROVIDERS: PCP Physician Assistant; Visit Provider Advanced Practice Midwife | DX: I10 Essential (primary) hypertension (principal); Z71.2 Person consulting for explanation of examination or test findings; Z30.09 Encounter for other general counseling and advice on contraception | CPT/HCPCS: 99212 ==

== ENCOUNTER 2024-04-19 15:24 | Outpatient (AMB) | payer OTHER, SELFPAY ==
--- OUTSIDE RECORDS SUMMARY | 2024-04-19 15:27 | XMS_ITS | Patient Health Record ---
Author Organization [facility] Address [address] [facility] [place], [place] [id number] Care Team Providers Care Bevel Operator Name Role Phone KAYKAY PATTEN [phone] Reason For Referral No Information Medications Medication SIG (Take, Route, Fr equency, Duration) Notes Start Date End Date Status Active Plan B One-Step 1.5 MG 1 tablet Orally A t once for 1 days 05/01/2022 Active Plan B One-Step 1.5 MG 1 tablet Orally A t once for 1 days 08/28/2020 Active Levonorgestrel 1.5 MG as directed Orally Active Levonorgestrel 1.5 MG as directed Orally Active Social History Sex Assigned At : Social History Observation Description Sex Assigned At Female Encounters Encounter Location Date Provider Diagnosis [address] [id number] 09/27/2023 KAYKAY GABAI Encounter for prescription of emergency contraception Z30.[address] [id number] 03/08/2024 KAYKAY GABAI Encounter for prescription of emergency contraception Z30.012 Assessments Encounter Date Diagnosis (ICD Code) Assessment Notes Treatment Notes Treatment Clinical Notes Section Notes 09/27/2023 Encounter for prescription of emergency contraception (ICD-10 - Z30.012) Client counseled that there is a chance of even after treatment. Client advised to refrain from unprotected intercourse following treatment, as Emergency Contraception will not prevent during this time, and risk may be increased due to a possible delay in ovulation. If no menses occur in 4 weeks after treatment, the client should return for a test. Dispensed condoms with emergency contraception and emergency contraception information sheet 03/08/2024 Encounter for prescription of emergency contraception (ICD-10 - Z30.012) Client counseled that there is a chance of even after treatment. Client advised to refrain from unprotected intercourse following treatment, as Emergency Contraception will not prevent during this time, and risk may be increased due to a possible delay in ovulation. If no menses occur in 4 weeks after treatment, the client should return for a test. Dispensed condoms with emergency contraception and emergency contraception information sheet 09/27/2023 Other Discussed STI risks, screening, and safe sex 03/08/2024 Other Discussed STI risks, screening, and safe sex Plan Of Treatment No Information Insurance Providers Payer Name Payer Address Payer Phone Subscriber Number Group Number Insured Name Patient Relationship to Insured Coverage Start Date Coverage End Date [place] CLAIMS [address] [place] [id number] Filemon Helton Self - patient is the insured
--- OUTSIDE RECORDS SUMMARY | 2024-04-19 15:27 | XMS_ITS ---
Author Organization [facility] Address [address] [place] [phone] Care Team Providers Care Battery Filler Name Role Phone LYNDSEY PATTEN Unavailable [phone] REASON FOR VISIT EC, Plan B Medications Medication SIG (Take, Route, Fr equency, Duration) Notes Start Date End Date Status Plan B One-Step 1.5 MG 1 tablet Orally A t once for 1 days 05/01/2022 Active Levonorgestrel 1.5 MG as directed Orally Active Active Plan B One-Step 1.5 MG 1 tablet Orally A t once for 1 days 08/28/2020 Active Social History Sex Assigned At : Social History Observation Description Sex Assigned At Female Encounters Encounter Location Date Provider Diagnosis [facility] [address] [place], [place] [phone] 09/27/2023 LYNDSEY PATTEN Encounter for prescription of emergency contraception Z30.012 [...] screening, and safe sex Plan Of Treatment Medication Medication Name Sig Start Date Stop Date Notes Levonorgestrel 1.5 MG as directed Orally Treatment Notes Assessment Notes Encounter for prescription o f emergency contraception Client counseled that there is a chance [...] emergency contraception and emergency contraception information sheet Other Discussed STI risks, screening, and safe sex Progress Notes * Filemon HELTON LDOB:[birth year] (28 yo F)Acc No.[id number]:09/27/2023 Progress Notes Patient:?Filemon HELTON Provider:?Lyndsey Patten NP :1995???Age:28 Y???Sex:Female D ate:09/27/2023 Address:[address] [place], [place] [id number] Subjective: * Chief Complaints: * ???ECPlan B * Medical History:? * Surgical History:? * Hospitalization/Major Diagno stic Procedure:? * Medications:?TakingPrenatal Plan B One-Step 1.5 MG Tablet 1 tablet Orally At once Plan B One-Step 1.5 MG Tablet 1 tablet Orally At once Taking Taking Plan B One-Step 1.5 MG Tablet 1 tablet Orally At once Taking Plan B One-Step 1.5 MG Tablet 1 tablet Orally At once Objective: * Vitals:? Assessment: * Assessment: 1.?Encounter for prescriptio n of emergency contraception - Z30.012 (Primary)??? Plan: * Treatment: 2.?Others? Notes: Discussed STI risks, screening, and safe sex?? * Procedure Codes:?S4993 Emerg ency Contraception * Billing Information: * Visit Code:? 25297 Existing - Counseling (IN USE). * Procedure Codes:? S4993 Emergency Contraception. * Sign off status: Completed true * Provider:?Lyndsey Patten NP Date:? 024 Generated for Emily sorto/Lc/Andres on:?04/19/2024 03:26 PM EST
--- OUTSIDE RECORDS SUMMARY | 2024-04-19 15:27 | XMS_ITS ---
Author Organization [facility] Address [address] [place] [phone] Care Team Providers Care Evaporator Repairer Name Role Phone LYNDSEY PATTEN Unavailable [phone] REASON FOR VISIT EC Medications Medication SIG (Take, Route, Fr equency, [...] Female Encounters Encounter Location Date Provider Diagnosis [address] [place], [place] [phone] 03/08/2024 LYNDSEY PATTEN Encounter for prescription of emergency contraception Z30.012 Assessments Encounter Date Diagnosis (ICD Code) Assessment Notes Treatment Notes Treatment Clinical Notes Section Notes 03/08/2024 Encounter for prescription of emergency contraception [...] contraception and emergency contraception information sheet 03/08/2024 Other Discussed STI risks, screening, and [...] Filemon HELTON LDOB:[birth year] (28 yo F)Acc No.[id number]:03/08/2024 Progress Notes Patient:?Filemon HELTON Provider:?Lyndsey Patten NP :1995???Age:28 Y???Sex:Female D ate:03/08/2024 Address:[address] [place], [place] [phone] Subjective: * Chief Complaints: * ???EC * Medical History:? * Medications:?TakingPrenatal Plan B One-Step 1.5 MG Tablet 1 tablet Orally At once Plan B One-Step 1.5 MG Tablet 1 tablet Orally At once Levonorgestrel 1.5 MG Tablet as directed Orally Taking Taking Plan B One-Step 1.5 MG Tablet 1 tablet Orally At once Taking Plan B One-Step 1.5 MG Tablet 1 tablet Orally At once Taking Levonorgestrel 1.5 MG Tablet as directed Orally Objective: * Vitals:? Assessment: * Assessment: 1.?Encounter for prescriptio n of emergency contraception - Z30.012 (Primary)??? Plan: * Treatment: 2.?Others? Notes: Discussed STI risks, screening, and safe sex?? * Procedure Codes:?S4993 Emerg ency Contraception * Billing Information: * Visit Code:? 17555 Existing - Counseling (IN USE). * Procedure Codes:? S4993 Emergency Contraception. * Sign off status: Completed true * Provider:?Lydnsey Patten NP Date:? 025 Generated for Emily sorto/Lc/Andres on:?04/19/2024 03:26 PM EST
[2024-04-19 15:35] VITALS: BP 122/84; PULSE 77; O2SAT 99; BMI 33.2
--- NOTE | 2024-04-19 15:35 | MHC.PC.OV ---
Vital Signs 04/19/24 15:35 Height 4 ft 11 in Weight 164 lb 8 oz BMI 33.2 BP 122/84 Blood Pressure Location Lt brachial Position Sitting Pulse 77 Pulse Source Pulse Oximeter Pulse Oximetry (%) 99 Oxygen Delivery Method Room Air Intake Visit Reasons: Pain in her right hand Sports Athletic Trainer Required: No Accompanied by: Self / Same As Patient Allergies shellfish derived [SHELLFISH DERIVED] Allergy (Mild, Verified 04/19/24 15:45) ITCHING nifedipine Adverse Reaction (Intermediate, Verified 04/19/24 15:45) Headaches Medication List - Last Reconciled 04/19/24 by RICHARD Donovan hydrochlorothiazide 12.5 mg PO DAILY 90 days hydroxyzine HCl 20 mg (2 x 10 mg) PO BEDTIME PRN lamotrigine 25 mg PO DAILY norethindrone (contraceptive) (Kate) 0.35 mg PO DAILY 90 days Tobacco use date assessed: 04/19/24 Dental Screening Dental Screen Date: 04/19/24 Did you have a dental visit in the last 12 months?: Yes Did you have a dental problem in the last 6 months where you did not have access to dental care?: No Was dental information given to patient?: Patient has dentist HPI Pain in her right hand HPI Details Patient is a 29 female with past medical history hypertension, depression, syncope episodes, anemia The patient is presenting today with complaints of right hand pain Reports last her hand got stuck electrical beater. Reports that her first finger was bleeding and stopped reports that the joints her fingers still hurts reports that she has not got back her full strength in the hand reports that the patient is like a 4/10 with use reports that the pain is constant when she is using her right hand reports that it does not hurts if she is not using her right hand reports that she has not taken any medication so far The patient has full ROM, no swelling noted, no discoloration She able to oracle apex developer tightly with right hand, but slightly weaker than left Will try the patient on Meloxicam 15 mg. Discussed with the patient to continue using her hand [facility] Medical History Encounter for screening Excessive thirst H/O partial seizures Anemia Obesity (BMI 30.0-34.9) Surgical History Hx of wisdom tooth extraction Hx of section Family History Mother History of mental problems Brother Hx of bipolar disorder Maternal Aunt History of breast cancer in female Paternal Grandmother Family hx-stroke Maternal Aunt Breast cancer Stomach cancer Social History Household Members: Spouse and Children Housing: Apartment Are you a primary customer care manager to a significant other at home: No Do you presently have visiting nurse or other home services: No Alcohol intake: current Alcohol intake frequency: holidays/special occasions only Patient Tobacco Use Status: Never used Tobacco e-Cigarette/Vaping Use: Never Used Second Hand Smoke Exposure: No service: No 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al status: employed 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: [employer] Cognitive needs: No Hearing needs: No Vision needs: Yes (glasses) Female Reproductive History Menstrual Age of Menarche: 15 Questionnaire PHQ-9 Over the last 2 weeks, how often have you been bothered by any of the following problems? 1. Little interest or pleasure in doing things: several days 2. Feeling down, depressed, or hopeless: nearly every day 3. Trouble falling or staying asleep, or sleeping too much: several days 4. Feeling tired or having little energy: nearly every day 5. Poor appetite or overeating: nearly every day 6. Feeling bad about yourself - or that you are a failure or have let yourself or your family down: not at all 7. Trouble concentrating on things, such as reading the newspaper or watching television: several days 8. Moving or speaking so slowly that other people could have noticed. Or the opposite - being so fidgety or restless that you have been moving around a lot more than usual: not at all 9. Thoughts that you would be better off or of hurting yourself in some way: not at all Total score: 12 Depression Screening Interpretation: Positive Depression Screening Done: Yes 38400 - PHQ-9 Billing: Yes Source: Developed by Drs. Dangelo Artis, Dede Villegas, Austen Paris and colleagues, with an educational ryann from [employer]. Thrive Questionnaire Date Thrive assessed: 04/19/24 I am a: Patient What is your living situation today?: I have a steady place to live Within the past 12 months, did the food you bought not last and you didn't have the money to get more?: Never true Within the past 12 months, did you worry whether your food would run out before you got money to buy more?: Never true Do you have trouble paying for medicines?: No Do you have trouble getting transportation to medical appointments?: No Do you have trouble paying your heating and electricity bill?: No Do you have trouble taking care of your child, family member or friend?: No Do you have trouble with day-to-day activities such as bathing, preparing meals, shopping, managing finances, etc.?: No Are you currently unemployed and looking for a job?: No Are you interested in more education?: No Please select the resources that you would like help with: None Currently or been in a relationship where the following occur: No concerns reported THRIVE Score: 0 AUDIT C Alcohol Use Questionnaire (AUDIT-C) 1. How often do you have a drink containing alcohol?: Monthly or less 2. How many drinks containing alcohol do you have on a typical day when you are drinking?: 1 or 2 3. How often do you have six or more drinks on one occasion?: Never Total Score: 1 EUGENE-7 AMB Questionnaire EUGENE-7 Date EUGENE - 7 assessed: 04/19/24 Feeling nervous, anxious, or on edge: 0 = Not at all Not being able to stop or control worryin = Not at all Worrying too much about different things: 0 = Not at all Trouble relaxin = Not at all Being so restless that it is hard to sit still: 0 = Not at all Becoming easily annoyed or irritable: 0 = Not at all Feeling afraid as if something awful might happen: 0 = Not at all Total EUGENE-7 score (0-4 normal; 5-9 mild; 10-14 moderate; 15-21 severe): 0 Source: Developed by Drs. Dangelo Artis, Dede Villegas, Austen Paris and colleagues, with an educational ryann from [employer]. EUGENE-7 Assessment Billing EUGENE-7 Assessment Tool: EUGENE-7 Assessment 75039 Review of Systems Const Details: Denies chills, Denies fatigue, Denies fever(s), Denies headache(s) and Denies weakness HEENT Denies change in vision, Denies dizziness, Denies headache(s), Denies hearing loss, Denies nasal congestion, Denies sinus pain, Denies sinus pressure and Denies sore throat Card Denies chest pain, Denies lightheadedness, Denies dyspnea and Denies other (palpitations) Resp Denies cough, Denies dyspnea and Denies wheezing GI Denies abdominal pain, Denies melena, Denies hematochezia, Denies change in bowel habits, Denies dyspepsia and Denies nausea Denies hematuria and Denies dysuria Musc Denies abnormal gait, Denies myalgias, +arthralgias right hand/fingers, Denies numbness and Denies tingling Skin/Breast Denies rash, Denies unusual bruising and Denies wounds Neuro Denies abnormal gait, Denies dizziness, Denies headache(s), Denies memory loss, Denies numbness, Denies Sensory deficit (Neuro), Denies tingling and Denies weakness Physical exam (Primary Care) Vital Signs: Last Vital Signs Pulse 77 04/19/24 15:35 BP 122/84 04/19/24 15:35 Pulse Ox 99 04/19/24 15:35 Oxygen Delivery Method Room Air 04/19/24 15:35 BMI result Body Mass Index 33.2 Tobacco/Smoking Status: Tobacco use Status Tobacco use date assessed 04/19/24 04/19/24 15:39 Patient Tobacco Use Status Never used Tobacco 04/19/24 15:39 e-Cigarette/Vaping Use Never Used 04/19/24 15:39 PHQ-9: PHQ-9 Score PHQ-9: Total score 12 04/19/24 15:39 Depression Screening Interpretation: Positive Thrive Assessment: Date of Thrive Assessment Date Thrive assessed 04/19/24 04/19/24 15:39 Currently or been in a relationship where the following occur: No concerns reported Const Other: General: no acute distress, well developed, alert and awake Nutritional Appearance: well nourished Orientation/consciousness: patient oriented x3 HENMT Head: Yes normocephalic and Yes atraumatic Eyes Pupils: Equal, round and reactive pupils present and Pupil accommodation reflex normal EOM: EOMs intact bilaterally Chest Chest palpation & inspection: normal inspection of the chest Resp Effort & Inspection: normal respiratory effort Auscultation: clear to auscultation bilaterally Cardio Rate: regular rate Rhythm: regular rhythm Heart sounds: S1 normal heart sound present, S2 normal heart sound present, no gallops, no murmurs and no rubs MSK: right hand fingers pain with movement and gripping objects. Right slightly weaker than left. No discoloration, no swelling. No red flags noted Neuro General: patient oriented x3, gait normal Cranial nerves: Yes Equal, round and reactive pupils present Cognition (Neuro): normal cognition Gait exam (Neuro): Normal gait present Motor exam (neuro): 5/5 motor strength present throughout Extrem General: Yes normal to inspection, No edema and No calf tenderness Psych Appearance: grossly normal Affect: normal affect Attitude: cooperative Thought process: Normal thought process present Coding Level of Care Code Est Pt Level 3 (41826) Diagnoses Right hand pain M79.641 Additional Codes PHQ-9 - 74725 - PHQ-9 Billing: Yes ([id number]) EUGENE-7 Assessment Billing - EUGENE-7 Assessment Tool: EUGENE-7 Assessment 33783 ([id number]) Time Spent (min) 25 Assessment & Plan Assessment & Plan (1) Right hand pain: Code(s): M79.641 - Pain in right hand Category: Medical Plan: The patient has full ROM, no swelling noted, no discoloration She able to oracle apex developer tightly with right hand, but slightly weaker than left Will try the patient on Meloxicam 15 mg. Discussed with the patient to continue using her hand. Discussed with patient that she cannot take any other NSIDS while she is on this medication Medications: New meloxicam 15 mg PO DAILY 30 tabs 1RF
== END 2024-04-19 15:58 | disposition home or self-care (01) ==
PROVIDERS: PCP Physician Assistant
DX: M79.641 Pain in right hand (principal)

== ENCOUNTER → 2024-04-19 15:24 | Outpatient (BNVA) | payer OTHER, SELFPAY | PROVIDERS: PCP Physician Assistant | DX: M79.641 Pain in right hand (principal) | CPT/HCPCS: 96127; 99212 ==

== ENCOUNTER 2024-05-24 10:07 | Outpatient (AMB) | payer OTHER, SELFPAY ==
--- NOTE | 2024-05-24 10:09 | A.OFFVIS_ITS ---
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 Doing well with boilers inspector concerns: Admits to vaginal irritation and dryness. Has a excessive thirst admits to not hydrating well, is trying to improve hydration. Doing well on [place]. History of elevated blood pressure on a combination OCP. She denies any contraindications to control such as: migraines with aura, history of DVT or pulmonary emboli, liver disease, thrombolic disorders, Lupus, +DANNA, breast cancer, or smoking. STI screening offered; she accepts. She tries to eat healthy and stays active with exercise. Denies family history of ovarian or colon cancer. FH breast cancer- 2 maternal aunts. Last pap smear 2020, negative. [facility] Medical History Encounter for screening Excessive thirst H/O partial seizures Anemia Obesity (BMI 30.0-34.9) Surgical History Hx of wisdom tooth extraction Hx of section Family History Mother History of mental problems Brother Hx of bipolar disorder Maternal Aunt History of breast cancer in female Paternal Grandmother Family hx-stroke Maternal Aunt Breast cancer Stomach cancer Social History Household Members: Spouse and Children Housing: Apartment Are you a primary mall plant caretaker to a significant other at home: No Do you presently have visiting nurse or other home services: No Alcohol intake: current Alcohol intake frequency: holidays/special occasions only Patient Tobacco Use Status: Never used Tobacco e-Cigarette/Vaping Use: Never Used Second Hand Smoke Exposure: No service: No 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al status: employed 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: [employer] Cognitive needs: No Hearing needs: No Vision needs: Yes (glasses) Female Reproductive History Menstrual Age of Menarche: 15 Duration of menses: 6-7 days Date of last menstrual period: 05/15/24 control method: pills Total pregnancies: 4 Full term: 2 Number of Living Children: 2 Ab spontaneous: 2 Date of last pap smear: 06/05/20 (neg 03/06/20 unsat) Review of Systems Const All systems reviewed & are unremarkable except as noted in HPI and below Reports as per HPI Eyes Reports no additional complaints ENT Reports no additional complaints Card Reports no additional complaints Resp Reports no additional complaints GI Reports as per HPI and Reports no additional complaints Reports as per HPI Musc Reports no additional complaints Skin/Breast Reports as per HPI Neuro Reports no additional complaints Psych Reports no additional complaints Endo Reports no additional complaints Albert/Lymph Reports no additional complaints Aller/Immun Reports no additional complaints Physical Exam Vital Signs: Last Vital Signs BP 122/84 05/24/24 10:10 BMI result Body Mass Index 33.1 Const General: cooperative, healthy appearing, no acute distress, well developed and alert Orientation/consciousness: patient oriented x3 HEENT Head: Yes normal to inspection Eyes General: appearance normal, both eyes and all related structures Neck Neck: Yes normal visual inspection Thyroid: Thyroid normal Chest Chest palpation & inspection: normal inspection of the chest and other (no puckering, dimpling, peau de orange, retraction, discharge, masses) Breast/axilla inspection: normal inspection of the breasts Breast/axilla palpation: normal palpation of the breasts Resp Effort & Inspection: normal respiratory effort GI Inspection: Yes normal to inspection and Yes scar Palpation (GI): Soft to palpation Rectal Exam - Female: deferred General: Yes bladder normal to palpation External Female Exam: normal external appearance and normal appearance of the urethra Speculum Exam - Vagina: normal appearance of the vagina, normal palpation and abnormal vaginal discharge frothy Speculum Exam - Cervix: normal appearance of the cervix and normal palpation Bimanual exam- vagina & uterus: normal bimanual exam, normal palpation, uterine size normal, bladder normal to palpation, normal palpation and non-tender Bimanual Exam- Adnexa, other: no masses Skin General skin exam: no rashes or lesions noted Rashes: no rashes Neuro General: patient oriented x3 Cognition (Neuro): normal cognition Extrem General: Yes normal to inspection Psych Attitude: cooperative Thought process: Normal thought process present Assessment & Plan Assessment & Plan (1) Well woman exam with routine gynecological exam: Code(s): Z01.419 - Encounter for gynecological examination (general) (routine) without abnormal findings Category: Medical Plan: Discussed: Current recommendations for pap smears per ASCCP guidelines. Pap smear obtained. Breast awareness and periodic breast exams. Maintain a healthy lifestyle including a well balanced diet and routine exercise. Improve hydration. control hormone use warnings: go to ER if and loss of vision, blindness, severe headache, chest pain or difficulty breathing, severe abdominal pain, or any pain or swelling in an extremity. Declines option for Mirena IUD use. Patient verbalizes understanding and agrees to the plan of care. She was given opportunity to ask questions and all questions were answered to the best of my ability. RTO in one year for annual boilers inspector examination. This note is constructed using voice recognition software. While every effort has been made to ensure accuracy, ice cream freezer helper errors may have been included. (2) Vaginal dryness: Code(s): N89.8 - Other specified noninflammatory disorders of vagina Plan GC chlamydia and BV panel obtained, reviewed use of probiotics, vaginal lubrication and moisturizers. Website pictures reviewed for products selection. Await results for plan of care. Total time I personally spent on visit and management today: ?10 minutes. Time spent included review of pertinent office notes in the electronic health record; review of laboratory and imaging results; review of personal family medical history; performing physical exam; discussing diagnosis and plan of care with the patient; documenting the encounter in the EMR. Orders: Orders Bacterial Vaginosis Panel Today N89.8 - Other specified noninflammatory disorders of vagina Pap Smear Today Z01.419 - Encounter for gynecological examination (general) (routine) without abnormal findings CT NG by PCR Today N89.8 - Other specified noninflammatory disorders of vagina Medications: Refilled norethindrone (contraceptive) (Kate) 0.35 mg PO DAILY 90 days 84 tabs 4RF Coding Level of Care Code Est Pt Level 2 (14630) Est Pt Prev Care 18-39y(34451) Diagnoses Well woman exam with routine gynecological exam Z01.419 Vaginal dryness N89.8
[2024-05-24 10:10] VITALS: BP 122/84; BMI 33.1
--- OUTSIDE RECORDS SUMMARY | 2024-05-24 11:36 | XMS_ITS ---
Author Organization [facility] Address [address] [place] [id number] Care Team Providers Care Speech And Language Clinician Name Role Phone LYNDSEY APTTEN Unavailable [phone] REASON FOR VISIT EC Medications Medication SIG [...] Female Encounters Encounter Location Date Provider Diagnosis [address] [place], [place] [phone] 03/08/2024 LYNDSEY PATTEN Encounter for prescription of [...] Filemon HELTON LDOB:[birth year] (28 yo F)Acc No.[id number]:03/08/2024 Progress Notes Patient:?Filemon HELTON Provider:?Lyndsey Patten NP :1995???Age:28 Y???Sex:Female D ate:03/08/2024 Address:[address] [place], [place] [id number] Subjective: * Chief Complaints: * ???EC * [...] Contraception * Billing Information: * Visit Code:? 42018 Existing - Counseling (IN USE). * Procedure Codes:? S4993 Emergency Contraception. * Sign off status: Completed true * Provider:?Lyndsey Patten NP Date:? 025 Generated for Emily sorto/Lc/Andres on:?05/24/2024 11:36 AM EDT
--- OUTSIDE RECORDS SUMMARY | 2024-05-24 11:37 | XMS_ITS ---
Author Organization [facility] Address [address] [place] [id number] Care Team Providers Care Warrant Server Name Role Phone LYNDSEY PATTEN Unavailable [phone] REASON FOR VISIT EC, Plan B Medications [...] Female Encounters Encounter Location Date Provider Diagnosis [place] [address] [place], [place] [phone] 09/27/2023 LYNDSEY PATTEN Encounter for prescription of [...] Filemon HELTON LDOB:[birth year] (28 yo F)Acc No.[id number]:09/27/2023 Progress Notes Patient:?Filemon HELTON Provider:?Lyndsey Patten NP :1995???Age:28 Y???Sex:Female D ate:09/27/2023 Address:[address] [place], [place] [id number] Subjective: * Chief Complaints: * ???ECPlan B [...] Contraception * Billing Information: * Visit Code:? 33244 Existing - Counseling (IN USE). * Procedure Codes:? S4993 Emergency Contraception. * Sign off status: Completed true * Provider:?Lyndsey Patten NP Date:? 024 Generated for Emily sorto/Lc/Andres on:?05/24/2024 11:37 AM EDT
--- OUTSIDE RECORDS SUMMARY | 2024-05-24 11:37 | XMS_ITS | Patient Health Record ---
Author Organization [facility] Address [address] [facility] [place], [place] [id number] Care Team Providers Care Photo Lab Technician Name Role Phone KAYKAY PATTEN [phone] Reason For Referral No Information Medications Medication [...] Female Encounters Encounter Location Date Provider Diagnosis [address] [id number] 09/27/2023 KAYKAY GABAI Encounter for prescription of emergency contraception Z30.[address] [id number] 03/08/2024 KAYKAY GABAI Encounter for prescription of [...] Insured Coverage Start Date Coverage End Date [place] [address] [place] [id number] Filemon Helton Self - patient is the insured
== END 2024-05-24 11:32 | disposition home or self-care (01) ==
LOC: HO.HWS 10:07
PROVIDERS: PCP Physician Assistant; Visit Provider Advanced Practice Midwife
DX: Z01.419 Encounter for gynecological examination (general) (routine) without abnormal findings (principal); N89.8 Other specified noninflammatory disorders of vagina
CPT/HCPCS: 99395; 99459

== ENCOUNTER 2024-05-24 10:07 | Outpatient (REF) | payer OTHER, SELFPAY ==
[2024-05-24 18:26] LABS: Bacterial Vaginosis PCR NEGATIVE (Negative); Candida Group PCR NOT DETECTED (Not Detect); Candida glab krusei PCR NOT DETECTED (Not Detect); Trichomonas vaginalis PCR NOT DETECTED (Not Detect)
[2024-05-24 21:28] LABS: CT PCR NOT DETECTED (Not Detect.); NG PCR NOT DETECTED (Not Detect.)
== END 2024-05-24 10:08 | disposition home or self-care (01) ==
LOC: HO.LAB 10:07
PROVIDERS: PCP Physician Assistant; Visit Provider Advanced Practice Midwife
DX: Z01.419 Encounter for gynecological examination (general) (routine) without abnormal findings (principal); N89.8 Other specified noninflammatory disorders of vagina
CPT/HCPCS: 81515; 87491; 87591; 99395; 99459

== ENCOUNTER 2024-05-24 10:42 | Outpatient (REF) | payer OTHER, SELFPAY | END 2024-05-24 10:43 | disposition home or self-care (01) | LOC: HO.LNP 10:42 | PROVIDERS: Visit Provider Advanced Practice Midwife | DX: Z01.419 Encounter for gynecological examination (general) (routine) without abnormal findings (principal); N89.8 Other specified noninflammatory disorders of vagina | CPT/HCPCS: 88175 ==

== ENCOUNTER 2024-06-29 11:56 | Outpatient (REF) | payer OTHER, SELFPAY ==
[2024-06-29 12:51] LABS: Hematocrit 32.5 % (37.0-47.0); Mean Corpuscular HGB Conc 30.8 g/dl (31.0-35.0); Mean Corpuscular Hemoglobin 26.9 pg (27.0-33.0); Mean Corpuscular Volume 87.4 fL (80.0-98.0); Mean Platelet Volume 9.4 fL (9.4-12.3); Platelet Count 441 X10*3/uL (160-400); Red Blood Count 3.72 X10*6/uL (4.20-5.50); Red Cell Distribution Width 15.6 % (11.0-16.0); White Blood Count 5.3 X10*3/uL (4.8-10.8)
[2024-06-29 13:41] LABS: Alanine Aminotransferase 23 U/L (0-31); Albumin Level 4.2 g/dL (3.5-5.0); Alkaline Phosphatase 96 U/L (39-117); Anion Gap 11 (12-20); Aspartate Amino Transferase 23 U/L (5-31); Bilirubin Total 0.5 mg/dL (0.0-1.0); Blood Urea Nitrogen 8 mg/dL (9-16); Calcium 9.3 mg/dL (8.4-10.2); Carbon Dioxide 25 mmol/L (22-29); Chloride 107 mmol/L (96-108); Estimated Glomerular Filt Rate > 60; Glucose Fasting 88 mg/dL (60-99); HCG Quantitative < 2 mIU/mL; Potassium 3.8 mmol/L (3.3-5.1); Sodium 139 mmol/L (135-145); Total Protein 7.4 g/dL (6.5-8.0)
[2024-06-29 14:20] LABS: Creatinine Urine 136.92 mg/dL; Microalbum/Creatinine Ratio Ur 5.8 ug/mg cr (<30)
== END 2024-06-29 11:57 | disposition home or self-care (01) ==
LOC: HO.LAB 11:56
PROVIDERS: PCP Physician Assistant; Visit Provider Physician Assistant
DX: D47.3 Essential (hemorrhagic) thrombocythemia (principal); I10 Essential (primary) hypertension; N91.2 Amenorrhea, unspecified
CPT/HCPCS: 36415; 80053; 82043; 82570; 84702; 85027

== ENCOUNTER 2024-07-11 12:57 | Outpatient (AMB) | payer OTHER, SELFPAY ==
--- NOTE | 2024-07-11 13:03 | A.OFFPC_ITS ---
Vital Signs 07/11/24 13:12 Height 4 ft 11 in Weight 167 lb 2 oz BMI 33.8 BP 126/66 Blood Pressure Location Lt brachial Position Sitting Pulse 78 Pulse Source Pulse Oximeter Temp 97.1 F Temp Source Temporal Artery Scan Pulse Oximetry (%) 100 Oxygen Delivery Method Room Air Intake Visit Reasons: annual exam Credit Verification Clerk Required: No Accompanied by: Sister Allergies shellfish derived [SHELLFISH DERIVED] Allergy (Mild, Verified 07/11/24 13:18) ITCHING bupropion [From Wellbutrin] Allergy (Unknown, Verified 07/11/24 13:18) Seizure nifedipine Adverse Reaction (Intermediate, Verified 07/11/24 13:18) Headaches Medication List - Last Reconciled 07/11/24 by Justice Raygoza PA-C hydrochlorothiazide 12.5 mg PO DAILY 90 days hydroxyzine HCl 20 mg (2 x 10 mg) PO BEDTIME PRN lamotrigine 100 mg PO DAILY meloxicam 15 mg PO DAILY norethindrone (contraceptive) (Kate) 0.35 mg PO DAILY 90 days sumatriptan succinate mg PO Tobacco use date assessed: 04/19/24 Dental Screening Dental Screen Date: 04/19/24 HPI annual exam HPI Details Patient is a 29-year-old female here today for an annual physical? Patient has a past medical history significant for generalized anxiety disorder, depression, obesity, iron deficiency anemia. Concern---> patient reports recently being in contact with a person positive for norovirus, has been having nausea. She has pending stool studies to be done. hypertension: Blood pressure acceptable today in office. Patient continues on metoprolol and hydrochlorothiazide with good effect.. .. Depression: She reports her depression has been fairly stable, not further on any antipsychotic medication. Still speaks with a mental health therapist.? Otherwise denies any SI or HI. Iron def anemia:? Noted slightly low hemoglobin, has a history of iron deficiency anemia. She does admit to heavy menstruation bleeding. Will restart iron supplementation. 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 Vaccines: Up-to-date with COVID vaccine, UTD with Tdap . Laboratory Tests 05/06/23 05/06/23 09/14/23 10:09 10:12 10:55 RBC 4.50 3.91 L Hgb 13.1 11.5 L Plt Count Creatinine 0.67 0.69 Iron 50 Beta HCG, Quant Urine Microalbumin 20.0 10/04/23 06/29/24 16:01 12:05 RBC 3.72 L Hgb 10.0 L Plt Count 441 H Creatinine Iron Beta HCG, Quant < 2 < 2 Urine Microalbumin 8.0 [facility] Medical History (Updated 07/11/24 @ 13:34 by Justice Raygoza PA-C) Encounter for screening H/O partial seizures Anemia Surgical History Hx of wisdom tooth extraction Hx of section Family History Mother History of mental problems Brother Hx of bipolar disorder Maternal Aunt History of breast cancer in female Paternal Grandmother Family hx-stroke Maternal Aunt Breast cancer Stomach cancer Social History (Updated 07/11/24 @ 13:20 by Justice Raygoza PA-C) Household Members: Spouse and Children Housing: Apartment Are you a primary daycare teacher to a significant other at home: No Do you presently have visiting nurse or other home services: No Alcohol intake: current Alcohol intake frequency: holidays/special occasions only Patient Tobacco Use Status: Never used Tobacco e-Cigarette/Vaping Use: Never Used Second Hand Smoke Exposure: No service: No 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al status: unemployed Cognitive needs: No Hearing needs: No Vision needs: Yes (glasses) Female Reproductive History Menstrual Age of Menarche: 15 Questionnaire PHQ-9 Over the last 2 weeks, how often have you been bothered by any of the following problems? 1. Little interest or pleasure in doing things: several days 2. Feeling down, depressed, or hopeless: not at all 3. Trouble falling or staying asleep, or sleeping too much: more than half the days 4. Feeling tired or having little energy: more than half the days 5. Poor appetite or overeating: several days 6. Feeling bad about yourself - or that you are a failure or have let yourself or your family down: not at all 7. Trouble concentrating on things, such as reading the newspaper or watching television: several days 8. Moving or speaking so slowly that other people could have noticed. Or the opposite - being so fidgety or restless that you have been moving around a lot more than usual: not at all 9. Thoughts that you would be better off or of hurting yourself in some way: not at all Total score: 7 Depression Screening Interpretation: Positive Depression Screening Follow-up: Existing condition Depression Screening Done: Yes 69820 - PHQ-9 Billing: Yes Source: Developed by Drs. Dangelo Artis, Dede Villegas, Austen Paris and colleagues, with an educational ryann from [employer]. Thrive Questionnaire Date Thrive assessed: 07/11/24 I am a: Patient What is your living situation today?: I do not have a steady places to live I am temporarily staying with others Within the past 12 months, did the food you bought not last and you didn't have the money to get more?: Never true Within the past 12 months, did you worry whether your food would run out before you got money to buy more?: Never true Do you have trouble paying for medicines?: No Do you have trouble getting transportation to medical appointments?: No Do you have trouble paying your heating and electricity bill?: No Do you have trouble taking care of your child, family member or friend?: No Do you have trouble with day-to-day activities such as bathing, preparing meals, shopping, managing finances, etc.?: No Are you currently unemployed and looking for a job?: Yes Are you interested in more education?: No Please select the resources that you would like help with: None Currently or been in a relationship where the following occur: No concerns reported THRIVE Score: 1 AUDIT C Alcohol Use Questionnaire (AUDIT-C) 1. How often do you have a drink containing alcohol?: Never 3. How often do you have six or more drinks on one occasion?: Never Total Score: 0 EUGENE-7 AMB Questionnaire EUGENE-7 Date EUGENE - 7 assessed: 07/11/24 Feeling nervous, anxious, or on edge: 0 = Not at all Not being able to stop or control worryin = Not at all Worrying too much about different things: 0 = Not at all Trouble relaxin = More than half the days Being so restless that it is hard to sit still: 0 = Not at all Becoming easily annoyed or irritable: 2 = More than half the days Feeling afraid as if something awful might happen: 0 = Not at all Total EUGENE-7 score (0-4 normal; 5-9 mild; 10-14 moderate; 15-21 severe): 4 Source: Developed by Drs. Dangelo Artis, Dede Villegas, Austen Paris and colleagues, with an educational ryann from [employer]. EUGENE-7 Assessment Billing EUGENE-7 Assessment Tool: EUGENE-7 Assessment 75982 Review of Systems Const Denies body aches, Denies chills, Denies excessive sweating, Denies fatigue, Denies fever(s) and Denies headache(s) Eyes Denies blurry vision ENT Denies dysphagia, Denies vertigo, Denies dizziness, Denies headache(s), Denies hearing loss and Denies tinnitus Card Denies chest pain, Denies chest pain with activity, Denies syncope, Denies irregular heart rhythm and Denies dyspnea Resp Denies chest congestion, Denies cough, Denies hemoptysis, Denies dyspnea and Denies wheezing GI Denies abdominal pain, Denies melena, Denies hematochezia, Denies coffee ground emesis, Denies dysphagia, Denies diarrhea, Denies nausea and Denies vomiting Denies urinary frequency, Denies dysuria, Denies urinary hesitancy and Denies urinary urgency Musc Denies arthralgias, Denies limited range of motion, Denies muscle cramps and Denies muscle weakness Skin/Breast Denies rash and Denies skin ulcer Neuro Denies Abnormal speech present, Denies confusion, Denies vertigo, Denies dizziness, Denies syncope, Denies headache(s), Denies memory loss and Denies seizure-like activity Psych Denies anxiety, Denies confusion, Denies depression, Denies memory loss, Denies panic attacks and Denies paranoia Endo Denies excessive sweating, Denies fatigue, Denies flushing, Denies polydipsia and Denies polyuria Aller/Immun Denies wheezing Physical exam (Primary Care) Vital Signs: Last Vital Signs Temp 97.1 F 07/11/24 13:12 Pulse 78 07/11/24 13:12 BP 126/66 07/11/24 13:12 Pulse Ox 100 07/11/24 13:12 Oxygen Delivery Method Room Air 05/13/25 13:12 BMI result Body Mass Index 33.8 Tobacco/Smoking Status: Tobacco use Status Tobacco use date assessed 04/19/24 07/11/24 13:05 Patient Tobacco Use Status Never used Tobacco 07/11/24 13:05 e-Cigarette/Vaping Use Never Used 07/11/24 13:05 PHQ-9: PHQ-9 Score PHQ-9: Total score 7 07/11/24 13:05 Depression Screening Interpretation: Positive Depression Screening Follow-up: Existing condition Thrive Assessment: Date of Thrive Assessment Date Thrive assessed 07/11/24 07/11/24 13:05 Currently or been in a relationship where the following occur: No concerns reported Const General: cooperative, comfortable, no acute distress, alert and awake; No confusion Orientation/consciousness: oriented to person, oriented to place, patient oriented x3 and No confusion HENMT Head: Yes normocephalic Ears: external ears normal and TM's normal bilaterally Face and sinus: No sinus tenderness Mouth: Normal oral and palatal mucosa present and tongue normal Teeth and gingiva: dentition normal and gingiva normal Throat: Yes posterior oropharynx normal, Yes tonsils normal and Yes uvula midline Eyes Conjunctivae: conjunctivae normal Sclerae: sclerae normal Pupils: Equal, round and reactive pupils present EOM: EOMs intact bilaterally Direct Ophthalmoscopy: No no photophobia Neck Neck: Yes no lymphadenopathy, No tender and Yes no JVD Thyroid: Thyroid normal Carotids: no bruits Chest Chest palpation & inspection: no tenderness Resp Effort & Inspection: normal respiratory effort, no audible wheezes, not labored and no stridor Auscultation: no crackles, no rales, no rhonchi and no wheezes Cardio Jugular venous distension: no JVD Rate: regular rate, not bradycardic and not tachycardic Rhythm: regular rhythm Bruits: no carotid bruits Peripheral pulses: Peripheral pulses 2+ throughout GI Inspection: Yes normal to inspection, No abdominal wall ecchymosis and No visible herniation Palpation (GI): Soft to palpation, nontender, no guarding, not rigid and No hepatosplenomegaly present Auscultation: normoactive bowel sounds General: Yes no CVA tenderness Back/Spine/Pelvis Back: no CVA tenderness and No back tenderness Cervical Spine: cervical ROM normal Thoracic/Lumbar Spine: thoracic and lumbar spine normal to inspection, straight leg raise negative bilaterally, No thoraco-lumbar ROM limited and No lumbar spinal tenderness Skin Lesions: no lesions Rashes: no rashes Wounds: no wounds Neuro General: oriented to person, oriented to place, patient oriented x3, CN's II-XI intact bilaterally and No confusion Cranial nerves: Yes Equal, round and reactive pupils present and Yes Normal accommodation reflex present Cognition (Neuro): normal cognition Speech: No Abnormal speech present Gait exam (Neuro): Normal gait present Motor exam (neuro): 5/5 motor strength present throughout Extrem Right upper extremity: full ROM; no cyanosis Left upper extremity: full ROM; no cyanosis Right lower extremity: no edema Left lower extremity: no edema Psych Appearance: grossly normal Mental Status: mental status grossly normal Affect: normal affect Attitude: cooperative Thought process: Normal thought process present Coding Level of Care Code Est Pt Prev Care 18-39y([id number]) Diagnoses Annual physical exam Z00.00 Primary hypertension I10 Hypertension type: primary hypertension MDD (major depressive disorder), recurrent episode, mild F33.0 Iron deficiency anemia, unspecified iron deficiency anemia type D50.9 Anemia type: iron deficiency Iron deficiency anemia type: unspecified iron deficiency Class 1 obesity E66.811 Additional Codes EUGENE-7 Assessment Billing - EUGENE-7 Assessment Tool: EUGENE-7 Assessment 79561 ([id number]) PHQ-9 - 17688 - PHQ-9 Billing: Yes ([id number]) Assessment & Plan Assessment & Plan (1) Annual physical exam: Code(s): Z00.00 - Encounter for general adult medical examination without abnormal findings Category: Medical Plan: As per HPI (2) HTN (hypertension): Code(s): I10 - Essential (primary) hypertension Category: Medical Qualifiers: Hypertension type: primary hypertension Qualified Code(s): I10 - Essential (primary) hypertension Plan: Patient's blood pressure acceptable today in office. Using hydrochlorothiazide 12.5 mg for her extremity swelling which has been effective. (3) MDD (major depressive disorder), recurrent episode, mild: Code(s): F33.0 - Major depressive disorder, recurrent, mild Category: Medical Plan: Patient's PHQ-9 score positive for depression which has been existing condition for her. She does speak with a mental health therapist. (4) Anemia: Code(s): D64.9 - Anemia, unspecified Category: Medical Qualifiers: Anemia type: iron deficiency Iron deficiency anemia type: unspecified iron deficiency Qualified Code(s): D50.9 - Iron deficiency anemia, unspecified Plan: Patient noted to have anemia, has seen Hematology in the past for thrombocytosis related to an iron-deficiency anemia. Was previously on oral iron supplementation. Will restart 1 tablet daily of iron supplementation. She will increase her iron rich foods in her diet. (5) Class 1 obesity: Code(s): E66.811 - Obesity, class 1 Category: Medical Plan: Patient does understand her BMI is over 30 will work on being more physically active and adapting to better eating habits to reduce her weight Orders: Orders Comprehensive [place]. Panel Fast Today I10 - Essential (primary) hypertension Complete Blood Count no Diff Today D50.9 - Iron deficiency anemia, unspecified IRON PROFILE Today D50.9 - Iron deficiency anemia, unspecified Medications: New ferrous sulfate 325 mg PO DAILY 90 days 90 tabs 1RF D50.9 - Iron deficiency a nemia, unspecified sumatriptan succinate take 1 tab at onset of headache; if no relief may repeat 1 tab after at least 2 hrs; max = 4 tabs/24 hr PO 30 days 9 tabs 4RF G43.909 - Migraine, unspecified, not intractable, without status migrainosus Refilled meloxicam 15 mg PO DAILY 30 tabs 1RF hydrochlorothiazide 12.5 mg PO DAILY 90 days 90 tabs 1RF I10 - Essential (primary) hypertension
[2024-07-11 13:12] VITALS: BP 126/66; PULSE 78; TEMP 36.2; O2SAT 100; BMI 33.8
--- OUTSIDE RECORDS SUMMARY | 2024-07-11 13:59 | XMS_ITS ---
Author Organization [facility] Address [address] [facility] [address] [place], [place] [id number] Care Team Providers Care Cadastral Surveyor Name Role Phone Stacy Jovel [phone] Allergies Allergen (clinical drug ingredient) Drug/Non Drug Allergy documented on EMR Reaction Allergy Type Onset Date Status Shellfish (FN) Shellfish-derived Products Unknown Drug Allergy Active Results Component Value Reference Range Notes T pallidum Screening [place] -127854 (Not yet reviewed by provider) Interpretation: Performing Lab:[facility] [place], [address], [address], [employer], Phone - [phone], Director - [facility] Notes/Report: T pallidum Antibodies Non Reactive Non Reactive HIV Ab/p24 Ag with Reflex-[id number] (Not yet reviewed by provider) Interpretation: Performing Lab:[facility] [place], [address], [address], [employer], Phone - [phone], Director - [facility] Notes/Report: HIV Ab/p24 Ag Screen Non Reactive Non Reactive HIV-1/HIV-2 antibodies and HIV-1 p24 antigen were NOT detected. There is no laboratory evidence of HIV infection. HIV Negative HCV Antibody RFX to Quant PC [id number] (Not yet reviewed by provider) Interpretation: Performing Lab:[facility] [place], [address], [address], [employer], Phone - [phone], Director - [facility] Notes/Report: HCV Ab Non Reactive Non Reactive Interpretation: Not infected with HCV unless early or acute infection is suspected (which may be delayed in an immunocompromised individual), or other evidence exists to indicate HCV infection. REASON FOR VISIT Counseling/Testing Medications Medication SIG (Take, Route, Frequency, Duration) Notes Start Date End Date Status Levonorgestrel 1.5 MG as directed Orally Not-Taking Plan B One-Step 1.5 MG 1 tablet Orally A t once for 1 days 08/28/2020 Not-Taking Plan B One-Step 1.5 MG 1 tablet Orally A t once for 1 days 05/01/2022 Not-Taking lamoTRIgine Active Not-Taking Levonorgestrel 1.5 MG as directed Orally Not-Taking Social History Sex Assigned At : Social History Observation Description Sex Assigned At Female Encounters Encounter Location Date Provider Diagnosis [facility] [address] [place] [address] [place], [place] [id number] 07/07/2024 Stacy Jovel Encounter for screening for infections with a predominantly sexual mode of transmission Z11.3 ; Counseling, unspecified Z71.9 ; Other problems related to lifestyle Z72.89 ; HIV Screening Z11.4 and Screening for other viral diseases Z11.59 Assessments Encounter Date Diagnosis (ICD Code) Assessment Notes Treatment Notes Treatment Clinical Notes Section Notes 07/07/2024 Encounter for screening for infections with a predominantly sexual mode of transmission (ICD-10 - Z11.3) Discussed STI risks, screenings that are available through [facility] and safe sex. Clt aware of lab processing ti.mes and how to view results on portal and how positive results will be communicated. HIV, RPR, HCV, GC/CT/T- anal, oral, and urine testing requested. All questions and concerns addressed. RTC for testing within the week. Spent 10 minutes doing the following: Chart Prep Obtaining/r eviewing history Counseling/ Coordinatio n of Care Documenting the visit Educating the patient Ordering medication/ test/proced ures Established Patient: [id number] 10 Minutes 07/07/2024 Counseling, unspecified (ICD-10 - Z71.9) Spent 10 minutes doing the following: Chart Prep Obtaining/r eviewing history Counseling/ Coordinatio n of Care Documenting the visit Educating the patient Ordering medication/ test/proced ures Established Patient: [id number] 10 Minutes 07/07/2024 Other problems related to lifestyle (ICD-10 - Z72.89) Spent 10 minutes doing the following: Chart Prep Obtaining/r eviewing history Counseling/ Coordinatio n of Care Documenting the visit Educating the patient Ordering medication/ test/proced ures Established Patient: 79213 10 Minutes 07/07/2024 HIV Screening (ICD-10 - Z11.4) Spent 10 minutes doing the following: Chart Prep Obtaining/r eviewing history Counseling/ Coordinatio n of Care Documenting the visit Educating the patient Ordering medication/ test/proced ures Established Patient: 55754 10 Minutes 07/07/2024 Screening for other viral diseases (ICD-10 - Z11.59) Spent 10 minutes doing the following: Chart Prep Obtaining/r eviewing history Counseling/ Coordinatio n of Care Documenting the visit Educating the patient Ordering medication/ test/proced ures Established Patient: 44605 10 Minutes Plan Of Treatment Treatment Notes Assessment Notes Encounter for screening for infections with a predominantly sexual mode of transmission Discussed STI risks, screenings that are available through [facility] and safe sex. Clt aware of lab processing ti.mes and how to view results on portal and how positive results will be communicated. HIV, RPR, HCV, GC/CT/T- anal, oral, and urine testing requested. All questions and concerns addressed. RTC for testing within the week. Pending Test Test Name Order Date T pallidum Screening [place]-[id number] 10/2024 HIV Ab/p24 Ag with Reflex-[id number] HCV Antibody RFX to Quant [id number] 10/2024 Ct, Ng, Trich vag by CHELSEY-[id number] 07/08/19 25 Ct/GC [facility], Rectal-[id number] 07/07/2024 Ct/GC [facility], Pharyngeal-[id number] 07/07/2024 Next Appt Details Follow Up: prn, Reason: Progress Notes * Filmeon HELTON LDOB:[birth year] (29 yo F)Acc No.[id number]:07/07/2024 Patient:?Filemon HELTON Provider:?Stacy Jovel CNM :1995???Age:29 Y???Sex:Female D ate:07/07/2024 Address:[address] [place], [place] [id number] Subjective: * Chief Complaints: * ???Counseling/Testing * HPI: ???Visit Narrative:?Reason for the visit:?routine sti testing?.?Current form of control:?oral pills?.?Presenting Symptoms:?none?.?LMP:?06/13/24.?Last date of UPI:?07/04/24.?Other Notes for the Clinician:?clt presneting for routine sti testing no sxs of concern today?.? Today's visit conducted over the phone. Clt verbalized being in a safe space for today's visit. All medical questions and exam questions self reported by the Clt. Filemon is a yo AFAB person who presents today for routine STI testing. No sxs, just for peace of mind. No other topics of concern to discuss today. * ROS:?See above HPI. 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 control:?oral contraceptive pill.?Last menstrual period:?06/13/24.?Menarche: ?Age of menarche?15 ???Periods:?every month.?Sexual activity:?currently sexually active, with men.?Sexually Transmitted Diseases (STDs):?none.?Unprotected sex in the last 5 days?:?yes.?Unprotected sex in the past 10 days?:?yes.? * OB History:?Total pregnancies:?4.?Total living children:?2.?Miscarriage(s):?2.? * Surgical History:?c section x 2 * Hospitalization/Major Diagno stic Procedure:?No Hospitalization History. * Social History:?Food Access:?Food Access?The Client's current access to food is?Secure Food Access ???Housing:?Housing?The client's current living situation is:?stable housing ???Reproductive Life Plan:?Reproductive Life Plan?Do you want to have children??No ?How sure are you that you will be able to use your control method without any problems??Sure ???Sexual History:?Sexual History?Sexual History Reviewed:?Partners, Practices, Protection/Past STIs ?Currently sexually active??Yes ?Sexually active with:?Men ?Number of male partners?1 ?Your sexual activities include:?oral intercourse, vaginal intercourse ?Do you use condoms??No ?Date of last unprotected intercourse:?07/04/2024 ?Number of partners in past 3 months:?2 ?Number of partners in past year:?3 ?Does your partner(s) currently have any STIs??No ?Completed Gardasil vaccination series??Yes ???HIV Risk Assessment:?Additional Questions?Is an HIV Risk Assessment being conducted??Yes ?Have you been tested for HIV before??Yes ?Did you have a blood transfusion prior to 1985??No ?Do you have an unlicensed body piercing or tattoo??No ???PrEP for HIV:?PrEP for HIV?Is the client interested in beginning/continuing PrEP for HIV??No ???Relationships:?Relationships?Has the client experienced any of the following:?Client has never experienced harmful relationships ???Human Trafficking:?Human Trafficking?Experienced:?No ???Tobacco Use:?Tobacco Use?Do you/have you used tobacco??No ???Drugs/Alcohol:?DO NOT USE Drug/Alcohol Use?Do you or have you used drugs or alcohol??No, neither drugs nor alcohol ?Drug/Alcohol Use?Do you or have you used drugs??No ?Do you or have you used alcohol??No ???Counseling Provided:?Counseling Provided?Please indicate the length of time, in minutes, that counseling was provided.?7 ?Counseling Was Provided By:?chrsan * Medications:?TakinglamoTRIgi ne Taking lamoTRIgine Not-Taking/PRNPrenatal Plan B One-Step 1.5 MG Tablet 1 tablet Orally At once Plan B One-Step 1.5 MG Tablet 1 tablet Orally At once Levonorgestrel 1.5 MG Tablet as directed Orally Levonorgestrel 1.5 MG Tablet as directed Orally Not-Taking/PRN Not-Taking/PRN Plan B One-Step 1.5 MG Tablet 1 tablet Orally At once Not-Taking/PRN Plan B One-Step 1.5 MG Tablet 1 tablet Orally At once Not-Taking/PRN Levonorgestrel 1.5 MG Tablet as directed Orally Not-Taking/PRN Levonorgestrel 1.5 MG Tablet as directed Orally * Allergies:?Shellfish-derived Productsno[Allergies Verified] Objective: * Vitals:? * Examination: ???General Examination: ?GENERAL APPEARANCE:?pleasant, in no acute distress.?PSYCH:?alert, oriented.? Assessment: * Assessment: 1.?Encounter for screening f or infections with a predominantly sexual mode of transmission - Z11.3 (Primary)???2.?Counseling, unspecified - Z71.9???3.?Other problems related to lifestyle - Z72.89???4.?HIV Screening - Z11.4?? 5.?Screening for other viral diseases - Z11.59??? Spent 10 minutes doing the f ollowing: Chart Prep Obtaining/reviewing history Counseling/Coordination of Care Documenting the visit Educating the patient Ordering medication/test/procedures Established Patient: [id number] 10 Minutes Plan: * Treatment: 2.?HIV Screening?LAB: HIV Ab/p24 Ag with Reflex-[id number] (Collection Date & Time - 07/07/2024 12:16 PM) 3.?Screening for other viral diseases?LAB: HCV Antibody RFX to Quant [id number] (Collection Date & Time - 07/07/2024 12:18 PM) * Procedure Codes:? * Follow Up:?prn * Billing Information: * Visit Code:? 94406 Existing - Low Complexity (IN USE). * Procedure Codes:? * Sign off status: Completed true * Provider:?Stacy Jovel CNM Date:? 07/07/2024 Generated for Printi ng/Lc/eTransmitting on:?07/11/2024 01:59 PM EDT History and Physical Notes * HPI (History of Present Illness) Category Sub-Category Detail Notes Category Not es Visit Narrative Reason for the visit: routine sti test ing Today's visit conducted over the phone. Clt verbalized being in a safe space for today's visit. All medical questions and exam questions self reported by the Clt. Filemon is a yo AFAB person who presents today for routine STI testing. No sxs, just for peace of mind. No other topics of concern to discuss today. Current form of control: oral pill s Presenting Symptoms: none Other Notes for the Clinician: clt presn eting for routine sti testing no sxs of concern today LMP: 06/13/24 Last date of UPI: 07/04/24 Examination Category Sub-Category Detail Notes Category Not es General Examination GENERAL APPEARANCE: pleasant, in n o acute distress PSYCH: alert, oriented
--- OUTSIDE RECORDS SUMMARY | 2024-07-11 13:59 | XMS_ITS | Patient Health Record ---
Author Organization [facility] Address [address] [facility] [address] [place], [place] [id number] Care Team Providers Care Placement Director Name Role Phone KAYKAY PATTEN Unavailable [phone] Stacy Jovel Unavailable [phone] Allergies Allergen (clinical drug ingredient) Drug/Non Drug Allergy documented on EMR Reaction Allergy Type Onset Date Status Shellfish (FN) Shellfish-derived Products Unknown Drug Allergy Active Results Component Value Reference Range Notes T pallidum Screening [place] -[id number] (Not yet reviewed by provider) Interpretation: Performing Lab:[facility] [place], [address], [address], [place], Phone - [phone], [facility] Notes/Report: T pallidum Antibodies Non Reactive Non Reactive HIV Ab/p24 Ag with Reflex-[id number] (Not yet reviewed by provider) Interpretation: Performing Lab:[facility] [place], [address], [address], [place], Phone - [phone], [facility] Notes/Report: HIV Ab/p24 Ag Screen Non Reactive Non Reactive HIV-1/HIV-2 antibodies and HIV-1 p24 antigen were NOT detected. There is no laboratory evidence of HIV infection. HIV Negative HCV Antibody RFX to Quant PC [id number] (Not yet reviewed by provider) Interpretation: Performing Lab:[facility] [place], [address], [address], [place], Phone - [phone], [facility] Notes/Report: HCV Ab Non Reactive Non Reactive Interpretation: Not infected with HCV unless early or acute infection is suspected (which may be delayed in an immunocompromised individual), or other evidence exists to indicate HCV infection. Reason For Referral No Information Medications Medication SIG (Take, Route, Frequency, Duration) Notes Start Date End Date Status Levonorgestrel 1.5 MG as directed Orally Not-Taking Levonorgestrel 1.5 MG as directed Orally Not-Taking Plan B One-Step 1.5 MG 1 tablet Orally A t once for 1 days 08/28/2020 Not-Taking Plan B One-Step 1.5 MG 1 tablet Orally A t once for 1 days 05/01/2022 Not-Taking lamoTRIgine Active Not-Taking Social History Sex Assigned At : Social History Observation Description Sex Assigned At Female Encounters Encounter Location Date Provider Diagnosis [facility] [address] [place] [phone] 09/27/2023 KAYKAY GABAI Encounter for prescription of emergency contraception Z30.012 [facility] [address] [place] [id number] 03/08/2024 KAYKAY GABAI Encounter for prescription of emergency contraception Z30.012 [facility] [phone] 07/07/2024 Stacy Jovel Encounter for screening for [...] emergency contraception and emergency contraception information sheet 07/07/2024 Encounter for screening for infections with [...] patient Ordering medication/ test/proced ures Established Patient: [id number] 10 Minutes 07/07/2024 Counseling, unspecified (ICD-10 - Z71.9) Spent 10 minutes doing the following: Chart Prep Obtaining/r eviewing history Counseling/ Coordinatio n of Care Documenting the visit Educating the patient Ordering medication/ test/proced ures Established Patient: 31551 10 Minutes 07/07/2024 Other problems related to lifestyle (ICD-10 - Z72.89) Spent 10 minutes doing the following: Chart Prep Obtaining/r eviewing history Counseling/ Coordinatio n of Care Documenting the visit Educating the patient Ordering medication/ test/proced ures Established Patient: 65104 10 Minutes 07/07/2024 HIV Screening (ICD-10 - Z11.4) Spent 10 minutes doing the following: Chart Prep Obtaining/r eviewing history Counseling/ Coordinatio n of Care Documenting the visit Educating the patient Ordering medication/ test/proced ures Established Patient: 93324 10 Minutes 07/07/2024 Screening for other viral diseases (ICD-10 - Z11.59) Spent 10 minutes doing the following: Chart Prep Obtaining/r eviewing history Counseling/ Coordinatio n of Care Documenting the visit Educating the patient Ordering medication/ test/proced ures Established Patient: [id number] 10 Minutes 09/27/2023 Other Discussed STI risks, screening, and safe sex 03/08/2024 Other Discussed STI risks, screening, and safe sex Plan Of Treatment Pending Test Test Name Order Date T pallidum Screening [place]-[id number] 10/2024 HIV Ab/p24 Ag with Reflex-[id number] 025 HCV Antibody RFX to Quant [id number] 10/2024 Ct, Ng, Trich vag by CHELSEY-[id number] 07/08/19 25 Ct/GC [facility], Rectal-[id number] 07/07/2024 Ct/GC [facility], Pharyngeal-[id number] 07/07/2024 Insurance Providers Payer Name Payer Address Payer Phone Subscriber Number Group Number Insured Name Patient Relationship to Insured Coverage Start Date Coverage End Date [place]ICA[place] ATT CLAIMS [address] [place] [id number] Filemon Helton Self - patient is the insured Medical (General) History Surgical History Surgery Date(Month/Year) c section x 2
== END 2024-07-11 13:32 | disposition home or self-care (01) ==
LOC: HO.HMCH 12:58
PROVIDERS: PCP Physician Assistant; Visit Provider Physician Assistant
DX: Z00.00 Encounter for general adult medical examination without abnormal findings (principal); I10 Essential (primary) hypertension; E66.811 Obesity, class 1; Z68.33 Body mass index [BMI] 33.0-33.9, adult; F33.0 Major depressive disorder, recurrent, mild; D50.9 Iron deficiency anemia, unspecified

== ENCOUNTER → 2024-07-11 12:57 | Outpatient (BNVA) | payer OTHER, SELFPAY | PROVIDERS: PCP Physician Assistant; Visit Provider Physician Assistant | DX: Z00.00 Encounter for general adult medical examination without abnormal findings (principal); I10 Essential (primary) hypertension; F33.0 Major depressive disorder, recurrent, mild; D50.9 Iron deficiency anemia, unspecified; E66.811 Obesity, class 1; Z68.33 Body mass index [BMI] 33.0-33.9, adult; Z79.899 Other long term (current) drug therapy | CPT/HCPCS: 96127; 99395 ==

== ENCOUNTER 2024-09-30 09:24 | Outpatient (REF) | payer OTHER, SELFPAY ==
[2024-10-01 11:43] LABS: Chlamydia pneumoniae PCR Not Detected (Not Detect.); Coronavirus 229E PCR Not Detected (Not Detect.); Coronavirus HKU1 PCR Not Detected (Not Detect.); Coronavirus NL63 PCR Not Detected (Not Detect.); Coronavirus OC43 PCR Not Detected (Not Detect.); RSV PCR Not Detected (Not Detect.); Rhino/Enterovirus PCR Detected (Not Detect.)
[2024-10-01 12:39] LABS: Influenza A H1 PCR Not Detected (Not Detect.); Influenza A H1-2009 PCR Not Detected (Not Detect.); Influenza A H3 PCR Not Detected (Not Detect.); SARS-CoV-2 PCR Not Detected (Not Detect.)
== END 2024-09-30 09:25 | disposition home or self-care (01) ==
LOC: HO.LNP 09:24
PROVIDERS: PCP Physician Assistant; Visit Provider Physician Assistant Medical
DX: J06.9 Acute upper respiratory infection, unspecified (principal)
CPT/HCPCS: 87633

== ENCOUNTER 2024-09-30 09:24 | Outpatient (AMB) | payer OTHER, SELFPAY ==
[2024-09-30 09:44] VITALS: BP 114/68; PULSE 85; RESP 16; TEMP 36.6; O2SAT 100; BMI 34.7
--- NOTE | 2024-09-30 09:44 | MHC.OFFWIV ---
Intake Vital Signs 09/30/24 09:44 Height 4 ft 11 in Weight 172 lb BMI 34.7 BP 114/68 Blood Pressure Location Rt brachial Position Sitting Respiration 16 Pulse 85 Pulse Source Pulse Oximeter Temp 97.9 F Temp Source Oral Pulse Oximetry (%) 100 Oxygen Delivery Method Room Air Intake Visit Reasons: EP Brain fog, headaches, congestion, vision change Intake Note: Pt is here today c/o brain fog,H/A, nasal congestion with vision change x1mo. Patient Tobacco Use Status: Never used Tobacco Allergies shellfish derived (SHELLFISH DERIVED) Allergy (Mild, Verified 09/30/24 09:47) ITCHING bupropion (From Wellbutrin) Allergy (Unknown, Verified 09/30/24 09:47) Seizure nifedipine Adverse Reaction (Intermediate, Verified 09/30/24 09:47) Headaches HPI HPI Comments History of Present Illness Details This is a 29-year-old female with history of absence seizures, chronic migraine disorder who presented to the walk-in clinic with concerning neurological symptoms. Patient states for the past 1 month, she has been having nonspecific neurological symptoms such as ?brain fog? and feeling as though her brain is pushing out of her skull?. She reports feeling mentally and physically exhausted. She reports associated tingling of her forehead and skull, which has been increasing in frequency. She started to develop severe head pressure about 3 days ago and felt as though her ?brain was dripping like a faucet?. She states she was driving home from work the other day and her ?vision went black?. She states this has happened a few times over the past several days. She states she felt physically exhausted when this happened but does not believe that she fell asleep. She is unsure if she suffered a syncopal episode. She stated that she was driving and she started losing her vision until it went completely black. This lasted for a few seconds while driving and she had to jerk her car when her vision returned. She states this is the 1st time that this has happened since her symptoms began 1 month ago although she has been feeling like her vision has been going ?out of focus intermittently over the past 1 month. Patient states she has also been having some temporal headaches, which have not been relieved with her home sumatriptan. Patient also has a history of absence seizures and she is followed by a neurologist. She states she called her neurologist office and she has an appointment for the end of September. She denies any associated facial asymmetry or slurred speech. She denies any unilateral numbness/weakness/paresthesias of her extremities. She denies any thunderclap headaches or the worst headache of her life. She reports some issues with gestational hypertension but her blood pressures have been within normal limits lately. [facility] Medical History (Updated 07/11/24 @ 13:34 by Justice Raygoza PA-C) Encounter for screening H/O partial seizures Anemia Surgical History Hx of wisdom tooth extraction Hx of section Family History Mother History of mental problems Brother Hx of bipolar disorder Maternal Aunt History of breast cancer in female Paternal Grandmother Family hx-stroke Maternal Aunt Breast cancer Stomach cancer Social History (Updated 07/11/24 @ 13:20 by Justice Raygoza PA-C) Household Members: Spouse and Children Housing: Apartment Are you a primary date night caregiver to a significant other at home: No Do you presently have visiting nurse or other home services: No Alcohol intake: current Alcohol intake frequency: holidays/special occasions only Patient Tobacco Use Status: Never used Tobacco e-Cigarette/Vaping Use: Never Used Second Hand Smoke Exposure: No service: No 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al status: unemployed Cognitive needs: No Hearing needs: No Vision needs: Yes (glasses) Female Reproductive History Menstrual Age of Menarche: 15 Review of Systems Const All systems reviewed & are unremarkable except as noted in HPI and below Reports no additional complaints Eyes Reports no additional complaints ENT Reports no additional complaints Card Reports no additional complaints Resp Reports no additional complaints GI Reports no additional complaints Reports no additional complaints Musc Reports no additional complaints Skin/Breast Reports system reviewed and no additional complaints, except as documented Neuro Reports no additional complaints Psych Reports no additional complaints Endo Reports no additional complaints Albert/Lymph Reports no additional complaints Aller/Immun Reports no additional complaints Physical Exam Vital Signs: Last Vital Signs Temp 97.9 F 09/30/24 09:44 Pulse 85 09/30/24 09:44 Resp 16 09/30/24 09:44 BP 114/68 09/30/24 09:44 Pulse Ox 100 09/30/24 09:44 Oxygen Delivery Method Room Air 09/30/24 09:44 BMI result Body Mass Index 34.7 Const Other: Vital signs reviewed. Constitutional: Non-toxic appearing. No acute distress. Well-developed and well-nourished. HEENT: Normocephalic and atraumatic. Pupils are equal, round, and reactive to light. Extraocular movements are intact. Skin: Warm and dry. No rashes or lesions noted. Neck: Full and painless range of motion. No cervical lymphadenopathy. Cardio: Regular rate and rhythm. No murmurs, gallops, or rubs. No lower extremity edema. No JVD. Pulmonary: No respiratory distress. No accessory muscle usage. Clear to auscultation bilaterally without wheezing, crackles, or rhonchi. Gastrointestinal: Soft, nontender, and nondistended in all 4 quadrants. Normoactive bowel sounds in all 4 quadrants. Musculoskeletal: Normal range of motion in joints throughout the body. No deformity or other signs of injury. Neuro: Alert and oriented x4. Cranial nerves II-XII intact. No focal deficits appreciated. 5 out of 5 strength of bilateral upper and lower extremities with no appreciable unilateral weakness. No ataxia with rapid alternating movements or [id number]-[id number] bilaterally. Sensation is intact to face and bilateral upper and lower extremetites. Psych: Normal mood and affect. Assessment & Plan Assessment & Plan (1) Brain fog: Code(s): R41.89 - Other symptoms and signs involving cognitive functions and awareness Plan 29-year-old female with history of absence seizures, chronic migraine disorder who presented to the walk-in clinic with concerning neurological symptoms. The differential diagnosis includes breakthrough absence seizures versus complex migraine headaches versus more concerning neurological condition such as intracranial hemorrhage, which seems less likely given lack of thunderclap headache and completely normal neurological exam. 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 The patient does have a scheduled appointment with her neurologist for the end of September but I do believe that the patient needs to be seen sooner given her symptoms. I recommended that the patient proceed to the emergency room for a neurological workup and patient was agreeable. Patient agreed to proceed directly to [facility] Emergency room. I spoke with the [facility] Emergency room and discussed patient's history and physical as well as recommendations. I offered the patient an ambulance given her symptoms; however, patient adamantly declined and understands the risks of driving herself to the emergency room. In my medical opinion, the patient has the competence to make medical decisions for herself. Orders: Orders Resp Pathogen Panel - [facility] Today J06.9 - Acute upper respiratory infection, unspecified Coding Level of Care Code Est Pt Level 3 (72817) Diagnoses Brain fog R41.89
== END 2024-09-30 11:37 | disposition home or self-care (01) ==
PROVIDERS: PCP Physician Assistant; Visit Provider Physician Assistant Medical
DX: R41.89 Other symptoms and signs involving cognitive functions and awareness (principal)

== ENCOUNTER 2024-09-30 10:52 | Emergency (ER) | payer OTHER, SELFPAY ==
--- NOTE | ~2024-09-30 | CT_ITS ---
CLINICAL HISTORY: dick[facility] CT head without contrast. COMPARISON: None provided. FINDINGS: Mucosal thickening present within the ethmoid and maxillary sinuses. Mastoid air cells are clear. No calvarial fracture. No evidence for mass or mass effect. No intracranial hemorrhage or abnormal extra-axial fluid collection. No evidence of hydrocephalus. The basilar cisterns are patent. Posterior fossa appears unremarkable. IMPRESSION: 1. No acute intracranial findings. This document has been electronically signed by: Cristi Crawford MD on 09/30/2024 14:00:22
[2024-09-30 10:57] VITALS: BP 159/78; PULSE 82; RESP 17; TEMP 36.7; O2SAT 99; BMI 34.9
[2024-09-30 11:27] LABS: MANUAL DIFF FLAG NO
[2024-09-30 11:28] LABS: Hematocrit 31.6 % (37.0-47.0); Hemoglobin 9.9 g/dl (12.0-16.0); Imm Gran Abs Auto 0.01 X10*3/uL (0.00-0.03); Imm Gran Pct Auto 0.2 % (0.0-0.4); Lymphocytes Absolute Auto 2.7 X10*3/uL (1.2-4.9); Mean Corpuscular HGB Conc 31.3 g/dl (31.0-35.0); Mean Corpuscular Hemoglobin 26.8 pg (27.0-33.0); Mean Corpuscular Volume 85.4 fL (80.0-98.0); NRBC Abs Auto 0.000 X10*3/uL (0.0-0.012); NRBC Pct Auto 0.0 /100WBC (0.0-0.2); Platelet Count 350 X10*3/uL (160-400); Red Blood Count 3.70 X10*6/uL (4.20-5.50); White Blood Count 5.8 X10*3/uL (4.8-10.8)
[2024-09-30 11:48] LABS: Alanine Aminotransferase 18 U/L (0-31); Albumin Level 4.0 g/dL (3.5-5.0); Alkaline Phosphatase 93 U/L (39-117); Anion Gap 10 (12-20); Aspartate Amino Transferase 19 U/L (5-31); Blood Urea Nitrogen 10 mg/dL (9-16); Calcium 8.7 mg/dL (8.4-10.2); Carbon Dioxide 26 mmol/L (22-29); Chloride 109 mmol/L (96-108); Creatinine Clr Calc Pharmacy 123.1; Estimated Glomerular Filt Rate > 60; Magnesium 1.9 mg/dL (1.6-2.6); Potassium 3.7 mmol/L (3.3-5.1); Sodium 141 mmol/L (135-145); Total Protein 6.9 g/dL (6.5-8.0)
--- NOTE | 2024-09-30 12:40 | ED.NEUROSD ---
HPI - Neuro Symptoms/Deficit General Chief Complaint: Neuro Symptoms/Deficit Stated Complaint: tingling in head Time Seen by Provider: 09/30/24 12:19 History of Present Illness HPI Narrative: Patient is a 29-year-old female presented today with having brain fog, feeling like her brain is coming out of her head. Feels intermittent blurriness in vision. There is no focal weakness. There is no nausea no vomiting. Has a history of absence seizures. Compliant with being on Keppra patient denies any fever chills denies any chest pain diaphoresis denies any focal weakness denies any changes in speech any difficulty in swallowing. Patient is from home Related Data Home Medications ?Medication ?Instructions ?Recorded ?Confirmed lamotrigine 100 mg tablet 100 mg PO DAILY 07/11/24 07/11/24 Previous Rx's ?Medication ?Instructions ?Recorded hydroxyzine HCl 10 mg tablet 20 mg (2 x 10 mg) PO BEDTIME PRN 06/24/22 for insomnia #30 tabs ferrous sulfate 325 mg (65 mg 325 mg PO DAILY 90 days #90 tabs 07/11/24 iron) tablet Allergies Allergy/AdvReac Type Severity Reaction Status Date / Time shellfish derived (SHELLFISH Allergy Mild ITCHING Verified 09/30/24 11:00 DERIVED) bupropion (From Wellbutrin) Allergy Unknown Seizure Verified 09/30/24 11:00 nifedipine AdvReac Intermediate Headaches Verified 09/30/24 11:00 Review of Systems Review of Systems: No fever no chills no chest pain Yes all other systems are reviewed and are negative PMFSH Past Medical History Attestation statement: The following information was validated with the patient. Medical History Encounter for screening H/O partial seizures Anemia Surgical History Hx of wisdom tooth extraction Hx of section Family History Family History Mother History of mental problems Brother Hx of bipolar disorder Maternal Aunt History of breast cancer in female Paternal Grandmother Family hx-stroke Maternal Aunt Breast cancer Stomach cancer Social History Social History Household Members: Spouse and Children Housing: Apartment Are you a primary vocational childcare teacher to a significant other at home: No Do you presently have visiting nurse or other home services: No Alcohol intake: current Alcohol intake frequency: holidays/special occasions only Patient Tobacco Use Status: Never used Tobacco e-Cigarette/Vaping Use: Never Used Second Hand Smoke Exposure: No Advance Directives: No Advance Directives Information Provided: Yes Do you have a plan to hurt others: No Plan service: No 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al status: unemployed Cognitive needs: No Hearing needs: No Vision needs: Yes (glasses) Physical Exam Exam: Exam: Appearance: Alert. Oriented X3. No acute distress. Eyes: Pupils equal, round and reactive to light. ENT: Pharynx normal. Neck: Normal inspection. Neck supple. No lymph nodes noted. No crepitus CVS: Normal heart rate and rhythm. Pulses normal. Normal S1 and S2 Respiratory: No respiratory distress. Breath sounds normal. No Wheezing. No rales Abdomen: Soft and nontender. No rigidity. No distention. good BS x4 Skin: Skin warm and dry. Normal skin color. Normal skin turgor. Extremities: No lower extremity edema. Neurovascular intact to all extremities. No Lacerations. No Rash Neuro: Oriented X 3. No motor deficit. No sensory deficit. Moving all extermities. No slurred speech Vital Signs: Vital Signs: Last Vital Signs Temp 98.1 F 09/30/24 10:57 Pulse 82 09/30/24 10:57 Resp 17 09/30/24 10:57 BP 159/78 H 09/30/24 10:57 Pulse Ox 99 09/30/24 10:57 O2 Del Method Room Air 09/30/24 10:57 BMI result Body Mass Index 34.9 Medical Decision Making Medical Decision Making MDM Narrative: Patient well appearing no acute distress. Her white count is normal. Patient's symptoms not consistent with meningitis. Neurologically intact. Well coordinated. Sed rate is normal no evidence for temporal arteritis patient's chemistry was normal. Patient's TSH is normal no evidence of hypo or hyperthyroid patient's urine showed no signs of infection test is negative no evidence for related illness will discharge patient home close follow-up on an outpatient basis my interpretation patient's CT scan was negative for bleed. Visual acuity still pending Differential Diagnosis Differential Diagnoses: The differential diagnosis associated with the presentation includes Migraine, intracranial bleed, mass, meningitis Admission/Observation Consideration of admission/observation: Escalation of care including admission/observation considered Lab Data MDM Lab Attestation statement: I reviewed the patient's lab results. 09/30/24 11:21 09/30/24 11:21 Labs: Lab Results 09/30/24 09/30/24 Range/Units 11:21 13:08 WBC 5.8 (4.8-10.8) X10*3/uL RBC 3.70 L (4.20-5.50) X10*6/uL Hgb 9.9 L (12.0-16.0) g/dl Hct 31.6 L (37.0-47.0) % MCV 85.4 (80.0-98.0) fL MCH 26.8 L (27.0-33.0) pg MCHC 31.3 (31.0-35.0) g/dl RDW 16.5 H (11.0-16.0) % Plt Count 350 (160-400) X10*3/uL MPV 9.0 L (9.4-12.3) fL Immature Gran % (Auto) 0.2 (0.0-0.4) % Neut % (Auto) 36.8 L (45-73) % Lymph % (Auto) 45.8 H (20-40) % [place] % (Auto) 11.0 (2-11) % Eos % (Auto) 5.5 H (0-4) % Baso % (Auto) 0.7 (0-2) % Lymph # (Auto) 2.7 (1.2-4.9) X10*3/uL [place] # (Auto) 0.6 (0.1-1.2) X10*3/uL Eos # (Auto) 0.3 (0.0-0.4) X10*3/uL Baso # (Auto) 0.0 (0.0-0.2) X10*3/uL Abs Immat Gran (auto) 0.01 (0.00-0.03) X10*3/uL Absolute Neuts (auto) 2.2 (2.0-8.3) x10*3/uL Absolute Nucleated RBC 0.000 (0.0-0.012) X10*3/uL Nucleated RBC % (auto) 0.0 (0.0-0.2) /100WBC ESR 16 (0-20) MM/HR Sodium 141 (135-145) mmol/L Potassium 3.7 (3.3-5.1) mmol/L Chloride 109 H (96-108) mmol/L Carbon Dioxide 26 (22-29) mmol/L Anion Gap 10 L (12-20) BUN 10 (9-16) mg/dL Creatinine 0.62 (0.5-1.4) mg/dL Estim Creat Clear Calc 123.1 Estimated GFR > 60 Random Glucose 95 (60-115) mg/dL Calcium 8.7 D (8.4-10.2) mg/dL Magnesium 1.9 (1.6-2.6) mg/dL Total Bilirubin 0.3 (0.0-1.0) mg/dL AST 19 (5-31) U/L ALT 18 (0-31) U/L Alkaline Phosphatase 93 (39-117) U/L C-Reactive Protein 1.16 H (< or = 0.50) mg/dL Total Protein 6.9 (6.5-8.0) g/dL Albumin 4.0 (3.5-5.0) g/dL TSH 1.78 (0.32-4.0) uIU/mL Urine Color Yellow Urine Appearance Clear Urine pH 6.5 (5.0-9.0) Ur Specific [place] 1.020 (1.005-1.025) Urine Protein Negative (Neg-Trace) mg/dL Urine Glucose (UA) Negative (Negative) mg/dL Urine Ketones Negative (Negative) mg/dL Urine Blood Negative (Negative) Urine Nitrite Negative (Negative) Ur Leukocyte Esterase Negative (Negative) Urine Test NEGATIVE (NEGATIVE) Independent Interpretation I performed an independent interpretation of an: CT Scan (CT head negative for bleed) Radiology Impression Discussion of test interpretation with radiology: I have reviewed the radiologist's reading. Social Determinants Patient?s care significantly limited by Social Determinants of Health including: Problems related to primary support group Discharge Plan Discharge Clinical Impression: Headache Patient Disposition: Home, Self-Care Instructions: Acute Headache (ED) Prescriptions: No Action hydroxyzine HCl 10 mg tablet 20 mg PO BEDTIME PRN (Reason: for insomnia) Qty: 30 2RF lamotrigine 100 mg tablet 100 mg PO DAILY ferrous sulfate 325 mg (65 mg iron) tablet 325 mg PO DAILY 90 Days Qty: 90 1RF Referrals: Justice Raygoza PA-C [Primary Care Provider, Internal Medicine] - 10/04/24 Print Language: Mongolian
[2024-09-30 13:22] LABS: Appearance Urine Clear; Glucose Urine UA Negative (Negative); PH 6.5 (5.0-9.0); Specific Gravity - Urine 1.020 (1.005-1.025); UPreg QC Valid YES
[2024-09-30 14:55] VITALS: BP 144/75; PULSE 80; RESP 16; TEMP 36.7; O2SAT 99
== END 2024-09-30 14:55 | disposition home or self-care (01) ==
PROVIDERS: Nurse Practitioner Family; Emergency Provider Emergency Medicine Emergency Medical Services; PCP Physician Assistant
DX: R51.9 Headache, unspecified (principal); G40.A09 Absence epileptic syndrome, not intractable, without status epilepticus; D64.9 Anemia, unspecified
CPT/HCPCS: 36415; 70450; 80053; 81003; 81025; 83735; 84443; 85025; 85652; 86140; 99212; 99283; 99284

== ENCOUNTER → 2024-09-30 12:38 | Outpatient (BNV) | payer OTHER, SELFPAY | PROVIDERS: Emergency Provider Emergency Medicine Emergency Medical Services; PCP Physician Assistant; Visit Provider Radiology Diagnostic Radiology | DX: R51.9 Headache, unspecified (principal) | CPT/HCPCS: 70450 ==

== ENCOUNTER 2024-10-10 19:18 | Emergency (ER) | payer OTHER, SELFPAY ==
[2024-10-10 19:29] VITALS: BP 134/87; PULSE 87; RESP 16; TEMP 36.3; O2SAT 98; BMI 32.3
[2024-10-10 19:42] LABS: MANUAL DIFF FLAG NO
[2024-10-10 19:47] LABS: Hematocrit 32.0 % (37.0-47.0); Hemoglobin 10.0 g/dl (12.0-16.0); Imm Gran Abs Auto 0.01 X10*3/uL (0.00-0.03); Imm Gran Pct Auto 0.2 % (0.0-0.4); Lymphocytes Absolute Auto 2.8 X10*3/uL (1.2-4.9); Mean Corpuscular HGB Conc 31.3 g/dl (31.0-35.0); Mean Corpuscular Hemoglobin 26.6 pg (27.0-33.0); Mean Corpuscular Volume 85.1 fL (80.0-98.0); NRBC Abs Auto 0.000 X10*3/uL (0.0-0.012); NRBC Pct Auto 0.0 /100WBC (0.0-0.2); Platelet Count 525 X10*3/uL (160-400); Red Blood Count 3.76 X10*6/uL (4.20-5.50); White Blood Count 5.7 X10*3/uL (4.8-10.8)
[2024-10-10 20:01] LABS: Alanine Aminotransferase 17 U/L (0-31); Albumin Level 4.3 g/dL (3.5-5.0); Alkaline Phosphatase 105 U/L (39-117); Anion Gap 15 (12-20); Aspartate Amino Transferase 26 U/L (5-31); Blood Urea Nitrogen 9 mg/dL (9-16); Calcium 8.7 mg/dL (8.4-10.2); Carbon Dioxide 25 mmol/L (22-29); Chloride 107 mmol/L (96-108); Creatinine Clr Calc Pharmacy 106.2; Estimated Glomerular Filt Rate > 60; Potassium 3.2 mmol/L (3.3-5.1); Sodium 144 mmol/L (135-145); Total Protein 7.5 g/dL (6.5-8.0)
--- NOTE | 2024-10-10 20:37 | ED_ITS ---
HPI - Animal Bite General Chief Complaint: Animal Bite Stated Complaint: stung by a wasp yesterday/swollen and painful Time Seen by Provider: 10/10/24 20:01 Source: patient Mode of arrival: ambulatory Limitations: no limitations History of Present Illness ED Provider: Dr. Silvina Payan HPI narrative: Patient comes in the emergency room complaining of getting stung by a wasp yesterday. Patient got stung in the frontal aspect of the right thigh. Patient states it is very itchy, hurts and it is erythematous. Patient denies any difficulty breathing, itchy throat, only localized side-effects Related Data Home Medications ?Medication ?Instructions ?Recorded ?Confirmed lamotrigine 100 mg tablet 100 mg PO DAILY 07/11/2402/22 Previous Rx's ?Medication ?Instructions ?Recorded hydroxyzine HCl 10 mg tablet 20 mg (2 x 10 mg) PO BEDT [place] PRN 06/24/22 for insomnia #30 tabs ferrous sulfate 325 mg (65 mg 325 mg PO DAILY 90 days #90 tabs 07/11/24 iron) tablet diphenhydramine HCl 2 % topical 1 appl topical TID PRN itching 10/10/24 gel (Benadryl) #103 mL famotidine 40 mg tablet (Pepcid) 40 mg PO DAILY #4 tab s 10/10/24 hydrocortisone 2.5 % topical cream 1 appl topical TID #28.35 grams 10/10/24 prednisone 50 mg tablet 50 mg PO DAILY #4 tabs 10/10 Allergies Allergy/AdvReac Type Severity Reaction Status Date / Time shellfish derived (SHELLFISH Allergy Mild ITCHING Verified 10/10/24 19:32 DERIVED) bupropion (From Wellbutrin) Allergy Unknown Seizure Verified 10/10/24 19:32 nifedipine AdvReac Intermediate Headaches Verified 10/10/24 19:32 Review of Systems 2 Review of Systems: Constitutional : No Weight loss, No Fever, No Chills, No Night Sweats, No Fatigue, No Malaise ENT/Mouth : No Hearing loss, No Ear Pain, No Nasal Congestion, No Sinus Pain, No Hoarseness, No sore throat, No Rhinorrhea, No Swallowing Difficulty Eyes: No Eye Pain, No Swelling, No Redness, No Foreign Body, No Discharge, No Vision Changes Cardiovascular : No Chest Pain, No SOB, No Dyspnea on Exertion, No Orthopnea, No Edema, No Palpitations Respiratory : No Cough, No Sputum, No Wheezing, No Smoke Exposure, No Dyspnea Gastrointestinal : No Nausea, No Vomiting, No Diarrhea, No Constipation, No abdominal Pain, No Hematochezia, No Melena Genitourinary : no irregular bleeding, No Dysuria, No Urinary Frequency, No Hematuria, No Urinary Incontinence, No Urgency, No Flank Pain, No Urinary Flow Changes, No Hesitancy Musculoskeletal : No joint pain, No Myalgias, No Joint Swelling Skin : Complaining of itchiness, swelling, erythema and pain after being stung by a wasp Neuro : No Weakness, No Numbness, No Paresthesias, No Loss of Consciousness, No Dizziness, No Headache Psych : No Anxiety/Panic, No Depression, No SI/HI/AH/VH, No Social Issues, Heme/Lymph: No Bruising, No Bleeding,No Lymphadenopathy Endocrine : No Polyuria, No Polydipsia, No Temperature Intolerance PMFSH Past Medical History Medical History Encounter for screening H/O partial seizures Anemia Surgical History Hx of wisdom tooth extraction Hx of section Family History Family History Mother History of mental problems Brother Hx of bipolar disorder Maternal Aunt History of breast cancer in female Paternal Grandmother Family hx-stroke Maternal Aunt Breast cancer Stomach cancer Social History Social History (Updated 10/10/24 @ 16:08 by Khloe Pemberton) Household Members: Spouse and Children Housing: Apartment Are you a primary child care group leader to a significant other at home: No Do you presently have visiting nurse or other home services: No Alcohol intake: current Alcohol intake frequency: holidays/special occasions only Patient Tobacco Use Status: Never used Tobacco Smoked in Last 30 Days: No e-Cigarette/Vaping Use: Never Used Second Hand Smoke Exposure: No Use of substances other than those prescribed or required for medical reasons: No Advance Directives: No Advance Directives Information Provided: No Do you have a plan to hurt others: No Plan service: No 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al status: unemployed Cognitive needs: No Hearing needs: No Vision needs: Yes (glasses) Physical Exam ED Exam Exam: Appearance: Alert. Oriented X3. No acute distress. Eyes: Pupils equal, round and reactive to light. ENT: Pharynx normal. Neck: Normal inspection. Neck supple. No lymph nodes noted. No crepitus CVS: Normal heart rate and rhythm. Pulses normal. Normal S1 and S2 Respiratory: No respiratory distress. Breath sounds normal. No Wheezing. No rales Abdomen: Soft and nontender. No rigidity. No distention. Skin: Skin warm and dry. See extremities below Extremities: No lower extremity edema. No Lacerations. No Rash. Patient's thigh on the right, there is erythema, warmth. Neuro: Oriented X 3. No motor deficit. No sensory deficit. Moving all extremities. No slurred speech. CN 2 through 12 grossly intact Psych: calm, cooperative, normal affect Vital Signs: Vital Signs - 24 hr 10/10/24 19:29 Temperature 97.3 F Pulse Rate 87 Respiratory Rate 16 Blood Pressure 134/87 Pulse Oximetry 98 Oxygen Delivery Method Room Air BMI result Body Mass Index 32.3 Medications Administered Discontinued Medications Generic Name Dose Route Start Last Admin Trade Name Freq PRN Reason Stop Dose Admin Diphenhydramine HCl 50 mg 10/10/24 20:06 10/10/24 20:26 Diphenhydramine Hcl 25 Mg Capsule PO 10/10/24 20:07 50 mg ONCE ONE Administration Famotidine 20 mg 10/10/24 20:06 10/10/24 20:27 Famotidine 20 Mg Tablet PO 10/10/24 20:07 20 mg ONCE ONE Administration Prednisone 60 mg 10/10/24 20:06 10/10/24 20:26 Prednisone 20 Mg Tablet PO 10/10/24 20:07 60 mg ONCE ONE Administration Medical Decision Making Medical Decision Making [facility] Narrative: I discussed the physical exam with the patient, patient is the is erythematous, in a wheel forearm. Unfortunately, was venom tends to do this, this is not a cellulitis, it is a localized reaction to the venom Here in the emergency room, patient received a dose of p.o. Benadryl, Pepcid and prednisone. Medications were sent to the patient's pharmacy. At this time, antibiotics are not indicated Lab Data [facility] Lab Attestation statement: I reviewed the patient's lab results. 10/10/24 19:36 10/10/24 19:36 Labs: Lab Results 10/10/24 Range/Units 19:36 WBC 5.7 (4.8-10.8) X10*3/uL RBC 3.76 L (4.20-5.50) X10*6/uL Hgb 10.0 L (12.0-16.0) g/dl Hct 32.0 L (37.0-47.0) % MCV 85.1 (80.0-98.0) fL MCH 26.6 L (27.0-33.0) pg MCHC 31.3 (31.0-35.0) g/dl RDW 16.0 (11.0-16.0) % Plt Count 525 H D (160-400) X10*3/uL MPV 9.2 L (9.4-12.3) fL Immature Gran % (Auto) 0.2 (0.0-0.4) % Neut % (Auto) 38.7 L (45-73) % Lymph % (Auto) 49.0 H (20-40) % [place] % (Auto) 8.4 (2-11) % Eos % (Auto) 3.0 (0-4) % Baso % (Auto) 0.7 (0-2) % Lymph # (Auto) 2.8 (1.2-4.9) X10*3/uL [place] # (Auto) 0.5 (0.1-1.2) X10*3/uL Eos # (Auto) 0.2 (0.0-0.4) X10*3/uL Baso # (Auto) 0.0 (0.0-0.2) X10*3/uL Abs Immat Gran (auto) 0.01 (0.00-0.03) X10*3/uL Absolute Neuts (auto) 2.2 (2.0-8.3) x10*3/uL Absolute Nucleated RBC 0.000 (0.0-0.012) X10*3/uL Nucleated RBC % (auto) 0.0 (0.0-0.2) /100WBC Sodium 144 (135-145) mmol/L Potassium 3.2 L (3.3-5.1) mmol/L Chloride 107 (96-108) mmol/L Carbon Dioxide 25 (22-29) mmol/L Anion Gap 15 (12-20) BUN 9 (9-16) mg/dL Creatinine 0.69 (0.5-1.4) mg/dL Estim Creat Clear Calc 106.2 Estimated GFR > 60 Random Glucose 91 (60-115) mg/dL Calcium 8.7 (8.4-10.2) mg/dL Total Bilirubin 0.7 (0.0-1.0) mg/dL AST 26 (5-31) U/L ALT 17 (0-31) U/L Alkaline Phosphatase 105 (39-117) U/L Total Protein 7.5 (6.5-8.0) g/dL Albumin 4.3 (3.5-5.0) g/dL Discharge Plan Discharge Clinical Impression: Sting, wasp Patient Disposition: Home, Self-Care Instructions: Insect Bite or Sting (ED) Additional Instructions: Please follow-up with your primary care physician tomorrow. If you have any worsening or new symptoms, please return to the emergency room or call 911 Prescriptions: New prednisone 50 mg tablet 50 mg PO DAILY Qty: 4 0RF Benadryl 2 % gel 1 appl topical TID PRN (Reason: itching) Qty: 103 0RF famotidine [Pepcid] 40 mg tablet 40 mg PO DAILY Qty: 4 0RF hydrocortisone 2.5 % cream 1 appl topical TID Qty: 28.35 0RF No Action hydroxyzine HCl 10 mg tablet 20 mg PO BEDTIME PRN (Reason: for insomnia) Qty: 30 2RF lamotrigine 100 mg tablet 100 mg PO DAILY ferrous sulfate 325 mg (65 mg iron) tablet 325 mg PO DAILY 90 Days Qty: 90 1RF Print Language: Norwegian
[2024-10-10 20:46] VITALS: BP 134/87; PULSE 87; RESP 16; TEMP 36.3; O2SAT 98
== END 2024-10-10 20:48 | disposition home or self-care (01) ==
PROVIDERS: Emergency Provider Emergency Medicine; PCP Physician Assistant
DX: T63.441A Toxic effect of venom of bees, accidental (unintentional), initial encounter (principal); M79.651 Pain in right thigh; Y92.9 Unspecified place or not applicable
CPT/HCPCS: 36415; 80053; 85025; 99283; 99284

== ENCOUNTER 2024-10-13 15:58 | Outpatient (AMB) | payer OTHER, SELFPAY ==
[2024-10-13 16:01] VITALS: BP 120/80; PULSE 83; O2SAT 97; BMI 34.4
--- NOTE | 2024-10-13 16:01 | MHC.PC.OV ---
Vital Signs 10/13/24 16:01 Height 4 ft 11 in Weight 170 lb 2 oz BMI 34.4 BP 120/80 Blood Pressure Location Lt brachial Position Sitting Pulse 83 Pulse Source Pulse Oximeter Pulse Oximetry (%) 97 Oxygen Delivery Method Room Air Intake Visit Reasons: [facility] [place] [place] 09/30 chronic migraine and brain fog Spinner Continuous Required: No Accompanied by: Self / Same As Patient Allergies shellfish derived (SHELLFISH DERIVED) Allergy (Mild, Verified 10/13/24 16:03) ITCHING bupropion (From Wellbutrin) Allergy (Unknown, Verified 10/13/24 16:03) Seizure nifedipine Adverse Reaction (Intermediate, Verified 10/13/24 16:03) Headaches Tobacco use date assessed: 10/13/24 Dental Screening Dental Screen Date: 10/13/24 Did you have a dental visit in the last 12 months?: Yes Did you have a dental problem in the last 6 months where you did not have access to dental care?: No Was dental information given to patient?: Patient has dentist HPI HPI Comments History of Present Illness Details 29 y/o Female patient who presents to the clinic for EDF. Pt was admitted at [facility] [place] [place] on 09/30 for an evaluation and treatment of Headaches, and having Brain Fog. She has h/o Seizures and currently takes Keppra. Pt does admit to being under tremendous stress in her life right now. She is having no family support at home - has young boys and one with Disability. She is having housing problems, and worried she might be homeless. All imaging and testing negative in the hospital. She will F/U with Neuro at the end of this month. Pt c/o right ankle pain - she twisted it while walking yesterday. Asking for PT. [facility] Medical History (Updated 10/13/24 @ 17:52 by Alyssa Castro NP) Right ankle sprain Encounter for screening H/O partial seizures Anemia Surgical History Hx of wisdom tooth extraction Hx of section Family History Mother History of mental problems Brother Hx of bipolar disorder Maternal Aunt History of breast cancer in female Paternal Grandmother Family hx-stroke Maternal Aunt Breast cancer Stomach cancer Social History Household Members: Spouse and Children Housing: Apartment Are you a primary home care music therapist to a significant other at home: No Do you presently have visiting nurse or other home services: No Alcohol intake: current Alcohol intake frequency: holidays/special occasions only Patient Tobacco Use Status: Never used Tobacco e-Cigarette/Vaping Use: Never Used Second Hand Smoke Exposure: No service: No 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al status: unemployed Cognitive needs: No Hearing needs: No Vision needs: Yes (glasses) Female Reproductive History Menstrual Age of Menarche: 15 Questionnaire PHQ-9 Over the last 2 weeks, how often have you been bothered by any of the following problems? 1. Little interest or pleasure in doing things: several days 2. Feeling down, depressed, or hopeless: not at all 3. Trouble falling or staying asleep, or sleeping too much: more than half the days 4. Feeling tired or having little energy: more than half the days 5. Poor appetite or overeating: several days 6. Feeling bad about yourself - or that you are a failure or have let yourself or your family down: not at all 7. Trouble concentrating on things, such as reading the newspaper or watching television: several days 8. Moving or speaking so slowly that other people could have noticed. Or the opposite - being so fidgety or restless that you have been moving around a lot more than usual: not at all 9. Thoughts that you would be better off or of hurting yourself in some way: not at all Total score: 7 Depression Screening Interpretation: Positive Depression Screening Follow-up: Existing condition Depression Screening Done: Yes Source: Developed by Drs. Dangelo Artis, Dede Villegas, Austen Paris and colleagues, with an educational ryann from [employer]. Thrive Questionnaire Date Thrive assessed: 10/13/24 I am a: Patient What is your living situation today?: I do not have a steady places to live I am temporarily staying with others Within the past 12 months, did the food you bought not last and you didn't have the money to get more?: Never true Within the past 12 months, did you worry whether your food would run out before you got money to buy more?: Never true Do you have trouble paying for medicines?: No Do you have trouble getting transportation to medical appointments?: No Do you have trouble paying your heating and electricity bill?: No Do you have trouble taking care of your child, family member or friend?: No Do you have trouble with day-to-day activities such as bathing, preparing meals, shopping, managing finances, etc.?: No Are you currently unemployed and looking for a job?: Yes Are you interested in more education?: No Please select the resources that you would like help with: None Currently or been in a relationship where the following occur: No concerns reported THRIVE Score: 1 AUDIT C Alcohol Use Questionnaire (AUDIT-C) 1. How often do you have a drink containing alcohol?: Never 3. How often do you have six or more drinks on one occasion?: Never Total Score: 0 EUGENE-7 AMB Questionnaire EUGENE-7 Date EUGENE - 7 assessed: 10/13/24 Feeling nervous, anxious, or on edge: 0 = Not at all Not being able to stop or control worryin = Not at all Worrying too much about different things: 0 = Not at all Trouble relaxin = More than half the days Being so restless that it is hard to sit still: 0 = Not at all Becoming easily annoyed or irritable: 2 = More than half the days Feeling afraid as if something awful might happen: 0 = Not at all Total EUGENE-7 score (0-4 normal; 5-9 mild; 10-14 moderate; 15-21 severe): 4 Source: Developed by Drs. Dangelo Artis, Dede Villegas, Austen Paris and colleagues, with an educational ryann from [employer]. EUGENE-7 Assessment Billing EUGENE-7 Assessment Tool: EUGENE-7 Assessment 70338 Review of Systems Const All systems reviewed & are unremarkable except as noted in HPI and below Physical exam (Primary Care) Vital Signs: Last Vital Signs Pulse 83 10/13/24 16:01 BP 120/80 10/13/24 16:01 Pulse Ox 97 10/13/24 16:01 Oxygen Delivery Method Room Air 10/13/24 16:01 BMI result Body Mass Index 34.4 Tobacco/Smoking Status: Tobacco use Status Tobacco use date assessed 10/13/24 10/13/24 16:07 Patient Tobacco Use Status Never used Tobacco 10/13/24 16:07 e-Cigarette/Vaping Use Never Used 10/13/24 16:07 PHQ-9: PHQ-9 Score PHQ-9: Total score 7 10/13/24 16:07 Depression Screening Interpretation: Positive Depression Screening Follow-up: Existing condition Thrive Assessment: Date of Thrive Assessment Date Thrive assessed 10/13/24 10/13/24 16:07 Currently or been in a relationship where the following occur: No concerns reported Const General: no acute distress Nutritional Appearance: obese Orientation/consciousness: patient oriented x3 Resp Effort & Inspection: normal respiratory effort Cardio Heart sounds: S1 normal heart sound present and S2 normal heart sound present Neuro General: patient oriented x3, gait normal and moves all extremities Cranial nerves: Yes CN's II-XII intact bilaterally Extrem Right lower extremity: ankle Details: normal to inspection, tenderness, no edema and abnormal ROM Details: pain with active ROM and pain with passive ROM; no swelling, no unusual warmth, no abrasions, no ecchymosis and no crepitus Psych Speech and movement: Normal speech and movement present Coding Level of Care Code Est Pt Level 4 (21473) Diagnoses Migraines G43.909 Right ankle sprain S93.401A Additional Codes EUGENE-7 Assessment Billing - EUGENE-7 Assessment Tool: EUGENE-7 Assessment 96421 ([id number]) Time Spent (min) 20 Assessment & Plan Assessment & Plan (1) Migraines: Code(s): G43.909 - Migraine, unspecified, not intractable, without status migrainosus Category: Medical Plan: Managed by Neurology. (2) Right ankle sprain: Code(s): S93.401A - Sprain of unspecified ligament of right ankle, initial encounter Category: Medical Plan: Placed referral for PT. Orders: Orders PT Evaluation and Treatment Today S93.401A - Sprain of unspecified ligament of right ankle, initial encounter
--- OUTSIDE RECORDS SUMMARY | 2024-10-13 16:01 | XMS_ITS | Patient Health Record ---
Author Organization [facility] Address [address] [place], [place] [id number] Care Team Providers Care Quiller Hand Name Role Phone KAYKAY PATTEN Unavailable [phone] Stacy Jovel Unavailable [phone] Allergies Allergen (clinical drug ingredient) Drug/Non Drug Allergy documented on EMR Reaction Allergy Type Onset Date Status Shellfish (FN) Shellfish-derived Products Unknown Drug Allergy Active Results Component Value Reference Range Notes Ct/GC CHELSEY, Pharyngeal-[id number] Reviewed date:07/13/2024 12:36:15 PM Interpretation:Negative Performing Lab:[facility], [address], [address], [employer], Phone - [phone], Director - [facility] Notes/Report: C. trachomatis, CHELSEY, Pharyn Negative Negative N. gonorrhoeae, CHELSEY, Pharyn Negative Negative Ct/GC CHELSEY, Rectal-[id number] Reviewed date:07/13/2024 12:37:04 PM Interpretation:Negative Performing Lab:[facility], [address], [address], [employer], Phone - [phone], Director - [facility] Notes/Report: C. trachomatis, CHELSEY, Rectal Negative Negative N. gonorrhoeae, CHELSEY, Rectal Negative Negative Ct, Ng, Trich vag by CHELSEY-[id number] Reviewed date:07/13/2024 12:36:46 PM Interpretation:Negative Performing Lab:[facility], [address], [address], [employer], Phone - [phone], Director - [facility] Notes/Report: Chlamydia by CHELSEY Negative Negative Gonococcus by CHELSEY Negative Negative Trich vag by CHELSEY Negative Negative HCV Antibody RFX to Quant PC [id number] Reviewed date:07/13/2024 12:37:16 PM Interpretation:Non-reactive Performing Lab:[facility] [place], [address], [address], [place], Phone - [phone], Director - [facility] Notes/Report: HCV Ab Non Reactive Non Reactive Interpretation: Not infected with HCV unless early or acute infection is suspected (which may be delayed in an immunocompromised individual), or other evidence exists to indicate HCV infection. HIV Ab/p24 Ag with Reflex-[id number] Reviewed date:07/13/2024 12:37:26 PM Interpretation:Non-reactive Performing Lab:[facility] [place], [address], [address], [place], Phone - [phone], Director - [facility] Notes/Report: HIV Ab/p24 Ag Screen Non Reactive Non Reactive HIV-1/HIV-2 antibodies and HIV-1 p24 antigen were NOT detected. There is no laboratory evidence of HIV infection. HIV Negative T pallidum Screening [place] -[id number] Reviewed date:07/13/2024 12:37:36 PM Interpretation:Non-reactive Performing Lab:[facility] [place], [address], [address], [place], Phone - [phone], Director - [facility] Notes/Report: T pallidum Antibodies Non Reactive Non Reactive Reason For Referral No Information Medications Medication SIG (Take, Route, Frequency, Duration) Notes Start Date End Date Status Levonorgestrel 1.5 MG as directed Orally Not-Taking Levonorgestrel 1.5 MG as directed Orally Not-Taking Plan B One-Step 1.5 MG 1 tablet Orally A t once; Duration: 1 days 08/28/2020 Not-Taking Plan B One-Step 1.5 MG 1 tablet Orally A t once; Duration: 1 days 05/01/2022 Not-Taking lamoTRIgine Active Not-Taking Social History Sex Assigned At : Social History Observation Description Sex Assigned At Female Encounters Encounter [facility] Date [facility] [id number] [facility] KAYKAY PATTEN Encounter for prescription of emergency contraception Z30.012 [place] [facility] [address] [place] [phone] 07/07/2024 Stacy Jovel Encounter for screening for [...] patient Ordering medication/ test/proced ures Established Patient: [id number] 10 Minutes 07/07/2024 Counseling, unspecified (ICD-10 - Z71.9) Spent 10 minutes doing the following: Chart Prep Obtaining/r eviewing history Counseling/ Coordinatio n of Care Documenting the visit Educating the patient Ordering medication/ test/proced ures Established Patient: [id number] 10 Minutes 07/07/2024 Other problems related to lifestyle (ICD-10 - Z72.89) Spent 10 minutes doing the following: Chart Prep Obtaining/r eviewing history Counseling/ Coordinatio n of Care Documenting the visit Educating the patient Ordering medication/ test/proced ures Established Patient: [id number] 10 Minutes 07/07/2024 HIV Screening (ICD-10 - Z11.4) Spent 10 minutes doing the following: Chart Prep Obtaining/r eviewing history Counseling/ Coordinatio n of Care Documenting the visit Educating the patient Ordering medication/ test/proced ures Established Patient: [id number] 10 Minutes 07/07/2024 Screening for other viral diseases (ICD-10 - Z11.59) Spent 10 minutes doing the following: Chart Prep Obtaining/r eviewing history Counseling/ Coordinatio n of Care Documenting the visit Educating the patient Ordering medication/ test/proced ures Established Patient: [id number] 10 Minutes 03/08/2024 Other Discussed STI risks, screening, and safe sex Plan Of Treatment No Information Insurance Providers Payer Name Payer Address Payer Phone Subscriber Number Group Number Insured Name Patient Relationship to Insured Coverage Start Date Coverage End Date [place] ATT CLAIMS [address] [place] [id number] Filemon Helton Self - patient is the insured Medical (General) History Surgical History Surgery Date(Month/Year) c section x 2
== END 2024-10-13 16:55 | disposition home or self-care (01) ==
LOC: HO.HMCH 15:59
PROVIDERS: PCP Physician Assistant; Visit Provider Nurse Practitioner Family
DX: G43.909 Migraine, unspecified, not intractable, without status migrainosus (principal); S93.401A Sprain of unspecified ligament of right ankle, initial encounter

== ENCOUNTER → 2024-10-13 15:58 | Outpatient (BNVA) | payer OTHER, SELFPAY | PROVIDERS: PCP Physician Assistant; Visit Provider Nurse Practitioner Family | DX: S93.401A Sprain of unspecified ligament of right ankle, initial encounter (principal); G43.909 Migraine, unspecified, not intractable, without status migrainosus; R56.9 Unspecified convulsions; X50.1XXA Overexertion from prolonged static or awkward postures, initial encounter; Y93.01 Activity, walking, marching and hiking; Y92.9 Unspecified place or not applicable; Y99.9 Unspecified external cause status; Z79.899 Other long term (current) drug therapy | CPT/HCPCS: 96127; 99212 ==

== ENCOUNTER 2024-11-07 08:06 | Outpatient (AMB) | payer OTHER, SELFPAY ==
[2024-11-07 08:10] VITALS: BP 124/82; BMI 34.3
--- NOTE | 2024-11-07 08:10 | MHC.OFFVIS ---
Vital Signs 11/07/24 08:10 11/07/24 08:45 Height 4 ft 11 in Weight 170 lb BMI 34.3 BP 124/82 116/72 Intake Visit Reasons: Lump on Labial Intake Note: pt c/o occasional breast leaking. Lump on upper pubic area that comes and goes. Low labido Vice President Of Business Development: Vice President Of Business Development Present (Rosalinda) Allergies shellfish derived (SHELLFISH DERIVED) Allergy (Mild, Verified 11/07/24 08:10) ITCHING bupropion (From Wellbutrin) Allergy (Unknown, Verified 11/07/24 08:10) Seizure nifedipine Adverse Reaction (Intermediate, Verified 11/07/24 08:10) Headaches Is last menstrual period known: Yes Last menstrual period: 11/01/24 HPI Comments Details: Patient is here today with concerns of an external mons pubis lumps that drained and resolved a month ago. She reports spontaneous bilateral nipple discharge over the last week. Currently not sexually active since April, denies prior breast stimulation. Has concerns with decreased libido since her 1st child was born. Admits to missing her control pills and would like to change her product to possibly the NuvaRing. [facility] Medical History Galactorrhea Right ankle sprain Encounter for screening H/O partial seizures Anemia Surgical History Hx of wisdom tooth extraction Hx of section Family History Mother History of mental problems Brother Hx of bipolar disorder Maternal Aunt History of breast cancer in female Paternal Grandmother Family hx-stroke Maternal Aunt Breast cancer Stomach cancer Social History Household Members: Spouse and Children Housing: Apartment Are you a primary progressive care unit registered nurse to a significant other at home: No Do you presently have visiting nurse or other home services: No Alcohol intake: current Alcohol intake frequency: holidays/special occasions only Patient Tobacco Use Status: Never used Tobacco e-Cigarette/Vaping Use: Never Used Second Hand Smoke Exposure: No service: No 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al status: unemployed Cognitive needs: No Hearing needs: No Vision needs: Yes (glasses) Female Reproductive History Menstrual Age of Menarche: 15 Date of last menstrual period: 11/01/24 Review of Systems Const All systems reviewed & are unremarkable except as noted in HPI and below Reports as per HPI Eyes Reports no additional complaints ENT Reports no additional complaints Card Reports no additional complaints Resp Reports no additional complaints GI Reports as per HPI and Reports no additional complaints Reports as per HPI Musc Reports no additional complaints Skin/Breast Reports as per HPI Neuro Reports no additional complaints Psych Reports no additional complaints Endo Reports no additional complaints Albert/Lymph Reports no additional complaints Aller/Immun Reports no additional complaints Physical Exam Vital Signs: Last Vital Signs BP 116/72 11/07/24 08:45 BMI result Body Mass Index 34.3 Const General: cooperative, healthy appearing and no acute distress Orientation/consciousness: patient oriented x3 HEENT Head: Yes normal to inspection Eyes General: appearance normal, both eyes and all related structures Neck Neck: Yes normal visual inspection Thyroid: Thyroid normal Chest Other: No breast discharge discharge elicited bilaterally with the exam. Chest palpation & inspection: normal inspection of the chest and other (no puckering, dimpling, peau de orange, retraction, discharge, masses) Breast/axilla inspection: normal inspection of the breasts Breast/axilla palpation: normal palpation of the breasts Resp Effort & Inspection: normal respiratory effort GI Inspection: Yes normal to inspection Palpation (GI): Soft to palpation and Other GI palpation findings present (Nontender) Rectal Exam - Female: visual inspection normal General: Yes bladder normal to palpation External Female Exam: normal appearance of the urethra Speculum Exam - Vagina: normal appearance of the vagina, normal palpation, normal vaginal discharge and vaginal bleeding Speculum Exam - Cervix: normal appearance of the cervix and normal palpation Bimanual exam- vagina & uterus: normal bimanual exam, normal palpation, uterine size normal, bladder normal to palpation, normal palpation, uterine shape normal and non-tender Bimanual Exam- Adnexa, other: normal adnexae OB/external & speculum: vaginal bleeding Skin General skin exam: no rashes or lesions noted Rashes: no rashes Neuro General: patient oriented x3 Cognition (Neuro): normal cognition Extrem General: Yes normal to inspection Psych Attitude: cooperative Thought process: Normal thought process present Assessment & Plan Assessment & Plan (1) Reduced libido: Code(s): R68.82 - Decreased libido Plan: Reviewed concerns, discussed complex nature of topic recommend research sex therapist in area that is covered by insurance, website recommendations for book review and pod cast information. The patient expressed understanding and agreement with the plan of care. All of her questions and concerns were addressed to the best of my ability. (2) Mass of vulva: Code(s): N90.89 - Other specified noninflammatory disorders of vulva and perineum Plan: Area of concern has resolved, advised to follow up if there is any future concerns. Insert all questions (3) Galactorrhea: Code(s): N64.3 - Galactorrhea not associated with childbirth Category: Medical Plan: Plan prolactin level and follow up pending results. Plan The patient expressed understanding and agreement with the plan of care. All of her questions and concerns were addressed to the best of my ability. This note is constructed using voice recognition software. While every effort has been made to ensure accuracy, retail business development manager errors may have been included. Orders: Orders HCG Quantitative Today N64.3 - Galactorrhea not associated with childbirth Prolactin Today N64.3 - Galactorrhea not associated with childbirth Coding Level of Care Code Est Pt Level 3 (48200) Diagnoses Reduced libido R68.82 Mass of vulva N90.89 Galactorrhea N64.3
[2024-11-07 08:45] VITALS: BP 116/72
--- OUTSIDE RECORDS SUMMARY | 2024-11-07 08:52 | XMS_ITS | Patient Health Record ---
Author Organization [facility] Address [address] [place], [place] [id number] Care Team Providers Care Plate Grainer Name Role Phone KAYKAY PATTEN Unavailable [phone] Stacy Jovel Unavailable [phone] Allergies Allergen (clinical drug ingredient) Drug/Non Drug Allergy documented on EMR Reaction Allergy Type Onset Date Status Shellfish (FN) Shellfish-derived Products Unknown Drug Allergy Active Results Component Value Reference Range Notes T pallidum Screening Leiter -[id number] Reviewed date:07/13/2024 12:37:36 PM Interpretation:Non-reactive Performing Lab:[facility], [address], [address], [place] [employer], Phone - [phone], Director - [facility] Notes/Report: T pallidum Antibodies Non Reactive Non Reactive HIV Ab/p24 Ag with Reflex-[id number] Reviewed date:07/13/2024 12:37:26 PM Interpretation:Non-reactive Performing Lab:[facility], [address], [address], [place] [employer], Phone - [phone], [facility] Notes/Report: HIV Ab/p24 Ag Screen Non Reactive Non Reactive HIV-1/HIV-2 antibodies and HIV-1 p24 antigen were NOT detected. There is no laboratory evidence of HIV infection. HIV Negative HCV Antibody RFX to Quant PC [id number] Reviewed date:07/13/2024 12:37:16 PM Interpretation:Non-reactive Performing Lab:[facility] [place], [address], [address], [place] [employer], Phone - [phone], Director - [facility] Notes/Report: HCV Ab Non Reactive Non Reactive Interpretation: Not infected with HCV unless early or acute infection is suspected (which may be delayed in an immunocompromised individual), or other evidence exists to indicate HCV infection. Ct, Ng, Trich vag by CHELSEY-[id number] Reviewed date:07/13/2024 12:36:46 PM Interpretation:Negative Performing Lab:[facility] [place], [address], [address], [place], Phone - [phone], Director - [facility] Notes/Report: Chlamydia by CHELSEY Negative Negative Gonococcus by CHELSEY Negative Negative Trich vag by CHELSEY Negative Negative Ct/GC CHELSEY, Rectal-[id number] Reviewed date:07/13/2024 12:37:04 PM Interpretation:Negative Performing Lab:[facility] [place], [address], [address], [place], Phone - [phone], Director - [facility] Notes/Report: C. trachomatis, CHELSEY, Rectal Negative Negative N. gonorrhoeae, CHELSEY, Rectal Negative Negative Ct/GC CHELSEY, Pharyngeal-[id number] Reviewed date:07/13/2024 12:36:15 PM Interpretation:Negative Performing Lab:[facility] [place], [address], [address], [place], Phone - [phone], Director - [facility] Notes/Report: C. trachomatis, CHELSEY, Pharyn Negative Negative N. gonorrhoeae, CHELSEY, Pharyn Negative Negative Reason For Referral No Information Medications Medication SIG (Take, Route, Frequency, Duration) Notes Start Date End Date Status Levonorgestrel 1.5 MG Tablet as directed Orally Not-Takin g/PRN Levonorgestrel 1.5 MG Tablet as directed Orally Not-Takin g/PRN Plan B One-Step 1.5 MG Tablet 1 tablet Orally At once; Duration: 1 days 08/28/2020 Not-Taking/PRN Plan B One-Step 1.5 MG Tablet 1 tablet Orally At once; Duration: 1 days 05/01/2022 Not-Taking/PRN lamoTRIgine Active Not-Taking /PRN Social History Sex Assigned At : Social History Observation Description Sex Assigned At Female Social History HIV Risk Assessment Social Info Question Answer Notes Additional Questions Is an HIV Risk Assessment being c onducted? Yes Have you been tested for HIV before? Yes Did you have a blood transfusion prior to 1985? No Do you have an unlicensed body piercing or tattoo? No Reproductive Life Plan: Social Info Question Answer Notes Reproductive Life Plan: Do you want to have children? No How sure are you that you will be able to use your control method without any problems? Sure Human Trafficking: Social Info Question Answer Notes Human Trafficking Experienced: No PrEP for HIV: Social Info Question Answer Notes PrEP for HIV Is the client juan smalls in beginning/continuing PrEP for HIV? No Sexual History: Social Info Question Answer Notes Sexual History: Sexual History Reviewed: Partner s, Practices, Protection/Past STIs Currently sexually active? Yes Sexually active with: Men Number of male partners 1 Your sexual activities include: oral intercourse, vaginal intercourse Do you use condoms? No Date of last unprotected intercourse: 07/04/2024 Number of partners in past 3 months: 2 Number of partners in past year: 3 Does your partner(s) currently have any STIs? No Completed Gardasil vaccination series? Yes Counseling Provided: Social Info Question Answer Notes Counseling Provided Please indicate the length of time, in minutes, that counseling was provided. 7 Counseling Was Provided By: santa Drugs/Alcohol: Social Info Question Answer Notes DO NOT USE Drug/Alcohol Use Do you or have you used drugs or alcohol? No, neither drugs nor alcohol Drug/Alcohol Use Do you or have you u sed drugs? No Do you or have you used alcohol? No Food Access: Social Info Question Answer Notes Food Access The Client's current access to food is Secure Food Access Relationships: Social Info Question Answer Notes Relationships Has the client exper ienced any of the following: Client has never experienced harmful relationships Housing Social Info Question Answer Notes Housing The client's current living situation is: stable housing Tobacco Use: Social Info Question Answer Notes Tobacco Use: Do you/have you used tobacco? No Encounters Encounter Location Date Provider Diagnosis [facility] [address] [place] [address] [phone] 03/08/2024 KAYKAY PATTEN Encounter for prescription of emergency contraception Z30.012 [facility] [address] [place] [address] [phone] 07/07/2024 Stacy Jovel Encounter for screening for [...] patient Ordering medication/ test/proced ures Established Patient: [id number] 10 Minutes 07/07/2024 Counseling, unspecified (ICD-10 - Z71.9) Spent 10 minutes doing the following: Chart Prep Obtaining/r eviewing history Counseling/ Coordinatio n of Care Documenting the visit Educating the patient Ordering medication/ test/proced ures Established Patient: [id number] 10 Minutes 07/07/2024 Other problems related to lifestyle (ICD-10 - Z72.89) Spent 10 minutes doing the following: Chart Prep Obtaining/r eviewing history Counseling/ Coordinatio n of Care Documenting the visit Educating the patient Ordering medication/ test/proced ures Established Patient: [id number] 10 Minutes 07/07/2024 HIV Screening (ICD-10 - Z11.4) Spent 10 minutes doing the following: Chart Prep Obtaining/r eviewing history Counseling/ Coordinatio n of Care Documenting the visit Educating the patient Ordering medication/ test/proced ures Established Patient: [id number] 10 Minutes 07/07/2024 Screening for other viral diseases (ICD-10 - Z11.59) Spent 10 minutes doing the following: Chart Prep Obtaining/r eviewing history Counseling/ Coordinatio n of Care Documenting the visit Educating the patient Ordering medication/ test/proced ures Established Patient: [id number] 10 Minutes 03/08/2024 Other Discussed STI risks, screening, and safe sex Plan Of Treatment No Information Insurance Providers Payer Name Payer Address Payer Phone Subscriber Number Group Number Insured Name Patient Relationship to Insured Coverage Start Date Coverage End Date [place] MEDICAID ATT CLAIMS [address] [place] [id number] Filemon Helton Self - patient is the insured Medical (General) History Surgical History Surgery Date(Month/Year) c section x 2
== END 2024-11-07 08:48 | disposition home or self-care (01) ==
LOC: HO.HWS 08:07
PROVIDERS: PCP Physician Assistant; Visit Provider Advanced Practice Midwife
DX: R68.82 Decreased libido (principal); N90.89 Other specified noninflammatory disorders of vulva and perineum; N64.3 Galactorrhea not associated with childbirth
CPT/HCPCS: 99213

== ENCOUNTER → 2024-11-07 08:06 | Outpatient (BNVA) | payer OTHER, SELFPAY | PROVIDERS: PCP Physician Assistant; Visit Provider Advanced Practice Midwife | DX: R68.82 Decreased libido (principal); N90.89 Other specified noninflammatory disorders of vulva and perineum; N64.3 Galactorrhea not associated with childbirth | CPT/HCPCS: 99212 ==

== ENCOUNTER 2024-11-13 15:12 | Outpatient (REF) | payer OTHER, SELFPAY ==
[2024-11-13 15:28] LABS: MANUAL DIFF FLAG NO
[2024-11-13 16:12] LABS: Hematocrit 33.5 % (37.0-47.0); Hemoglobin 10.3 g/dl (12.0-16.0); Imm Gran Abs Auto 0.01 X10*3/uL (0.00-0.03); Imm Gran Pct Auto 0.2 % (0.0-0.4); Lymphocytes Absolute Auto 3.2 X10*3/uL (1.2-4.9); Mean Corpuscular HGB Conc 30.7 g/dl (31.0-35.0); Mean Corpuscular Hemoglobin 26.7 pg (27.0-33.0); Mean Corpuscular Volume 86.8 fL (80.0-98.0); NRBC Abs Auto 0.000 X10*3/uL (0.0-0.012); NRBC Pct Auto 0.0 /100WBC (0.0-0.2); Platelet Count 490 X10*3/uL (160-400); Red Blood Count 3.86 X10*6/uL (4.20-5.50); White Blood Count 6.0 X10*3/uL (4.8-10.8)
[2024-11-13 17:05] LABS: Iron 79 mcg/dL (30-160); Percent Iron Saturation 21 % (15-50); Total Iron Binding Capacity 377 mcg/dL (228-428); Unsaturated Iron Binding 298 ug/dL
[2024-11-13 17:08] LABS: Ferritin 13 ng/mL (10-122)
[2024-11-13 17:23] LABS: Folate 10.5 ng/mL (> or = 4.0); Vitamin B12 651 pg/mL (200-900)
--- OUTSIDE RECORDS SUMMARY | 2024-11-13 20:41 | XMS_ITS | Patient Health Record ---
Author Organization [facility] Address [address] [facility] [address] [place], [place] [id number] Care Team Providers Care Residential Service Technician Name Role Phone KAYKAY PATTEN Unavailable [phone] Stacy Jovel Unavailable [phone] Allergies Allergen (clinical drug ingredient) Drug/Non Drug Allergy documented on EMR Reaction Allergy Type Onset Date Status Shellfish (FN) Shellfish-derived Products Unknown Drug Allergy Active Results Component Value Reference Range Notes T pallidum Screening [place] -[id number] Reviewed date:07/13/2024 12:37:36 PM Interpretation:Non-reactive Performing Lab:[facility], [address], [address], [employer], Phone - [phone], Director - [facility] Notes/Report: T pallidum Antibodies Non Reactive Non Reactive HIV Ab/p24 Ag with Reflex-[id number] Reviewed date:07/13/2024 12:37:26 PM Interpretation:Non-reactive Performing Lab:[facility], [address], [address], [employer], Phone - [phone], [facility] Notes/Report: HIV Ab/p24 Ag Screen Non Reactive Non Reactive HIV-1/HIV-2 antibodies and HIV-1 p24 antigen were NOT detected. There is no laboratory evidence of HIV infection. HIV Negative HCV Antibody RFX to Quant PC [id number] Reviewed date:07/13/2024 12:37:16 PM Interpretation:Non-reactive Performing Lab:[facility], [address], [address], [employer], Phone - [phone], [facility] Notes/Report: HCV Ab Non Reactive Non Reactive Interpretation: Not infected with HCV unless early or acute infection is suspected (which may be delayed in an immunocompromised individual), or other evidence exists to indicate HCV infection. Ct, Ng, Trich vag by CHELSEY-[id number] Reviewed date:07/13/2024 12:36:46 PM Interpretation:Negative Performing Lab:[facility] [place], [address], [address], [place], Phone - [phone], Director - [facility] Notes/Report: Chlamydia by CHELSEY Negative Negative Gonococcus by CHELSEY Negative Negative Trich vag by CHELSEY Negative Negative Ct/GC CHELSEY, Rectal-[id number] Reviewed date:07/13/2024 12:37:04 PM Interpretation:Negative Performing Lab:[facility] [place], [address], [address], [place], Phone - [phone], Director - [facility] Notes/Report: C. trachomatis, CHELSEY, Rectal Negative Negative N. gonorrhoeae, CHELSEY, Rectal Negative Negative Ct/GC CHELSEY, Pharyngeal-[id number] Reviewed date:07/13/2024 12:36:15 PM Interpretation:Negative Performing Lab:[facility] [place], [address], [address], [place], Phone - [phone], Director - [facility] Notes/Report: C. trachomatis, CHELSEY, Pharyn [...] No Encounters Encounter Location Date Provider Diagnosis [facility] [address] [place] [id number] 03/08/2024 KAYKAY PATTEN Encounter for prescription of emergency contraception Z30.012 [facility] [address] [place] [address] [id number] 07/07/2024 Stacy Jovel Encounter for screening for [...] patient Ordering medication/ test/proced ures Established Patient: [id number] 10 Minutes 07/07/2024 Counseling, unspecified (ICD-10 - Z71.9) Spent 10 minutes doing the following: Chart Prep Obtaining/r eviewing history Counseling/ Coordinatio n of Care Documenting the visit Educating the patient Ordering medication/ test/proced ures Established Patient: [id number] 10 Minutes 07/07/2024 Other problems related to lifestyle (ICD-10 - Z72.89) Spent 10 minutes doing the following: Chart Prep Obtaining/r eviewing history Counseling/ Coordinatio n of Care Documenting the visit Educating the patient Ordering medication/ test/proced ures Established Patient: [id number] 10 Minutes 07/07/2024 HIV Screening (ICD-10 - Z11.4) Spent 10 minutes doing the following: Chart Prep Obtaining/r eviewing history Counseling/ Coordinatio n of Care Documenting the visit Educating the patient Ordering medication/ test/proced ures Established Patient: [id number] 10 Minutes 07/07/2024 Screening for other viral diseases (ICD-10 - Z11.59) Spent 10 minutes doing the following: Chart Prep Obtaining/r eviewing history Counseling/ Coordinatio n of Care Documenting the visit Educating the patient Ordering medication/ test/proced ures Established Patient: [id number] 10 Minutes 03/08/2024 Other Discussed STI risks, screening, and safe sex Plan Of Treatment No Information Insurance Providers Payer Name Payer Address Payer Phone Subscriber Number Group Number Insured Name Patient Relationship to Insured Coverage Start Date Coverage End Date [place] MED[place] ATT CLAIMS [address] [place] [id number] Filemon Helton Self - patient is the insured Medical (General) History Surgical History Surgery Date(Month/Year) c section x 2
== END 2024-11-13 15:13 | disposition home or self-care (01) ==
LOC: HO.LAB 15:12
PROVIDERS: PCP Physician Assistant; Visit Provider Advanced Practice Midwife
DX: D50.9 Iron deficiency anemia, unspecified (principal); E53.8 Deficiency of other specified B group vitamins; N64.3 Galactorrhea not associated with childbirth
CPT/HCPCS: 36415; 82607; 82728; 82746; 83540; 84146; 84702; 85025

== ENCOUNTER 2024-11-23 07:10 | Outpatient (REF) | payer OTHER, SELFPAY ==
[2024-11-23 12:41] LABS: Bacterial Vaginosis PCR NEGATIVE (Negative); Candida Group PCR NOT DETECTED (Not Detect); Candida glab krusei PCR NOT DETECTED (Not Detect); Trichomonas vaginalis PCR NOT DETECTED (Not Detect)
== END 2024-11-23 07:11 | disposition home or self-care (01) ==
LOC: HO.LAB 07:10
PROVIDERS: Nurse Practitioner Family; PCP Physician Assistant
DX: N76.0 Acute vaginitis (principal)
CPT/HCPCS: 81515; 99212

== ENCOUNTER 2024-11-23 07:10 | Outpatient (AMB) | payer OTHER, SELFPAY ==
[2024-11-23 07:11] VITALS: BP 118/70; PULSE 84; RESP 16; TEMP 36.8; O2SAT 98; BMI 34.5
--- NOTE | 2024-11-23 07:11 | AM.OFFWIN_ITS ---
Intake Vital Signs 11/23/24 07:11 Height 4 ft 11 in Weight 171 lb BMI 34.5 BP 118/70 Blood Pressure Location Rt brachial Position Sitting Respiration 16 Pulse 84 Pulse Source Pulse Oximeter Temp 98.2 F Temp Source Oral Pulse Oximetry (%) 98 Oxygen Delivery Method Room Air Intake Visit Reasons: EP Yeast infection? Intake Note: Pt is here today c/o ? yeast infection: vaginal itchyness x2wks Patient Tobacco Use Status: Never used Tobacco Allergies shellfish derived (SHELLFISH DERIVED) Allergy (Mild, Verified 11/23/24 07:12) ITCHING bupropion (From Wellbutrin) Allergy (Unknown, Verified 11/23/24 07:12) Seizure nifedipine Adverse Reaction (Intermediate, Verified 11/23/24 07:12) Headaches HPI HPI Comments History of Present Illness Details 29 y/o Female patient who presents to [facility] walk in clinic with c/o Vaginal itching with discharge for 2 weeks. Denies any Urinary symptoms today. Sexually active with one Male partner - no protection. Denies any STI concern. Denies any recent Abx use. [facility] Medical History (Updated 11/23/24 @ 07:21 by Alyssa Castro NP) Vaginitis and vulvovaginitis Galactorrhea Right ankle sprain Encounter for screening H/O partial seizures Anemia Surgical History Hx of wisdom tooth extraction Hx of section Family History Mother History of mental problems Brother Hx of bipolar disorder Maternal Aunt History of breast cancer in female Paternal Grandmother Family hx-stroke Maternal Aunt Breast cancer Stomach cancer Social History Household Members: Spouse and Children Housing: Apartment Are you a primary companion caregiver to a significant other at home: No Do you presently have visiting nurse or other home services: No Alcohol intake: current Alcohol intake frequency: holidays/special occasions only Patient Tobacco Use Status: Never used Tobacco e-Cigarette/Vaping Use: Never Used Second Hand Smoke Exposure: No service: No 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al status: unemployed Cognitive needs: No Hearing needs: No Vision needs: Yes (glasses) Female Reproductive History Menstrual Age of Menarche: 15 Review of Systems Const All systems reviewed & are unremarkable except as noted in HPI and below Physical Exam Vital Signs: Last Vital Signs Temp 98.2 F 11/23/24 07:11 Pulse 84 11/23/24 07:11 Resp 16 11/23/24 07:11 BP 118/70 11/23/24 07:11 Pulse Ox 98 11/23/24 07:11 Oxygen Delivery Method Room Air 11/23/24 07:11 BMI result Body Mass Index 34.5 Const General: no acute distress Nutritional Appearance: overweight Orientation/consciousness: patient oriented x3 GI Inspection: Yes obesity Palpation (GI): Soft to palpation, not firm, nontender, no guarding, not rigid and No hepatosplenomegaly present Auscultation: normal bowel sounds External Female Exam: erythema and externally tender Speculum Exam - Vagina: normal palpation, abnormal vaginal discharge malodorous and yellow and erythematous Speculum Exam - Cervix: normal palpation, Cervical os open and Abnormal cervical discharge present yellow and malodorous Bimanual exam- vagina & uterus: normal palpation, uterine size normal, normal palpation and no cervical motion tenderness OB/external & speculum: Cervical os open Neuro General: patient oriented x3, gait normal and moves all extremities Psych Speech and movement: Normal speech and movement present Assessment & Plan Assessment & Plan (1) Vaginitis and vulvovaginitis: Code(s): N76.0 - Acute vaginitis Plan: Exam consistent with BV/YEAST. Will start Treatment for Both today Ordered Vaginal Panel Educated on safer Sex practices. Educated on ways to prevent frequent Vaginal infections. Advised not to drink Alcohol or any fluid with Alcohol while taking Metronidazole. Orders: Orders 2 Bacterial Vaginosis Panel Today N76.0 - Acute vaginitis Medications: New metronidazole 500 mg PO BID 14 tabs 0RF 7 days N76.0 - Acute vaginitis fluconazole 150 mg PO Q3D 3 tabs 2RF 3 days N89.8 - Other specified noninflammatory disorders of vagina Coding Level of Care Code Est Pt Level 4 (03980) Diagnoses Vaginitis and vulvovaginitis N76.0 Time Spent (min) 20
--- OUTSIDE RECORDS SUMMARY | 2024-11-23 07:12 | XMS_ITS | Patient Health Record ---
Author Organization [facility] Address [address] [facility] [address] [place], [place] [id number] Care Team Providers Care Dye Automation Operator Name Role Phone KAYKAY PATTEN Unavailable [phone] Stacy Jovel Unavailable [phone] Allergies Allergen (clinical drug ingredient) Drug/Non Drug Allergy documented on EMR Reaction Allergy Type Onset Date Status Shellfish (FN) Shellfish-derived Products Unknown Drug Allergy Active Results Component Value Reference Range Notes T pallidum Screening [place] -[id number] Reviewed date:07/13/2024 12:37:36 PM Interpretation:Non-reactive Performing Lab:[facility], [address], [address], [email or web address], Phone - [phone], Director - [facility] Notes/Report: T pallidum Antibodies Non Reactive Non Reactive HIV Ab/p24 Ag with Reflex-08 [id number] Reviewed date:07/13/2024 12:37:26 PM Interpretation:Non-reactive Performing Lab:[facility], [address], [address], [email or web address], Phone - [phone], [facility] Notes/Report: HIV Ab/p24 Ag Screen Non Reactive Non Reactive HIV-1/HIV-2 antibodies and HIV-1 p24 antigen were NOT detected. There is no laboratory evidence of HIV infection. HIV Negative HCV Antibody RFX to Quant PC [id number] Reviewed date:07/13/2024 12:37:16 PM Interpretation:Non-reactive Performing Lab:[facility] [place], [address], [address], [email or web address], Phone - [phone], [facility] Notes/Report: HCV Ab Non Reactive Non Reactive Interpretation: Not infected with HCV unless early or acute infection is suspected (which may be delayed in an immunocompromised individual), or other evidence exists to indicate HCV infection. Ct, Ng, Trich vag by CHELSEY-[id number] Reviewed date:07/13/2024 12:36:46 PM Interpretation:Negative Performing Lab:[facility] [place], [address], [address], [place], Phone - [phone], Director - [facility] Notes/Report: Chlamydia by CHELSEY Negative Negative Gonococcus by CHELSEY Negative Negative Trich vag by CHELSEY Negative Negative Ct/GC CHELSEY, Rectal-[id number] Reviewed date:07/13/2024 12:37:04 PM Interpretation:Negative Performing Lab:[facility] [place], [address], [address], [place], Phone - [phone], Director - [facility] Notes/Report: C. trachomatis, CHELSEY, Rectal Negative Negative N. gonorrhoeae, CHELSEY, Rectal Negative Negative Ct/GC CHELSEY, Pharyngeal-[id number] Reviewed date:07/13/2024 12:36:15 PM Interpretation:Negative Performing Lab:[facility] [place], [address], [address], [place], Phone - [phone], Director - [facility] Notes/Report: C. trachomatis, CHELSEY, Pharyn Negative Negative [...] No Encounters Encounter Location Date Provider Diagnosis [facility] [address] [place] [address] [id number] 03/08/2024 KAYKAY PATTEN Encounter for prescription of emergency contraception Z30.012 [facility] [address] [place] [address] [id number] 07/07/2024 Stacy Jovel Encounter for screening for [...] patient Ordering medication/ test/proced ures Established Patient: [id number] 10 Minutes 07/07/2024 Counseling, unspecified (ICD-10 - Z71.9) Spent 10 minutes doing the following: Chart Prep Obtaining/r eviewing history Counseling/ Coordinatio n of Care Documenting the visit Educating the patient Ordering medication/ test/proced ures Established Patient: [id number] 10 Minutes 07/07/2024 Other problems related to lifestyle (ICD-10 - Z72.89) Spent 10 minutes doing the following: Chart Prep Obtaining/r eviewing history Counseling/ Coordinatio n of Care Documenting the visit Educating the patient Ordering medication/ test/proced ures Established Patient: [id number] 10 Minutes 07/07/2024 HIV Screening (ICD-10 - Z11.4) Spent 10 minutes doing the following: Chart Prep Obtaining/r eviewing history Counseling/ Coordinatio n of Care Documenting the visit Educating the patient Ordering medication/ test/proced ures Established Patient: 63827 10 Minutes 07/07/2024 Screening for other viral diseases (ICD-10 - Z11.59) Spent 10 minutes doing the following: Chart Prep Obtaining/r eviewing history Counseling/ Coordinatio n of Care Documenting the visit Educating the patient Ordering medication/ test/proced ures Established Patient: [id number] 10 Minutes 03/08/2024 Other Discussed STI risks, screening, and safe sex Plan Of Treatment No Information Insurance Providers Payer Name Payer Address Payer Phone Subscriber Number Group Number Insured Name Patient Relationship to Insured Coverage Start Date Coverage End Date [place] MEDICAID ATT CLAIMS [address] [place] [id number] Filemon Helton Self - patient is the insured Medical (General) History Surgical History Surgery Date(Month/Year) c section x 2
== END 2024-11-23 07:46 | disposition home or self-care (01) ==
PROVIDERS: PCP Physician Assistant; Visit Provider Nurse Practitioner Family
DX: N76.0 Acute vaginitis (principal)

== ENCOUNTER 2024-11-29 12:46 | Outpatient (AMB) | payer OTHER, SELFPAY ==
--- NOTE | 2024-11-29 12:47 | A.OFFVIS_ITS ---
Intake Visit Reasons: TV control consult/lab results Intake Note: cell #[phone] Environmental Engineering Intern: Environmental Engineering Intern Present Allergies shellfish derived (SHELLFISH DERIVED) Allergy (Mild, Verified 11/29/24 12:47) ITCHING bupropion (From Wellbutrin) Allergy (Unknown, Verified 11/29/24 12:47) Seizure nifedipine Adverse Reaction (Intermediate, Verified 11/29/24 12:47) Headaches Is last menstrual period known: Yes Last menstrual period: 11/02/24 HPI Comments Details: Tele Health Visit Total time I personally spent on visit and management today: 24 minutes. Time spent included review of pertinent office notes in the electronic health record; review of laboratory and imaging results; review of personal family medical history; discussing diagnosis and plan of care with the patient; documenting the encounter in the EMR. Patient presents to discuss: Follow up lab results and to discuss control. History of prior breast discharge. OCP user has missed pills at times considering a NuvaRing. She denies any contraindications to control such as: migraines with aura, history of DVT or pulmonary emboli, high blood pressure, liver disease, thrombolic disorders, Lupus, +DANNA, breast cancer, or smoking. Concern regarding history of low libido and use of control. [facility] Medical History (Updated 11/23/24 @ 07:21 by Alyssa Castro NP) Vaginitis and vulvovaginitis Galactorrhea Right ankle sprain Encounter for screening H/O partial seizures Anemia Surgical History Hx of wisdom tooth extraction Hx of section Family History Mother History of mental problems Brother Hx of bipolar disorder Maternal Aunt History of breast cancer in female Paternal Grandmother Family hx-stroke Maternal Aunt Breast cancer Stomach cancer Social History Household Members: Spouse and Children Housing: Apartment Are you a primary managed care specialist to a significant other at home: No Do you presently have visiting nurse or other home services: No Alcohol intake: current Alcohol intake frequency: holidays/special occasions only Patient Tobacco Use Status: Never used Tobacco e-Cigarette/Vaping Use: Never Used Second Hand Smoke Exposure: No service: No 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al status: unemployed Cognitive needs: No Hearing needs: No Vision needs: Yes (glasses) Female Reproductive History Menstrual Age of Menarche: 15 Date of last menstrual period: 11/02/24 Review of Systems Const All systems reviewed & are unremarkable except as noted in HPI and below Endo Reports no additional complaints Physical Exam Const General: cooperative, healthy appearing and no acute distress Psych Appearance: well kempt Attitude: cooperative Thought process: Normal thought process present Telehealth Telehealth Telehealth Platform: Videostrip Location of provider rendering services: practice address Location of patient: address on file Patient Identification confirmed using: Name, : Yes Telehealth method: video Patient verbally consented to treatment: Yes Patient verbally consented to billing insurance company: Yes Patient informed of any privacy concerns related to visit: Yes Assessment & Plan Assessment & Plan (1) Counseling for initiation of control method: Code(s): Z30.09 - Encounter for other general counseling and advice on contraception Plan: Discussed: Starting NuvaRing in the 1st 5 days of her next menstrual cycle, no unprotected intimacy. If late for menses home test if positive follow up in the office. Reviewed side effects, warnings: go to ER if and loss of vision, blindness, severe headache, chest pain or difficulty breathing, severe abdominal pain, or any pain or swelling in an extremity. Plans to consider continue dosing method. Follow up 3 months for blood pressure check in office, call sooner if there is any concerns or questions. Unable to find statistical information while on video regarding low libido concerns and the use of NuvaRing. (2) Encounter to discuss test results: Code(s): Z71.2 - Person consulting for explanation of examination or test findings Plan Discussed: Prolactin level was 8.9 on 11/13/2024 to the normal range. Advised to monitor for any further symptoms and to call the office for further evaluation. The patient expressed understanding and agreement with the plan of care. All of her questions and concerns were addressed to the best of my ability. This note is constructed using voice recognition software. While every effort has been made to ensure accuracy, foreman shipping department errors may have been included. Coding Level of Care Code Tele Est Pt Level 3 (62843) Diagnoses Counseling for initiation of control method Z30.09 Encounter to discuss test results Z71.2
== END 2024-11-30 12:10 | disposition home or self-care (01) ==
LOC: HO.HWS 12:46
PROVIDERS: PCP Physician Assistant; Visit Provider Advanced Practice Midwife
DX: Z30.09 Encounter for other general counseling and advice on contraception (principal); Z71.2 Person consulting for explanation of examination or test findings
CPT/HCPCS: 99213

== ENCOUNTER 2024-12-14 08:21 | Outpatient (AMB) | payer OTHER, SELFPAY ==
--- OUTSIDE RECORDS SUMMARY | 2024-12-14 08:33 | XMS_ITS | Patient Health Record ---
Author Organization [facility] Address [address] [facility] [address] [place], [place] [id number] Care Team Providers Care Safety Scientist Name Role Phone KAYKAY PATTEN Unavailable [phone] Stacy Jovel Unavailable [phone] Allergies Allergen (clinical drug ingredient) Drug/Non Drug Allergy documented on EMR Reaction Allergy Type Onset Date Status Shellfish (FN) Shellfish-derived Products Unknown Drug Allergy Active Results Component Value Reference Range Notes T pallidum Screening [place] -[id number] Reviewed date:07/13/2024 12:37:36 PM Interpretation:Non-reactive Performing Lab:[facility], [address], [address], [place], Phone - [phone], [facility] Notes/Report: T pallidum Antibodies Non Reactive Non Reactive HIV Ab/p24 Ag with Reflex-08 [id number] Reviewed date:07/13/2024 12:37:26 PM Interpretation:Non-reactive Performing Lab:[facility], [address], [address], [place], Phone - [phone], [facility] - [facility] Notes/Report: HIV Ab/p24 Ag Screen Non Reactive Non Reactive HIV-1/HIV-2 antibodies and HIV-1 p24 antigen were NOT detected. There is no laboratory evidence of HIV infection. HIV Negative HCV Antibody RFX to Quant PC [id number] Reviewed date:07/13/2024 12:37:16 PM Interpretation:Non-reactive Performing Lab:[facility], [address], [address], [place], Phone - [phone], Director - [facility] Notes/Report: HCV Ab Non Reactive Non Reactive Interpretation: Not infected with HCV unless early or acute infection is suspected (which may be delayed in an immunocompromised individual), or other evidence exists to indicate HCV infection. Ct, Ng, Trich vag by CHELSEY-[id number] Reviewed date:07/13/2024 12:36:46 PM Interpretation:Negative Performing Lab:[facility], [address], [address], [place], Phone - [phone], Director - [facility] Notes/Report: Chlamydia by CHELSEY Negative Negative Gonococcus by CHELSEY Negative Negative Trich vag by CHELSEY Negative Negative Ct/GC CHELSEY, Rectal-[id number] Reviewed date:07/13/2024 12:37:04 PM Interpretation:Negative Performing Lab:[facility], [address], [address], [place], Phone - [phone], Director - [facility] Notes/Report: C. trachomatis, CHELSEY, Rectal Negative Negative N. gonorrhoeae, CHELSEY, Rectal Negative Negative Ct/GC CHELSEY, Pharyngeal-[id number] Reviewed date:07/13/2024 12:36:15 PM Interpretation:Negative Performing Lab:[facility], [address], [address], [place], Phone - [phone], Director - [facility] Notes/Report: C. trachomatis, CHELSEY, Pharyn Negative [...] No Encounters Encounter Location Date Provider Diagnosis [facility] [address] [place] [address] [id number] 03/08/2024 KAYAKY PATTEN Encounter for prescription of emergency contraception Z30.012 [facility] [address] [place] [address] [id number] 07/07/2024 Stacy Jovel Encounter for screening for [...] patient Ordering medication/ test/proced ures Established Patient: [id number] 10 Minutes 07/07/2024 Counseling, unspecified (ICD-10 - Z71.9) Spent 10 minutes doing the following: Chart Prep Obtaining/r eviewing history Counseling/ Coordinatio n of Care Documenting the visit Educating the patient Ordering medication/ test/proced ures Established Patient: 42386 10 Minutes 07/07/2024 Other problems related to lifestyle (ICD-10 - Z72.89) Spent 10 minutes doing the following: Chart Prep Obtaining/r eviewing history Counseling/ Coordinatio n of Care Documenting the visit Educating the patient Ordering medication/ test/proced ures Established Patient: 92522 10 Minutes 07/07/2024 HIV Screening (ICD-10 - Z11.4) Spent 10 minutes doing the following: Chart Prep Obtaining/r eviewing history Counseling/ Coordinatio n of Care Documenting the visit Educating the patient Ordering medication/ test/proced ures Established Patient: 24748 10 Minutes 07/07/2024 Screening for other viral diseases (ICD-10 - Z11.59) Spent 10 minutes doing the following: Chart Prep Obtaining/r eviewing history Counseling/ Coordinatio n of Care Documenting the visit Educating the patient Ordering medication/ test/proced ures Established Patient: 21557 10 Minutes 03/08/2024 Other Discussed STI risks, screening, and safe sex Plan Of Treatment No Information Insurance Providers Payer Name Payer Address Payer Phone Subscriber Number Group Number Insured Name Patient Relationship to Insured Coverage Start Date Coverage End Date [place] MEDICA[place] ATT CLAIMS [address] [place] [id number] Filemon Helton Self - patient is the insured Medical (General) History Surgical History Surgery Date(Month/Year) c section x 2
--- NOTE | 2024-12-14 08:47 | A.OFFVIS_ITS ---
Intake Visit Reasons: 6 month f/u Allergies shellfish derived (SHELLFISH DERIVED) Allergy (Mild, Verified 12/14/24 08:50) ITCHING bupropion (From Wellbutrin) Allergy (Unknown, Verified 12/14/24 08:50) Seizure nifedipine Adverse Reaction (Intermediate, Verified 12/14/24 08:50) Headaches Medication List - Last Reconciled 12/14/24 by Lissy Bustillos CNP etonogestrel-ethinyl estradiol 0.12-0.015 mg/24 hr (NuvaRing) 1 vag ring vaginal Q4W 3 weeks ferrous sulfate 325 mg PO DAILY 90 days fluconazole 150 mg PO Q3D 3 days hydroxyzine HCl 20 mg (2 x 10 mg) PO BEDTIME PRN lamotrigine 100 mg PO DAILY metronidazole 500 mg PO BID 7 days HPI Comments Details: 29-year-old woman with complex partial seizure disorder (symptoms included confusion, spacing out, getting lost while driving, and similar episodes. The symptoms happened when she was put on Wellbutrin. Once that was stopped she stopped having the symptoms) and migraines. She was here with more headaches and episodes of blacking out. She was seen at [facility] in 09/2024 at the recommendation of urgent care for episodes of blacking out and had CT scan done. She describes the episodes of blacking out as vision going black and sometimes with dots in her vision lasting about 5-10 minutes. She is fully aware and alert when it happens, and says she always has a headache. Episodes happen once every 2-3 weeks and may be triggered by stress. She reports having significant amount of stress, and she was working with therapist and psychiatrist. She was prescribed lamotrigine for mood. Headaches were happening almost every day. Pain usually one sided, usually left and behind eye, throbbing or pressure-type with some photophobia and sonophobia, and occasionally nausea. She also occasionally had some scalp parasethesia. Sumatriptan as needed helped in the past, but she ran out of medication. She was not taking OTC medications as they did not help. Sleep was not so good. [facility] Medical History (Updated 12/14/24 @ 08:49 by Lissy Bustillos CNP) Vaginitis and vulvovaginitis Galactorrhea Right ankle sprain Encounter for screening H/O partial seizures Anemia Surgical History Hx of wisdom tooth extraction Hx of section Family History Mother History of mental problems Brother Hx of bipolar disorder Maternal Aunt History of breast cancer in female Paternal Grandmother Family hx-stroke Maternal Aunt Breast cancer Stomach cancer Social History Household Members: Spouse and Children Housing: Apartment Are you a primary administrator health care facility to a significant other at home: No Do you presently have visiting nurse or other home services: No Alcohol intake: current Alcohol intake frequency: holidays/special occasions only Patient Tobacco Use Status: Never used Tobacco e-Cigarette/Vaping Use: Never Used Second Hand Smoke Exposure: No service: No 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al status: unemployed Cognitive needs: No Hearing needs: No Vision needs: Yes (glasses) Female Reproductive History Menstrual Age of Menarche: 15 Review of Systems Const Denies chills, Denies daytime sleepiness, Denies difficulty sleeping, Denies fatigue, Denies fever(s), Denies frequent falls, Reports headache(s), Denies i ncreased appetite, Denies poor appetite, Denies snoring, Denies weakness, Denies weight gain and Denies weight loss Eyes Denies loss of vision ENT Denies vertigo, Denies dizziness and Reports headache(s) Card Denies chest pain at rest, Denies chest pain with activity, Denies syncope, Denies leg edema and Denies palpitations Resp Denies snoring GI Denies constipation, Denies heartburn, Denies diarrhea and Denies nausea Denies urinary frequency, Denies urinary incontinence and Denies urinary urgency Musc Denies abnormal gait, Denies numbness and Denies tingling Skin/Breast Denies dry skin and Denies rash Neuro Denies abnormal gait, Denies vertigo, Denies dizziness, Denies syncope, Denies frequent falls, Reports headache(s), Denies lack of coordination, Denies loss of vision, Denies memory loss, Denies numbness, Denies restless legs, Denies seizure-like activity, Denies tingling, Denies paresthesias, Denies tremor(s) and Denies weakness Psych Denies anxiety, Denies depression, Denies auditory hallucinations, Denies memory loss, Denies visual hallucinations and Denies suicidal ideation Endo Denies fatigue and Denies palpitations Physical Exam Const Other: General Appearance:? normal, in no acute distress. Skin:? no rashes, no significant birthmarks. Heart:? S1, S2 normal, no murmurs. Lungs:? clear anteriorly and posteriorly. Extremities:? no edema. Psych:? alert, oriented, cognitive function intact, cooperative with exam. Neuro Other: Mental Status:?Normal attention, orientation, memory and affect.? Cranial Nerves:?Pupils are equal, round and reactive to light. External occular muscles are intact. Visual keys are full. Face is symmetrical. Facial sensations are normal. Tongue is midline. Palate elevates symmetrically. Shoulder shrugging is normal. Hearing to bedside conversation is normal. Sensory Exam:?....? Coordination:?No ataxia,?no titubation.? Gait Exam: Within normal limits. Extrapyramidal System:?No tremor, rigidity with normal facial expressions.? Pronator Drift:?Not present.? Involuntary Movements:?No tremors seen.? Speech:?Normal.? Results Reviewed Results Reviewed: [address] [address] [address] Scan Report Signed Patient: Filemon Helton MR#: [id number] : 1995 Acct:[id number] Age/Sex: 29 / F ADM Date: 09/30/24 Loc: HO.ED Attending Dr: Ordering Physician: Tracey Das MD Date of Service: 09/30/24 Procedure(s): CT head/brain wo IV con Accession Number(s): [id number] cc: Justice Raygoza PA-C; Tracey Das MD~ Report Number: [id number]: Total DLP = 659.00 mGy-cm CLINICAL HISTORY: dick[facility] CT head without contrast. COMPARISON: None provided. FINDINGS: Mucosal thickening present within the ethmoid and maxillary sinuses. Mastoid air cells are clear. No calvarial fracture. No evidence for mass or mass effect. No intracranial hemorrhage or abnormal extra-axial fluid collection. No evidence of hydrocephalus. The basilar cisterns are patent. Posterior fossa appears unremarkable. IMPRESSION: 1. No acute intracranial findings. This document has been electronically signed by: Cristi Crawford MD on 09/30/2024 14:00:22 Laboratory Tests 10/10/24 11/13/24 19:36 15:25 WBC 6.0 RBC 3.86 L Hgb 10.3 L Hct 33.5 L MCV 86.8 MCH 26.7 L MCHC 30.7 L RDW 16.4 H Plt Count 490 H MPV 9.2 L Sodium 144 Potassium 3.2 L Chloride 107 Carbon Dioxide 25 Anion Gap 15 BUN 9 Creatinine 0.69 Estimated GFR > 60 Random Glucose 91 Calcium 8.7 Total Bilirubin 0.7 AST 26 ALT 17 Alkaline Phosphatase 105 Total Protein 7.5 Albumin 4.3 Vitamin B12 651 Folate 10.5 MRI brain WO at [facility] in 2021: WNL Routine EEG at [facility] in Jan 2021: b/l [facility] EEG at [facility] in 2021: WNL with no events reported Assessment & Plan Assessment & Plan (1) Migraines: Code(s): G43.909 - Migraine, unspecified, not intractable, without status migrainosus Category: Medical Qualifiers: Migraine type: unspecified Status migrainosus presence: without status migrainosus Intractability: not intractable Qualified Code(s): G43.909 - Migraine, unspecified, not intractable, without status migrainosus Plan: CT scan reviewed, no acute findings. Lab results reviewed which showed anemia for which she is taking iron supplement. Start topiramate 25mg 1 tablet at bedtime x1 week, then 1 tablet twice a day, use/side effects reviewed. Will send refill sumatriptan 50mg 1 tablet as needed for migraines. (2) Complex partial seizure: Code(s): G40.209 - Localization-related (focal) (partial) symptomatic epilepsy and epileptic syndromes with complex partial seizures, not intractable, without status epilepticus Category: Medical Plan: EEG ordered. Orders: Orders EEG Routine Today G40.209 - Localization-related (focal) (partial) symptomatic epilepsy and epileptic syndromes with complex partial seizures, not intractable, without status epilepticus Medications: New topiramate 25 mg orally 1 tablet at bedtime x1 week then 1 tablet twice a day; 60 tabs 2RF 30 days sumatriptan succinate take 1 tab at onset of headache; if no relief may repeat 1 tab after at least 2 hrs; PO 10 tabs 5RF 30 days Coding Level of Care Code Est Pt Level 4 (11469) Diagnoses Migraine without status migrainosus, not intractable, unspecified migraine type G43.909 Migraine type: unspecified Status migrainosus presence: without status migrainosus Intractability: not intractable Complex partial seizure G40.209
== END 2024-12-14 09:14 | disposition home or self-care (01) ==
LOC: HO.HSM 08:22
PROVIDERS: PCP Physician Assistant; Referring Provider Physician Assistant; Visit Provider Registered Nurse
DX: G43.909 Migraine, unspecified, not intractable, without status migrainosus (principal); G40.209 Localization-related (focal) (partial) symptomatic epilepsy and epileptic syndromes with complex partial seizures, not intractable, without status epilepticus
CPT/HCPCS: 99214

== ENCOUNTER → 2024-12-14 08:21 | Outpatient (BNVA) | payer OTHER, SELFPAY | PROVIDERS: PCP Physician Assistant; Referring Provider Physician Assistant; Visit Provider Registered Nurse | DX: G43.909 Migraine, unspecified, not intractable, without status migrainosus (principal); G40.209 Localization-related (focal) (partial) symptomatic epilepsy and epileptic syndromes with complex partial seizures, not intractable, without status epilepticus; Z79.899 Other long term (current) drug therapy | CPT/HCPCS: 99212 ==

== ENCOUNTER 2025-01-04 15:06 | Emergency (ER) | payer OTHER, SELFPAY ==
[2025-01-04 15:08] VITALS: BP 150/89; PULSE 84; RESP 18; TEMP 36.3; O2SAT 99; BMI 33.7
--- NOTE | 2025-01-04 15:08 | ED_ITS ---
HPI - General Adult General Chief complaint: Headache Stated complaint: migraine, bodyaches Time Seen by Provider: 01/04/25 17:45 Source: patient Mode of arrival: ambulatory Limitations: no limitations History of Present Illness ED Provider: Dr. Baldwin [facility] narrative: 29-year-old female presented hospital today for evaluation of headache. She describes as a pressure-like headache in bilateral temporal area. Consistent with her migraine. She does have symptoms of photophobia. She is also having some body aches as well. She did attempt to take the sumatriptan. However felt her throat began to hurt. She thinks it may be an adverse medication reaction. Because of her symptoms is persistent. Patient's presents to the ER for evaluation. The throat sensation has improved over time. Related Data Home Medications ?Medication ?Instructions ?Recorded ?Confirmed lamotrigine 100 mg tablet 100 mg PO DAILY 07/11/24 Previous Rx's ?Medication ?Instructions ?Recorded hydroxyzine HCl 10 mg tablet 20 mg (2 x 10 mg) PO BEDT [place] PRN 06/24/22 for insomnia #30 tabs ferrous sulfate 325 mg (65 mg 325 mg PO DAILY 90 days #90 tabs 07/11/24 iron) tablet fluconazole 150 mg tablet 150 mg PO Q3D 3 days #3 tabs 11/23/24 metronidazole 500 mg tablet 500 mg PO BID 7 days #14 t abs 11/23/24 etonogestrel 0.12 mg-ethinyl 1 vag ring vaginal Q4W 3 weeks #1 11/30/24 estradiol 0.015 mg/24 hr vaginal ea ring (NuvaRing) sumatriptan succinate 50 mg tablet See Rx Instructions PO .COMPLEX 30 12/14/24 days #10 tabs topiramate 25 mg tablet 25 mg PO .COMPLEX 30 days #6 0 tabs 12/14/24 ferrous sulfate 325 mg (65 mg 325 mg PO BID #120 tabs 12/18/24 iron) tablet Allergies Allergy/AdvReac Type Severity Reaction Status Date / Time shellfish derived (SHELLFISH Allergy Mild ITCHING Verified 01/04/25 15:09 DERIVED) bupropion (From Wellbutrin) Allergy Unknown Seizure Verified 01/04/25 15:09 nifedipine AdvReac Intermediate Headaches Verified 01/04/25 15:09 Review of Systems 2 Review of Systems: Pertinent review of systems as mentioned in HPI. All other system otherwise negative. [facility] Past Medical History [facility] Narrative: Medical history as mentioned in HPI Medical History (Updated 01/04/25 @ 21:29 by Juliet Baldwin DO) Vaginitis and vulvovaginitis Galactorrhea Right ankle sprain Encounter for screening H/O partial seizures Anemia Surgical History Hx of wisdom tooth extraction Hx of section Family History Family History Mother History of mental problems Brother Hx of bipolar disorder Maternal Aunt History of breast cancer in female Paternal Grandmother Family hx-stroke Maternal Aunt Breast cancer Stomach cancer Social History Social History Household Members: Spouse and Children Housing: Apartment Are you a primary physician assistant primary care to a significant other at home: No Do you presently have visiting nurse or other home services: No Alcohol intake: current Alcohol intake frequency: holidays/special occasions only Patient Tobacco Use Status: Never used Tobacco e-Cigarette/Vaping Use: Never Used Second Hand Smoke Exposure: No Advance Directives: No Advance Directives Information Provided: No Do you have a plan to hurt others: No Plan service: No 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al status: unemployed Cognitive needs: No Hearing needs: No Vision needs: Yes (glasses) Physical Exam ED Exam Exam: General: Pleasant, no distress, interacting appropriately Head: Normacephalic, atraumatic ENT: oral mucosa moist, neck supple, no tracheal deviation Cardiovascular: regular rate, regular rhythm, no murmurs, rubbing, gallops Respiratory: CTAB, no wheeze, rales, rhonchi Neurological: Awake and alert, no facial droop noted, no focal neurological deficits Skin: Warm and dry Psychiatric: Appropriate mood and thoughts Vital Signs: Vital Signs - 24 hr 01/04/25 15:08 01/04/25 17:12 01/04/25 20:09 Temperature 97.3 F 98.2 F 98.3 F Pulse Rate 84 85 75 Respiratory Rate 18 16 16 Blood Pressure 150/89 H 124/69 142/87 H Pulse Oximetry 99 100 99 Oxygen Delivery Method Room Air Room Air Room Air BMI result Body Mass Index 33.7 Course Course Course Narrative: Rapid medical examination performed in triage by Kimmy Caballero PA-C: Patient is a 29 year old assigned female at presenting to the emergency department with a migraine headache and generalized body aches. Detailed physical exam and review of systems are deferred to the director market research. Labs and swabs ordered. Patient placed back in the waiting room pending room availability and results. Medications Administered Discontinued Medications Generic Name Dose Route Start Last Admin Trade Name Frejay PRN Reason Stop Dose Admin Sodium Chloride 1,000 mls @ 999 mls/hr 01/04/25 19:15 01/04/25 20:22 Ns IV 01/04/25 20:15 999 mls/hr .Q1H1M DONNA Administration Magnesium Sulfate 2 gm in 50 mls @ 25 mls/hr 01/04/25 19:15 01/04/25 20:22 Magnesium Sulfate/H2o IV 01/04/25 21:14 25 mls/hr ONCE ONE Administration Ketorolac Tromethamine 15 mg 01/04/25 19:15 01/04/25 20:22 Ketorolac Tromethamine 15 Mg/Ml Vial IVPUSH 01/04/25 19:16 15 mg ONCE ONE Administration Metoclopramide HCl 5 mg 01/04/25 19:15 01/04/25 20:22 Metoclopramide Hcl 10 Mg/2 Ml Vial IV 01/04/25 19:16 5 mg ONCE ONE Administration Medical Decision Making Medical Decision Making MDM Narrative: 29-year-old female presented hospital today for evaluation of headache and migraine I suspect patient likely has migraine exacerbation does time. IV Toradol, IV Reglan IV magnesium will be provided to the patient does time. Patient's CBC does show some signs of anemia. No sign of significant change in chemistry. Upon re-evaluation the patient stated her headache has completely resolved. We will plan to discharge patient with a close follow up with her primary care doctors. She agrees and understands this plan all questions were addressed. Differential Diagnosis Differential Diagnoses: The differential diagnosis associated with the presentation includes Migraine, tension headache, cluster headache Lab Data MDM Lab Attestation statement: I reviewed the patient's lab results. 01/04/25 15:41 01/04/25 15:41 Labs: Lab Results 01/04/25 Range/Units 15:41 WBC 5.8 (4.8-10.8) X10*3/uL RBC 4.02 L (4.20-5.50) X10*6/uL Hgb 10.7 L (12.0-16.0) g/dl Hct 34.9 L (37.0-47.0) % MCV 86.8 (80.0-98.0) fL MCH 26.6 L (27.0-33.0) pg MCHC 30.7 L (31.0-35.0) g/dl RDW 16.4 H (11.0-16.0) % Plt Count 340 (160-400) X10*3/uL MPV 10.5 (9.4-12.3) fL Immature Gran % (Auto) 0.2 (0.0-0.4) % Neut % (Auto) 32.5 L (45-73) % Lymph % (Auto) 54.6 H (20-40) % [place] % (Auto) 9.4 (2-11) % Eos % (Auto) 2.4 (0-4) % Baso % (Auto) 0.9 (0-2) % Lymph # (Auto) 3.1 (1.2-4.9) X10*3/uL [place] # (Auto) 0.5 (0.1-1.2) X10*3/uL Eos # (Auto) 0.1 (0.0-0.4) X10*3/uL Baso # (Auto) 0.1 (0.0-0.2) X10*3/uL Abs Immat Gran (auto) 0.01 (0.00-0.03) X10*3/uL Absolute Neuts (auto) 1.9 L (2.0-8.3) x10*3/uL Absolute Nucleated RBC 0.000 (0.0-0.012) X10*3/uL Nucleated RBC % (auto) 0.0 (0.0-0.2) /100WBC Sodium 141 (135-145) mmol/L Potassium 4.3 D (3.3-5.1) mmol/L Chloride 109 H (96-108) mmol/L Carbon Dioxide 26 (22-29) mmol/L Anion Gap 10 L (12-20) BUN 12 (9-16) mg/dL Creatinine 0.82 (0.5-1.4) mg/dL Estim Creat Clear Calc 91.3 Estimated GFR > 60 Random Glucose 92 (60-115) mg/dL Calcium 9.3 D (8.4-10.2) mg/dL Magnesium 2.3 (1.6-2.6) mg/dL Total Bilirubin 0.3 (0.0-1.0) mg/dL AST 36 H (5-31) U/L ALT 24 (0-31) U/L Alkaline Phosphatase 74 (39-117) U/L Total Protein 7.8 (6.5-8.0) g/dL Albumin 4.3 (3.5-5.0) g/dL COVID-19 (CHELSEY) Negative (Negative) COVID-19 Clin Com See Note Influenza Type A (LACY) Negative (Negative) Influenza Type B (LACY) Negative (Negative) Influenza A & B Note See Note Chronic Conditions Migraine Discharge Plan Discharge Clinical Impression: Migraine Patient Disposition: Home, Self-Care Instructions: Migraine Headache (ED) Additional Instructions: Follow up with primary care doctor. There are maintenance migraine medication that are monoclonal antibody or Nurtec that may help with migraine. Prescriptions: No Action etonogestrel-ethinyl estradiol [NuvaRing] 0.12-0.015 mg/24 hr ring 1 vag ring vaginal Q4W 21 Days Qty: 1 2RF ferrous sulfate 325 mg (65 mg iron) Tablet 325 mg PO BID Qty: 120 3RF hydroxyzine HCl 10 mg tablet 20 mg PO BEDTIME PRN (Reason: for insomnia) Qty: 30 2RF lamotrigine 100 mg tablet 100 mg PO DAILY ferrous sulfate 325 mg (65 mg iron) tablet 325 mg PO DAILY 90 Days Qty: 90 1RF fluconazole 150 mg tablet 150 mg PO Q3D 3 Days Qty: 3 2RF metronidazole 500 mg tablet 500 mg PO BID 7 Days Qty: 14 0RF topiramate 25 mg tablet 25 mg PO .COMPLEX 30 Days Qty: 60 2RF Rx Instructions: 25 mg orally 1 tablet at bedtime x1 week then 1 tablet twice a day; sumatriptan succinate 50 mg tablet See Rx Instructions PO .COMPLEX 30 Days Qty: 10 5RF Rx Instructions: take 1 tab at onset of headache; if no relief may repeat 1 tab after at least 2 hrs; PO Print Language: [place]
[2025-01-04 15:47] LABS: MANUAL DIFF FLAG NO
[2025-01-04 15:49] LABS: Hematocrit 34.9 % (37.0-47.0); Hemoglobin 10.7 g/dl (12.0-16.0); Imm Gran Abs Auto 0.01 X10*3/uL (0.00-0.03); Imm Gran Pct Auto 0.2 % (0.0-0.4); Lymphocytes Absolute Auto 3.1 X10*3/uL (1.2-4.9); Mean Corpuscular HGB Conc 30.7 g/dl (31.0-35.0); Mean Corpuscular Hemoglobin 26.6 pg (27.0-33.0); Mean Corpuscular Volume 86.8 fL (80.0-98.0); NRBC Abs Auto 0.000 X10*3/uL (0.0-0.012); NRBC Pct Auto 0.0 /100WBC (0.0-0.2); Platelet Count 340 X10*3/uL (160-400); Red Blood Count 4.02 X10*6/uL (4.20-5.50); White Blood Count 5.8 X10*3/uL (4.8-10.8)
[2025-01-04 16:07] LABS: COVID-19 Test Negative (Negative); IDNOW Serial# 6674DD1D
[2025-01-04 16:22] LABS: Alanine Aminotransferase 24 U/L (0-31); Albumin Level 4.3 g/dL (3.5-5.0); Alkaline Phosphatase 74 U/L (39-117); Anion Gap 10 (12-20); Aspartate Amino Transferase 36 U/L (5-31); Blood Urea Nitrogen 12 mg/dL (9-16); Calcium 9.3 mg/dL (8.4-10.2); Carbon Dioxide 26 mmol/L (22-29); Chloride 109 mmol/L (96-108); Creatinine Clr Calc Pharmacy 91.3; Estimated Glomerular Filt Rate > 60; Magnesium 2.3 mg/dL (1.6-2.6); Potassium 4.3 mmol/L (3.3-5.1); Sodium 141 mmol/L (135-145); Total Protein 7.8 g/dL (6.5-8.0)
[2025-01-04 16:26] LABS: IDNOW Serial# 08D9AD1C; Influenza B2 Negative (Negative)
[2025-01-04 17:12] VITALS: BP 124/69; PULSE 85; RESP 16; TEMP 36.8; O2SAT 100
--- OUTSIDE RECORDS SUMMARY | 2025-01-04 18:51 | XMS_ITS | Patient Health Record ---
Author Organization [facility] Address [address] [place] [address] Care Team Providers Care Detective Private Eye Name Role Phone LETYKAYKAY Peter Unavailable [phone] Stacy Jovel Unavailable [phone] Allergies Allergen (clinical drug ingredient) Drug/Non Drug Allergy documented on EMR Reaction Allergy Type Onset Date Status Shellfish (FN) Shellfish-derived Products Unknown Drug Allergy Active Results Component Value Reference Range Notes Ct/GC CHELSEY, Pharyngeal-[id number] Reviewed date:07/13/2024 12:36:15 PM Interpretation:Negative Performing Lab:[facility], [address], [address], [place], Phone - [phone], Director - [facility] Notes/Report: C. trachomatis, CHELSEY, Pharyn Negative Negative N. gonorrhoeae, CHELSEY, Pharyn Negative Negative Ct/GC CHELSEY, Rectal-[id number] Reviewed date:07/13/2024 12:37:04 PM Interpretation:Negative Performing Lab:[facility], [address], [address], [place], Phone - [phone], Director - [facility] Notes/Report: C. trachomatis, CHELSEY, Rectal Negative Negative N. gonorrhoeae, CHELSEY, Rectal Negative Negative Ct, Ng, Trich vag by CHELSEY-[id number] Reviewed date:07/13/2024 12:36:46 PM Interpretation:Negative Performing Lab:[facility], [address], [address], [place], Phone - [phone], Director - [facility] Notes/Report: Chlamydia by CHELSEY Negative Negative Gonococcus by CHELSEY Negative Negative Trich vag by CHELSEY Negative Negative HCV Antibody RFX to Quant PC [id number] Reviewed date:07/13/2024 12:37:16 PM Interpretation:Non-reactive Performing Lab:[facility] [place], [address], [address], [place], Phone - [phone], Director - [facility] Notes/Report: HCV Ab Non Reactive Non Reactive Interpretation: Not infected with HCV unless early or acute infection is suspected (which may be delayed in an immunocompromised individual), or other evidence exists to indicate HCV infection. HIV Ab/p24 Ag with Reflex-[id number] Reviewed date:07/13/2024 12:37:26 PM Interpretation:Non-reactive Performing Lab:[facility] [place], [address], [address], [place], Phone - [phone], Director - [facility] Notes/Report: HIV Ab/p24 Ag Screen Non Reactive Non Reactive HIV-1/HIV-2 antibodies and HIV-1 p24 antigen were NOT detected. There is no laboratory evidence of HIV infection. HIV Negative T pallidum Screening [place] -[id number] Reviewed date:07/13/2024 12:37:36 PM Interpretation:Non-reactive Performing Lab:[facility] [place], [address], [address], [place], Phone - [phone], Director - [facility] Notes/Report: T pallidum Antibodies Non Reactive [...] No Encounters Encounter Location Date Provider Diagnosis [facility] [address] [place] [address] [id number] 03/08/2024 KAYKAY PATTEN Encounter for prescription of emergency contraception Z30.012 [facility] [address] [place] [address] [id number] 07/07/2024 Stacy Jovel Encounter for screening for [...] patient Ordering medication/ test/proced ures Established Patient: [id number] 10 Minutes 07/07/2024 Counseling, unspecified (ICD-10 - Z71.9) Spent 10 minutes doing the following: Chart Prep Obtaining/r eviewing history Counseling/ Coordinatio n of Care Documenting the visit Educating the patient Ordering medication/ test/proced ures Established Patient: [id number] 10 Minutes 07/07/2024 Other problems related to lifestyle (ICD-10 - Z72.89) Spent 10 minutes doing the following: Chart Prep Obtaining/r eviewing history Counseling/ Coordinatio n of Care Documenting the visit Educating the patient Ordering medication/ test/proced ures Established Patient: [id number] 10 Minutes 07/07/2024 HIV Screening (ICD-10 - Z11.4) Spent 10 minutes doing the following: Chart Prep Obtaining/r eviewing history Counseling/ Coordinatio n of Care Documenting the visit Educating the patient Ordering medication/ test/proced ures Established Patient: [id number] 10 Minutes 07/07/2024 Screening for other viral diseases (ICD-10 - Z11.59) Spent 10 minutes doing the following: Chart Prep Obtaining/r eviewing history Counseling/ Coordinatio n of Care Documenting the visit Educating the patient Ordering medication/ test/proced ures Established Patient: [id number] 10 Minutes 03/08/2024 Other Discussed STI risks, screening, and safe sex Plan Of Treatment No Information Insurance Providers Payer Name Payer Address Payer Phone Subscriber Number Group Number Insured Name Patient Relationship to Insured Coverage Start Date Coverage End Date [place] ATT CLAIMS [address] [place] [id number] Filemon Helton Self - patient is the insured Medical (General) History Surgical History Surgery Date(Month/Year) c section x 2
[2025-01-04 20:09] VITALS: BP 142/87; PULSE 75; RESP 16; TEMP 36.8; O2SAT 99
[2025-01-04] MEDS: Magnesium Sulfate/H2O 2 GM/50 ML PIGGYBACK IV (20:22)
[2025-01-04 21:49] VITALS: BP 142/87; PULSE 75; RESP 16; TEMP 36.8; O2SAT 99
== END 2025-01-04 21:49 | disposition home or self-care (01) ==
PROVIDERS: Physician Assistant Medical; Emergency Provider Student in an Organized Health Care Education/Training Program; PCP Physician Assistant
DX: G43.909 Migraine, unspecified, not intractable, without status migrainosus (principal); Z03.818 Encounter for observation for suspected exposure to other biological agents ruled out
CPT/HCPCS: 80053; 83735; 85025; 87502; 87635; 96365; 96375; 99284; J1885; J2765; J3475

== ENCOUNTER 2025-01-10 08:18 | Outpatient (AMB) | payer OTHER, SELFPAY ==
[2025-01-10 08:20] VITALS: BP 134/92; PULSE 83; TEMP 36.1; O2SAT 99; BMI 33.1
--- NOTE | 2025-01-10 08:20 | A.OFFPC_ITS ---
Vital Signs 01/10/25 08:20 Height 4 ft 11 in Weight 164 lb 2 oz BMI 33.1 BP 134/92 H Blood Pressure Location Lt brachial Position Sitting Pulse 83 Pulse Source Pulse Oximeter Temp 97.0 F Temp Source Temporal Artery Scan Pulse Oximetry (%) 99 Oxygen Delivery Method Room Air Intake Visit Reasons: [facility] 01/04 Intake Note: Patient is here to follow-up after a visit the emergency department at [facility] on 01/04/25 Neurosurgeon Required: No Apparel Rental Clerk: Not Required per policy Accompanied by: Self / Same As Patient Allergies sumatriptan Allergy (Intermediate, Verified 01/10/25 08:46) Nausea shellfish derived (SHELLFISH DERIVED) Allergy (Mild, Verified 01/10/25 08:46) ITCHING bupropion (From Wellbutrin) Allergy (Unknown, Verified 01/10/25 08:46) Seizure nifedipine Adverse Reaction (Intermediate, Verified 01/10/25 08:46) Headaches Medication List - Last Reconciled 01/10/25 by Justice Raygoza PA-C etonogestrel-ethinyl estradiol 0.12-0.015 mg/24 hr (NuvaRing) 1 vag ring vaginal Q4W 3 weeks ferrous sulfate 325 mg PO BID ferrous sulfate 325 mg PO DAILY 90 days hydroxyzine HCl 20 mg (2 x 10 mg) PO BEDTIME PRN lamotrigine 100 mg PO DAILY topiramate 25 mg orally 1 tablet at bedtime x1 week then 1 tablet twice a day; 30 days Tobacco use date assessed: 01/10/25 Dental Screening Dental Screen Date: 01/10/25 Did you have a dental visit in the last 12 months?: Yes Did you have a dental problem in the last 6 months where you did not have access to dental care?: No Was dental information given to patient?: Patient has dentist HPI [facility] 01/04 HPI Details Patient is a 29-year-old female here today for an ER follow up visit. Patient has a past medical history significant for generalized anxiety disorder, depression, obesity, iron deficiency anemia. Patient recently seen at the [place] [facility] for acute migraine. She reports that taking sumatriptan for the migraine made it excruciatingly worse, causing pain with blinking, walking, and touch. Associated symptoms included nausea and sensitivity to smells. The patient describes her migraines as occurring once or twice every one to two weeks. She believes stress is a possible trigger, though on this occasion she awoke with a pounding headache that started as temporal pressure. Head imaging from September was negative for intracranial masses but showed sinus thickening. She has a follow-up appointment with a neurologist next week. This morning, the patient experienced a significant amount of bright red blood with a bowel movement, which was associated with a cutting sensation during defecation. She continues to have rectal pain that feels like a cut. The patient has had two children. [facility] Medical History Vaginitis and vulvovaginitis Galactorrhea Right ankle sprain Encounter for screening H/O partial seizures Anemia Surgical History Hx of wisdom tooth extraction Hx of section Family History Mother History of mental problems Brother Hx of bipolar disorder Maternal Aunt History of breast cancer in female Paternal Grandmother Family hx-stroke Maternal Aunt Breast cancer Stomach cancer Social History Household Members: Spouse and Children Housing: Apartment Are you a primary school child care attendant to a significant other at home: No Do you presently have visiting nurse or other home services: No Alcohol intake: current Alcohol intake frequency: holidays/special occasions only Patient Tobacco Use Status: Never used Tobacco e-Cigarette/Vaping Use: Never Used Second Hand Smoke Exposure: No service: No 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al status: unemployed Cognitive needs: No Hearing needs: No Vision needs: Yes (glasses) Female Reproductive History Menstrual Age of Menarche: 15 Questionnaire PHQ-9 Over the last 2 weeks, how often have you been bothered by any of the following problems? 1. Little interest or pleasure in doing things: several days 2. Feeling down, depressed, or hopeless: not at all 3. Trouble falling or staying asleep, or sleeping too much: more than half the days 4. Feeling tired or having little energy: more than half the days 5. Poor appetite or overeating: several days 6. Feeling bad about yourself - or that you are a failure or have let yourself or your family down: not at all 7. Trouble concentrating on things, such as reading the newspaper or watching television: several days 8. Moving or speaking so slowly that other people could have noticed. Or the opposite - being so fidgety or restless that you have been moving around a lot more than usual: not at all 9. Thoughts that you would be better off or of hurting yourself in some way: not at all Total score: 7 Depression Screening Interpretation: Positive Depression Screening Follow-up: Existing condition Depression Screening Done: Yes Source: Developed by Drs. Dangelo Artis, Dede Villegas, Austen Paris and colleagues, with an educational ryann from [employer]. Thrive Questionnaire Date Thrive assessed: 07/11/24 I am a: Patient What is your living situation today?: I do not have a steady places to live I am temporarily staying with others Within the past 12 months, did the food you bought not last and you didn't have the money to get more?: Never true Within the past 12 months, did you worry whether your food would run out before you got money to buy more?: Never true Do you have trouble paying for medicines?: No Do you have trouble getting transportation to medical appointments?: No Do you have trouble paying your heating and electricity bill?: No Do you have trouble taking care of your child, family member or friend?: No Do you have trouble with day-to-day activities such as bathing, preparing meals, shopping, managing finances, etc.?: No Are you currently unemployed and looking for a job?: Yes Are you interested in more education?: No Please select the resources that you would like help with: None Currently or been in a relationship where the following occur: No concerns reported THRIVE Score: 1 AUDIT C Alcohol Use Questionnaire (AUDIT-C) 1. How often do you have a drink containing alcohol?: Never 3. How often do you have six or more drinks on one occasion?: Never Total Score: 0 EUGENE-7 AMB Questionnaire EUGENE-7 Date EUGENE - 7 assessed: 10/13/24 Feeling nervous, anxious, or on edge: 0 = Not at all Not being able to stop or control worryin = Not at all Worrying too much about different things: 0 = Not at all Trouble relaxin = More than half the days Being so restless that it is hard to sit still: 0 = Not at all Becoming easily annoyed or irritable: 2 = More than half the days Feeling afraid as if something awful might happen: 0 = Not at all Total EUGENE-7 score (0-4 normal; 5-9 mild; 10-14 moderate; 15-21 severe): 4 Source: Developed by Drs. Dangelo Artis, Dede Villegas, Austen Paris and colleagues, with an educational ryann from [employer]. Review of Systems Const Reports headache(s) Eyes Denies loss of vision ENT Denies vertigo, Denies dizziness, Reports headache(s) and Denies sore throat Card Denies chest pain, Denies leg edema and Denies lightheadedness Resp Denies cough, Denies hemoptysis and Denies wheezing GI Denies abdominal pain, Denies melena, Denies constipation, Denies diarrhea and Denies vomiting Denies urinary frequency, Denies dysuria and Denies urinary urgency Musc Denies arthralgias, Denies joint swelling, Denies numbness and Denies tingling Neuro Denies Abnormal speech present, Denies behavioral changes, Denies vertigo, Denies dizziness, Reports headache(s), Denies loss of vision, Denies memory loss, Denies numbness and Denies tingling Psych Denies anxiety, Denies behavioral changes, Denies depression, Denies memory loss and Denies panic attacks Albert/Lymph Denies easy bleeding and Denies easy bruising Aller/Immun Denies wheezing Physical exam (Primary Care) Vital Signs: Last Vital Signs Temp 97.0 F 01/10/25 08:20 Pulse 83 01/10/25 08:20 BP 134/92 H 01/10/25 08:20 Pulse Ox 99 01/10/25 08:20 Oxygen Delivery Method Room Air 01/10/25 08:20 BMI result Body Mass Index 33.1 Tobacco/Smoking Status: Tobacco use Status Tobacco use date assessed 01/10/25 01/10/25 08:22 Patient Tobacco Use Status Never used Tobacco 01/10/25 08:22 e-Cigarette/Vaping Use Never Used 01/10/25 08:22 PHQ-9: PHQ-9 Score PHQ-9: Total score 7 01/10/25 08:48 Depression Screening Interpretation: Positive Depression Screening Follow-up: Existing condition Thrive Assessment: Date of Thrive Assessment Date Thrive assessed 07/11/24 01/10/25 08:22 Currently or been in a relationship where the following occur: No concerns reported Const General: healthy appearing, no acute distress, alert and awake Nutritional Appearance: well nourished Orientation/consciousness: oriented to person, oriented to place and oriented to time HENMT Ears: TM's normal bilaterally General nose exam: Normal nasal mucous membranes and turbinates present Eyes Conjunctivae: conjunctivae normal Sclerae: sclerae normal Pupils: Equal, round and reactive pupils present Neck Neck: Yes no lymphadenopathy and Yes no JVD Thyroid: Thyroid normal Carotids: no bruits Resp Effort & Inspection: normal respiratory effort and not tachypneic Auscultation: no crackles, no rales, no rhonchi and no wheezes Cardio Rate: regular rate Rhythm: regular rhythm Heart sounds: no murmurs and normal S1 and S2 GI Palpation (GI): Soft to palpation, nontender, no hepatomegaly and no splenomegaly Auscultation: normal bowel sounds Skin General skin exam: no rashes or lesions noted and dry skin Neuro General: oriented to person, oriented to place and oriented to time Cranial nerves: Yes Equal, round and reactive pupils present Speech: No Abnormal speech present Gait exam (Neuro): Normal gait present Motor exam (neuro): no tremor noted Extrem Right upper extremity: full ROM Left upper extremity: full ROM Right lower extremity: full ROM; no edema Left lower extremity: full ROM; no edema Psych Mental Status: mental status grossly normal Speech and movement: Normal speech and movement present Affect: normal affect Attitude: cooperative Thought process: Normal thought process present Coding Level of Care Code Est Pt Level 4 (12200) Diagnoses Migraine without status migrainosus, not intractable, unspecified migraine type G43.909 Intractability: not intractable Migraine type: unspecified Status migrainosus presence: without status migrainosus Bright red blood per rectum K62.5 Assessment & Plan Assessment & Plan (1) Migraines: Code(s): G43.909 - Migraine, unspecified, not intractable, without status migrainosus Category: Medical Qualifiers: Intractability: not intractable Migraine type: unspecified Status migrainosus presence: without status migrainosus Qualified Code(s): G43.909 - Migraine, unspecified, not intractable, without status migrainosus Plan: For migraine prophylaxis, the patient will be started on propranolol extended- release 80 mg once daily in the morning. This medication was chosen as it can also address her elevated blood pressure, which may be a migraine trigger. The patient has a blood pressure monitor at home and will monitor her blood pressure and heart rate. She will continue with her scheduled neurology appointment next week to discuss further management. (2) Bright red blood per rectum: Code(s): K62.5 - Hemorrhage of anus and rectum Category: Medical Plan: Regarding the rectal bleeding, which is suspected to be from an anal fissure, the patient is advised to use stool softeners and take sitz baths with Epsom salt to soothe the area and promote healing. The patient was reassured that the bright red color of the blood indicates a lower gastrointestinal source and it is expected to resolve. Medications: New propranolol ER (Inderal LA) 80 mg PO DAILY 30 caps 1RF 30 days I10 - Essential (primary) hypertension
--- OUTSIDE RECORDS SUMMARY | 2025-01-10 08:25 | XMS_ITS | Patient Health Record ---
Author Organization [facility] Address [address] [place] [address] Care Team Providers Care Generalist Name Role Phone LETYKAYKAY Peter Unavailable [phone] Stacy Jovel Unavailable [phone] Allergies Allergen (clinical drug ingredient) Drug/Non Drug Allergy documented on EMR Reaction Allergy Type Onset Date Status Shellfish (FN) Shellfish-derived Products Unknown Drug Allergy Active Results Component Value Reference Range Notes Ct/GC CHELSEY, Pharyngeal-[id number] Reviewed date:07/13/2024 12:36:15 PM Interpretation:Negative Performing Lab:[facility], [address], [address], [employer], Phone - [phone], Director - [facility] Notes/Report: C. trachomatis, CHELSEY, Pharyn Negative Negative N. gonorrhoeae, CHELSEY, Pharyn Negative Negative Ct/GC CHELSEY, Rectal-[id number] Reviewed date:07/13/2024 12:37:04 PM Interpretation:Negative Performing Lab:[facility], [address], [address], [employer], Phone - [phone], Director - [facility] Notes/Report: C. trachomatis, CHELSEY, Rectal Negative Negative N. gonorrhoeae, CHELSEY, Rectal Negative Negative Ct, Ng, Trich vag by CHELSEY-[id number] Reviewed date:07/13/2024 12:36:46 PM Interpretation:Negative Performing Lab:[facility], [address], [address], [employer], Phone - [phone], Director - [facility] Notes/Report: Chlamydia by CHELSEY Negative Negative Gonococcus by CHELSEY Negative Negative Trich vag by CHELSEY Negative Negative HCV Antibody RFX to Quant PC [id number] Reviewed date:07/13/2024 12:37:16 PM Interpretation:Non-reactive Performing Lab:[facility] [place], [address], [address], [place], Phone - [phone], Director - [facility] Notes/Report: HCV Ab Non Reactive Non Reactive Interpretation: Not infected with HCV unless early or acute infection is suspected (which may be delayed in an immunocompromised individual), or other evidence exists to indicate HCV infection. HIV Ab/p24 Ag with Reflex-[id number] Reviewed date:07/13/2024 12:37:26 PM Interpretation:Non-reactive Performing Lab:[facility] [place], [address], [address], [employer], Phone - [phone], Director - [facility] Notes/Report: HIV Ab/p24 Ag Screen Non Reactive Non Reactive HIV-1/HIV-2 antibodies and HIV-1 p24 antigen were NOT detected. There is no laboratory evidence of HIV infection. HIV Negative T pallidum Screening [place] -[id number] Reviewed date:07/13/2024 12:37:36 PM Interpretation:Non-reactive Performing Lab:[facility] [place], [address], [address], [place], Phone - [phone], Director - [facility] Notes/Report: T pallidum Antibodies Non Reactive [...] No Encounters Encounter Location Date Provider Diagnosis [facility] [address] [place] [address] [id number] 03/08/2024 KAYKAY PATTEN Encounter for prescription of emergency contraception Z30.012 [facility] [address] [place] [address] [id number] 07/07/2024 Stacy Jovel Encounter for screening for [...] patient Ordering medication/ test/proced ures Established Patient: [id number] 10 Minutes 07/07/2024 Counseling, unspecified (ICD-10 - Z71.9) Spent 10 minutes doing the following: Chart Prep Obtaining/r eviewing history Counseling/ Coordinatio n of Care Documenting the visit Educating the patient Ordering medication/ test/proced ures Established Patient: [id number] 10 Minutes 07/07/2024 Other problems related to lifestyle (ICD-10 - Z72.89) Spent 10 minutes doing the following: Chart Prep Obtaining/r eviewing history Counseling/ Coordinatio n of Care Documenting the visit Educating the patient Ordering medication/ test/proced ures Established Patient: [id number] 10 Minutes 07/07/2024 HIV Screening (ICD-10 - Z11.4) Spent 10 minutes doing the following: Chart Prep Obtaining/r eviewing history Counseling/ Coordinatio n of Care Documenting the visit Educating the patient Ordering medication/ test/proced ures Established Patient: [id number] 10 Minutes 07/07/2024 Screening for other viral diseases (ICD-10 - Z11.59) Spent 10 minutes doing the following: Chart Prep Obtaining/r eviewing history Counseling/ Coordinatio n of Care Documenting the visit Educating the patient Ordering medication/ test/proced ures Established Patient: [id number] 10 Minutes 03/08/2024 Other Discussed STI risks, screening, and safe sex Plan Of Treatment No Information Insurance Providers Payer Name Payer Address Payer Phone Subscriber Number Group Number Insured Name Patient Relationship to Insured Coverage Start Date Coverage End Date [place] ATT CLAIMS [address] [place] [id number] Filemon Helton Self - patient is the insured Medical (General) History Surgical History Surgery Date(Month/Year) c section x 2
== END 2025-01-10 09:03 | disposition home or self-care (01) ==
LOC: HO.HMCH 08:19
PROVIDERS: PCP Physician Assistant; Visit Provider Physician Assistant
DX: G43.909 Migraine, unspecified, not intractable, without status migrainosus (principal); K62.5 Hemorrhage of anus and rectum

== ENCOUNTER → 2025-01-10 08:18 | Outpatient (BNVA) | payer OTHER, SELFPAY | PROVIDERS: PCP Physician Assistant; Visit Provider Physician Assistant | DX: I10 Essential (primary) hypertension (principal); F41.1 Generalized anxiety disorder; F32.A Depression, unspecified; E66.9 Obesity, unspecified; K62.5 Hemorrhage of anus and rectum; G43.909 Migraine, unspecified, not intractable, without status migrainosus; Z68.33 Body mass index [BMI] 33.0-33.9, adult | CPT/HCPCS: 99212 ==

== ENCOUNTER 2025-01-15 08:22 | Outpatient (REF) | payer OTHER, SELFPAY ==
--- NOTE | 2025-01-15 09:51 | EEG_ITS ---
Reason for Exam: G40.209 Complex partial seizure History: 29-year-old woman with complex partial seizure disorder (symptoms included confusion, spacing out, getting lost while driving, and similar episodes. The symptoms happened when she was put on Wellbutrin. Once that was stopped she stopped having the symptoms) and migraines. She was here with more headaches and episodes of blacking out. She was seen at [facility] in 09/2024 at the recommendation of urgent care for episodes of blacking out and had CT scan done. She describes the episodes of blacking out as vision going black and sometimes with dots in her vision lasting about 5-10 minutes. She is fully aware and alert when it happens, and says she always has a headache. Episodes happen once every 2-3 weeks and may be triggered by stress. She reports having significant amount of stress, and she was working with therapist and psychiatrist. She was prescribed lamotrigine for mood. Headaches were happening almost every day. Pain usually one sided, usually left and behind eye, throbbing or pressure-type with some photophobia and sonophobia, and occasionally nausea. She also occasionally had some scalp parasethesia. Medications: etonogestrel-ethinyl estradiol, ferrous sulfate, fluconazole, hydroxyzine, lamotrigine, metronidazole Technical Description Photic Stimulation: completed Hyperventilation: performed - good effort Behavioral State: pleasant State of Consciousness: awake and drowsy Skull Defect: none Sedation: none Handedness: right Duration: 32 min 21 sec Description: This is a 16 channel EEG with an EKG lead. Patient is reported awake and drowsy during the tracing. Background EEG rhythm during wakefulness is about 10 hertz 5-100 microvolt posteriorly lower amplitude fast anteriorly. Patient transitioned in and out of drowsiness. Photic stimulation does not produce any significant abnormality. Hyperventilation is unremarkable. Cardiac lead does not reveal any significant abnormality. No sharp wave spikes paroxysmal tendency or asymmetry noted. Impression: Unremarkable EEG. MTDD
== END 2025-01-15 08:23 | disposition home or self-care (01) ==
LOC: HO.NEURO 08:22
PROVIDERS: PCP Physician Assistant; Visit Provider Registered Nurse
DX: G40.209 Localization-related (focal) (partial) symptomatic epilepsy and epileptic syndromes with complex partial seizures, not intractable, without status epilepticus (principal)
CPT/HCPCS: 95816

== ENCOUNTER → 2025-01-15 09:51 | Outpatient (BNV) | payer OTHER, SELFPAY | PROVIDERS: PCP Physician Assistant; Visit Provider Psychiatry & Neurology Neurology | DX: G40.209 Localization-related (focal) (partial) symptomatic epilepsy and epileptic syndromes with complex partial seizures, not intractable, without status epilepticus (principal) | CPT/HCPCS: 95816 ==

== ENCOUNTER 2025-01-18 08:23 | Outpatient (AMB) | payer OTHER, SELFPAY ==
--- NOTE | 2025-01-18 08:47 | A.OFFVIS_ITS ---
Intake Visit Reasons: AFTER EEG Allergies sumatriptan Allergy (Intermediate, Verified 01/18/25 08:54) Nausea shellfish derived (SHELLFISH DERIVED) Allergy (Mild, Verified 01/18/25 08:54) ITCHING bupropion (From Wellbutrin) Allergy (Unknown, Verified 01/18/25 08:54) Seizure nifedipine Adverse Reaction (Intermediate, Verified 01/18/25 08:54) Headaches Medication List - Last Reconciled 01/18/25 by Lissy Bustillos CNP etonogestrel-ethinyl estradiol 0.12-0.015 mg/24 hr (NuvaRing) 1 vag ring vaginal Q4W 3 weeks ferrous sulfate 325 mg PO BID ferrous sulfate 325 mg PO DAILY 90 days hydroxyzine HCl 20 mg (2 x 10 mg) PO BEDTIME PRN lamotrigine 100 mg PO DAILY propranolol ER (Inderal LA) 80 mg PO DAILY 30 days topiramate 25 mg PO BEDTIME HPI Comments Details: 29-year-old woman with complex partial seizure disorder (symptoms included confusion, spacing out, getting lost while driving, and similar episodes. The symptoms happened when she was put on Wellbutrin. Once that was stopped she stopped having the symptoms) and migraines. She was seen at [facility] [place] this month after taking sumatriptan which made headaches drastically worse, and caused increased nausea and sensitivity to smells, and generalized body aches. She had a follow up with her PCP last week who prescribed propranolol ER 80mg to help with blood pressure and migraines, but she has not started medication yet. She was taking topiramate 25mg at bedtime, and migraines were better with medication. She did not try to take medication twice a day. No medicataion side effects. Migraines were happening about 1-2x/week now. She still occasionally had some scalp paraesthesias. Previously, headaches were happening almost every day with pain usually to left side of head and behind eye, throbbing or pressyre-type, with some photophobia, sonophobia, and sometimes nausea. No further episodes of blacking out. She was working on managing stress, following with psychiatrist and therapist. She was prescribed lamotrigine for mood. Sleep was still not so good. [facility] Medical History Vaginitis and vulvovaginitis Galactorrhea Right ankle sprain Encounter for screening H/O partial seizures Anemia Surgical History Hx of wisdom tooth extraction Hx of section Family History Mother History of mental problems Brother Hx of bipolar disorder Maternal Aunt History of breast cancer in female Paternal Grandmother Family hx-stroke Maternal Aunt Breast cancer Stomach cancer Social History Household Members: Spouse and Children Housing: Apartment Are you a primary healthcare management consultant to a significant other at home: No Do you presently have visiting nurse or other home services: No Alcohol intake: current Alcohol intake frequency: holidays/special occasions only Patient Tobacco Use Status: Never used Tobacco e-Cigarette/Vaping Use: Never Used Second Hand Smoke Exposure: No service: No 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al status: unemployed Cognitive needs: No Hearing needs: No Vision needs: Yes (glasses) Female Reproductive History Menstrual Age of Menarche: 15 Review of Systems Const Denies chills, Denies daytime sleepiness, Denies difficulty sleeping, Denies fatigue, Denies fever(s), Denies frequent falls, Reports headache(s), Denies increased appetite, Denies poor appetite, Denies snoring, Denies weakness, De nies weight gain and Denies weight loss Eyes Denies loss of vision ENT Denies vertigo, Denies dizziness and Reports headache(s) Card Denies chest pain at rest, Denies chest pain with activity, Denies syncope, Denies leg edema and Denies palpitations Resp Denies snoring GI Denies constipation, Denies heartburn, Denies diarrhea and Denies nausea Denies urinary frequency, Denies urinary incontinence and Denies urinary urgency Musc Denies abnormal gait, Denies numbness and Denies tingling Skin/Breast Denies dry skin and Denies rash Neuro Denies abnormal gait, Denies vertigo, Denies dizziness, Denies syncope, Denies frequent falls, Reports headache(s), Denies lack of coordination, Denies loss of vision, Denies memory loss, Denies numbness, Denies restless legs, Denies seizure-like activity, Denies tingling, Denies paresthesias, Denies tremor(s) and Denies weakness Psych Denies anxiety, Denies depression, Denies auditory hallucinations, Denies memory loss, Denies visual hallucinations and Denies suicidal ideation Endo Denies fatigue and Denies palpitations Physical Exam Const Other: General Appearance:? normal, in no acute distress. Skin:? no rashes, no significant birthmarks. Heart:? S1, S2 normal, no murmurs. Lungs:? clear anteriorly and posteriorly. Extremities:? no edema. Psych:? alert, oriented, cognitive function intact, cooperative with exam. Neuro Other: Mental Status:?Normal attention, orientation, memory and affect.? Cranial Nerves:?Pupils are equal, round and reactive to light. External occular muscles are intact. Visual keys are full. Face is symmetrical. Facial sensations are normal. Tongue is midline. Palate elevates symmetrically. Shoulder shrugging is normal. Hearing to bedside conversation is normal. Sensory Exam:?....? Coordination:?No ataxia,?no titubation.? Gait Exam: Within normal limits. Extrapyramidal System:?No tremor, rigidity with normal facial expressions.? Pronator Drift:?Not present.? Involuntary Movements:?No tremors seen.? Speech:?Normal.? Results Reviewed Results Reviewed: [place] [id number] Electroencephalogram Report Signed Patient: Filemon Helton MR#: [id number] : 1995 Acct:[id number] Age/Sex: 29 / F ADM Date: 01/15/25 Loc: HO.NEURO Attending Dr: Lissy Bustillos CNP Ordering Physician: Lissy Bustillos CNP Date of Service: 01/15/25 Procedure(s): EEG Routine Accession Number(s): [id number] cc: Justice Raygoza PA-C~ Reason for Exam: G4 - Localization-related (focal) (partial) symptomatic epilepsy an... Reason for Exam: G4 Complex partial seizure History: 29-year-old woman with complex partial seizure disorder (symptoms included confusion, spacing out, getting lost while driving, and similar episodes. The symptoms happened when she was put on Wellbutrin. Once that was stopped she stopped having the symptoms) and migraines. She was here with more headaches and episodes of blacking out. She was seen at [facility] in 09/[place] at the recommendation of urgent care for episodes of blacking out and had CT scan done. She describes the episodes of blacking out as v ision going black and sometimes with dots in her vision lasting about 5-10 minutes. She is fully aware and alert when it happens, and says she always has a headache. Episodes happen once every 2-3 weeks and may be triggered by stress. She reports having significant amount of stress, and she was working with therapist and psychiatrist. She was prescribed lamotrigine for mood. Headaches were happening almost every day. Pain usually one sided, usually left and behind eye, throbbing or pressure-type with some photophobia and sonophobia, and occasionally nausea. She also occasionally had some scalp parasethesia. Medications: etonogestrel-ethinyl estradiol, ferrous sulfate, fluconazole, hydroxyzine, lamotrigine, metronidazole Technical Description Photic Stimulation: completed Hyperventilation: performed - good effort Behavioral State: pleasant State of Consciousness: awake and drowsy Skull Defect: none Sedation: none Handedness: right Duration: 32 min 21 sec Description: This is a 16 channel EEG with an EKG lead. Patient is reported awake and drowsy during the tracing. Background EEG rhythm during wakefulness is about 10 hertz 5-100 microvolt posteriorly lower amplitude fast anteriorly. Patient transitioned in and out of drowsiness. Photic stimulation does not produce any significant abnormality. Hyperventilation is unremarkable. Cardiac lead does not reveal any significant abnormality. No sharp wave spikes paroxysmal tendency or asymmetry noted. Impression: Unremarkable EEG. Dictated By: Joe Satnos MD Signed By: <Electronically signed by Joe Santos MD> 01/15/[address] head [place] [facility] [place]: No acute intracranial findings. Labs at [facility] [place] and 10/2024: Ok with some anemia MRI brain WO at [facility] [place]: WNL Routine EEG at [facility] [place]: b/l [facility] in 2021: WNL with no events reported Assessment & Plan Assessment & Plan (1) Migraines: Code(s): G43.909 - Migraine, unspecified, not intractable, without status migrainosus Category: Medical Qualifiers: Intractability: not intractable Migraine type: unspecified Status migrainosus presence: without status migrainosus Qualified Code(s): G43.909 - Migraine, unspecified, not intractable, without status migrainosus Plan: EEG results reviewed, WNL. She had side effects with sumatriptan and medication was stopped. Discussed option for trying alternative as needed medication (such as rizatriptan or butalbital), but she was not interested at this time. She was advised to avoid using OTC analgesics (such as Tylenol, ibuprofen, Excedrin) more than 2-3x/week. She did not try topiramate twice a day. She was taking topiramate 25mg 1 tablet at bedtime and migraines were better, down to about 2x/week. Continue topiramate 25mg 1 tablet at bedtime. She was prescribed propranolol ER 80mg daily by PCP earlier this month to address high blood pressure and migraines which she has not started yet. She was encouraged to start this medication and follow up with PCP for blood pressure management. (2) Complex partial seizure: Code(s): G40.209 - Localization-related (focal) (partial) symptomatic epilepsy and epileptic syndromes with complex partial seizures, not intractable, without status epilepticus Category: Medical Plan Meds tried: sumatriptan Medications: Changed From topiramate 25 mg PO BEDTIME To topiramate 25 mg PO BEDTIME 90 tabs 0RF 90 days Coding Level of Care Code Est Pt Level 4 (45421) Diagnoses Migraine without status migrainosus, not intractable, unspecified migraine type G43.909 Intractability: not intractable Migraine type: unspecified Status migrainosus presence: without status migrainosus Complex partial seizure G40.209
--- OUTSIDE RECORDS SUMMARY | 2025-01-18 08:58 | XMS_ITS | Patient Health Record ---
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 trachomatis, CHELSEY, Pharyn Negative Negative N. gonorrhoeae, CHELSEY, Pharyn Negative Negative Ct/GC CHELSEY, Rectal-[id number] Reviewed date:07/13/2024 12:37:04 PM Interpretation:Negative Performing Lab:[facility], [address], [address], [place], Phone - [phone], Director - [facility] Notes/Report: C. trachomatis, CHELSEY, Rectal Negative Negative N. gonorrhoeae, CHELSEY, Rectal Negative Negative Ct, Ng, Trich vag by CHELSEY-[id number] Reviewed date:07/13/2024 12:36:46 PM Interpretation:Negative Performing Lab:[facility], [address], [address], [place], Phone - [phone], Director - [facility] Notes/Report: Chlamydia by CHELSEY Negative Negative Gonococcus by CHELSEY Negative Negative Trich vag by CHELSEY Negative Negative HCV Antibody RFX to Quant PC [id number] Reviewed date:07/13/2024 12:37:16 PM Interpretation:Non-reactive Performing Lab:[facility] [place], [address], [address], [place], Phone - [phone], Director - [facility] Notes/Report: HCV Ab Non Reactive Non Reactive Interpretation: Not infected with HCV unless early or acute infection is suspected (which may be delayed in an immunocompromised individual), or other evidence exists to indicate HCV infection. HIV Ab/p24 Ag with Reflex-[id number] Reviewed date:07/13/2024 12:37:26 PM Interpretation:Non-reactive Performing Lab:[facility] [place], [address], [address], [place], Phone - [phone], Director - [facility] Notes/Report: HIV Ab/p24 Ag Screen Non Reactive Non Reactive HIV-1/HIV-2 antibodies and HIV-1 p24 antigen were NOT detected. There is no laboratory evidence of HIV infection. HIV Negative T pallidum Screening [place] -[id number] Reviewed date:07/13/2024 12:37:36 PM Interpretation:Non-reactive Performing Lab:[facility] [place], [address], [address], [place], Phone - [phone], Director - [facility] Notes/Report: T pallidum Antibodies Non Reactive [...] No Encounters Encounter Location Date Provider Diagnosis [facility] [address] [place] [address] [id number] 03/08/2024 KAYKAY PATTEN Encounter for prescription of emergency contraception Z30.012 [facility] [address] [place] [address] [id number] 07/07/2024 Stacy Jovel Encounter for screening for [...] patient Ordering medication/ test/proced ures Established Patient: [id number] 10 Minutes 07/07/2024 Counseling, unspecified (ICD-10 - Z71.9) Spent 10 minutes doing the following: Chart Prep Obtaining/r eviewing history Counseling/ Coordinatio n of Care Documenting the visit Educating the patient Ordering medication/ test/proced ures Established Patient: [id number] 10 Minutes 07/07/2024 Other problems related to lifestyle (ICD-10 - Z72.89) Spent 10 minutes doing the following: Chart Prep Obtaining/r eviewing history Counseling/ Coordinatio n of Care Documenting the visit Educating the patient Ordering medication/ test/proced ures Established Patient: [id number] 10 Minutes 07/07/2024 HIV Screening (ICD-10 - Z11.4) Spent 10 minutes doing the following: Chart Prep Obtaining/r eviewing history Counseling/ Coordinatio n of Care Documenting the visit Educating the patient Ordering medication/ test/proced ures Established Patient: [id number] 10 Minutes 07/07/2024 Screening for other viral diseases (ICD-10 - Z11.59) Spent 10 minutes doing the following: Chart Prep Obtaining/r eviewing history Counseling/ Coordinatio n of Care Documenting the visit Educating the patient Ordering medication/ test/proced ures Established Patient: [id number] 10 Minutes 03/08/2024 Other Discussed STI risks, screening, and safe sex Plan Of Treatment No Information Insurance Providers Payer Name Payer Address Payer Phone Subscriber Number Group Number Insured Name Patient Relationship to Insured Coverage Start Date Coverage End Date [place] [address] [place] [id number] [phone] [id number] Filemon Helton Self - patient is the insured Medical (General) History Surgical History Surgery Date(Month/Year) c section x 2
== END 2025-01-18 09:04 | disposition home or self-care (01) ==
LOC: HO.HSM 08:23
PROVIDERS: PCP Physician Assistant; Visit Provider Registered Nurse
DX: G43.909 Migraine, unspecified, not intractable, without status migrainosus (principal); G40.209 Localization-related (focal) (partial) symptomatic epilepsy and epileptic syndromes with complex partial seizures, not intractable, without status epilepticus
CPT/HCPCS: 99214

== ENCOUNTER → 2025-01-18 08:23 | Outpatient (BNVA) | payer OTHER, SELFPAY | PROVIDERS: PCP Physician Assistant; Visit Provider Registered Nurse | DX: G43.909 Migraine, unspecified, not intractable, without status migrainosus (principal); G40.209 Localization-related (focal) (partial) symptomatic epilepsy and epileptic syndromes with complex partial seizures, not intractable, without status epilepticus; Z79.899 Other long term (current) drug therapy | CPT/HCPCS: 99212 ==

== ENCOUNTER 2025-02-06 10:12 | Outpatient (AMB) | payer OTHER, SELFPAY ==
--- NOTE | 2025-02-06 10:12 | A.OFFPC_ITS ---
Intake Visit Reasons: f/u ( telehealth - [facility]) Personnel Clerk Required: No Newspaper Subscription Solicitor: Not Required per policy Accompanied by: Self / Same As Patient Allergies sumatriptan Allergy (Intermediate, Verified 02/06/25 10:37) Nausea shellfish derived (SHELLFISH DERIVED) Allergy (Mild, Verified 02/06/25 10:37) ITCHING bupropion (From Wellbutrin) Allergy (Unknown, Verified 02/06/25 10:37) Seizure nifedipine Adverse Reaction (Intermediate, Verified 02/06/25 10:37) Headaches Medication List - Last Reconciled 02/06/25 by Justice Raygoza PA-C etonogestrel-ethinyl estradiol 0.12-0.015 mg/24 hr (NuvaRing) 1 vag ring vaginal Q4W 3 weeks ferrous sulfate 325 mg PO BID ferrous sulfate 325 mg PO DAILY 90 days hydroxyzine HCl 20 mg (2 x 10 mg) PO BEDTIME PRN lamotrigine 100 mg PO DAILY propranolol ER (Inderal LA) 80 mg PO DAILY 30 days topiramate 25 mg PO BEDTIME 90 days Tobacco use date assessed: 01/10/25 Dental Screening Dental Screen Date: 01/10/25 HPI f/u ( telehealth - [facility]) HPI Details Patient is a 29-year-old female being evaluated today via telephone. Last visit we discussed patient's chronic migraines and help palpitations. We have started her on propranolol to which he has been taking an as needed basis for migraines 2-3 times per week. She reports propranolol has been working very well on reducing migraines. She does report having difficulty staying asleep. She has not used hydroxyzine much in his wondering if she can use hydroxyzine on a nightly basis/. [facility] Medical History Vaginitis and vulvovaginitis Galactorrhea Right ankle sprain Encounter for screening H/O partial seizures Anemia Surgical History Hx of wisdom tooth extraction Hx of section Family History Mother History of mental problems Brother Hx of bipolar disorder Maternal Aunt History of breast cancer in female Paternal Grandmother Family hx-stroke Maternal Aunt Breast cancer Stomach cancer Social History Household Members: Spouse and Children Housing: Apartment Are you a primary child care associate teacher to a significant other at home: No Do you presently have visiting nurse or other home services: No Alcohol intake: current Alcohol intake frequency: holidays/special occasions only Patient Tobacco Use Status: Never used Tobacco e-Cigarette/Vaping Use: Never Used Second Hand Smoke Exposure: No service: No 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al status: unemployed Cognitive needs: No Hearing needs: No Vision needs: Yes (glasses) Female Reproductive History Menstrual Age of Menarche: 15 Questionnaire Thrive Questionnaire Date Thrive assessed: 07/11/24 EUGENE-7 AMB Questionnaire EUGENE-7 Date EUGENE - 7 assessed: 10/13/24 Source: Developed by Drs. Dangelo Artis, Dede Villegas, Austen Paris and colleagues, with an educational ryann from [employer]. Review of Systems Const Reports headache(s) Eyes Denies loss of vision ENT Denies vertigo, Denies dizziness, Reports headache(s) and Denies sore throat Card Denies chest pain, Denies leg edema and Denies lightheadedness Resp Denies cough, Denies hemoptysis and Denies wheezing GI Denies abdominal pain, Denies melena, Denies constipation, Denies diarrhea and Denies vomiting Denies urinary frequency, Denies dysuria and Denies urinary urgency Musc Denies arthralgias, Denies joint swelling, Denies numbness and Denies tingling Neuro Denies behavioral changes, Denies vertigo, Denies dizziness, Reports headache(s), Denies loss of vision, Denies memory loss, Denies numbness and Denies tingling Psych Reports abnormal sleep pattern, Denies anxiety, Denies behavioral changes, Denies depression, Denies memory loss and Denies panic attacks Albert/Lymph Denies easy bleeding and Denies easy bruising Aller/Immun Denies wheezing Physical exam (Primary Care) Tobacco/Smoking Status: Tobacco use Status Tobacco use date assessed 01/10/25 02/06/25 10:14 Patient Tobacco Use Status Never used Tobacco 02/06/25 10:14 e-Cigarette/Vaping Use Never Used 12/09/25 10:14 Thrive Assessment: Date of Thrive Assessment Date Thrive assessed 07/11/24 02/06/25 10:14 Telehealth Telehealth Telehealth Platform: Telephone Location of provider rendering services: practice address Location of patient: address on file Patient Identification confirmed using: Name, : Yes Telehealth method: voice only Patient verbally consented to treatment: Yes Patient verbally consented to billing insurance company: Yes Patient informed of any privacy concerns related to visit: Yes Coding Level of Care Code Tele Est Pt Level 3 (98141) Diagnoses Primary insomnia F51.01 Insomnia type: primary Migraine without status migrainosus, not intractable, unspecified migraine type G43.909 Intractability: not intractable Migraine type: unspecified Status migrainosus presence: without status migrainosus Assessment & Plan Assessment & Plan (1) Insomnia: Code(s): G47.00 - Insomnia, unspecified Category: Medical Qualifiers: Insomnia type: primary Qualified Code(s): F51.01 - Primary insomnia Plan: Patient has been difficulty with staying asleep. She will start using her hydroxyzine on a nightly basis to help her sleep. (2) Migraines: Code(s): G43.909 - Migraine, unspecified, not intractable, without status migrainosus Category: Medical Qualifiers: Intractability: not intractable Migraine type: unspecified Status migrainosus presence: without status migrainosus Qualified Code(s): G43.909 - Migraine, unspecified, not intractable, without status migrainosus Plan: Patient reports her migraines has been a bit less frequent and severe with the use of propranolol. She will use her propranolol on a as needed basis.
== END 2025-02-06 11:20 | disposition home or self-care (01) ==
LOC: HO.HMCH 10:12
PROVIDERS: PCP Physician Assistant; Visit Provider Physician Assistant
DX: F51.01 Primary insomnia (principal); G43.909 Migraine, unspecified, not intractable, without status migrainosus